=== PATIENT | female | born 1950 | race Asian ===

== ENCOUNTER 2017-10-02 19:15 | Emergency (ER) | payer MEDICARE, OTHER, SELFPAY ==
[2017-10-02 19:26] VITALS: BP 148/89; PULSE 92; RESP 12; TEMP 36.4; O2SAT 99; BMI 24.2
[2017-10-02 20:30] VITALS: BP 125/76; PULSE 86; RESP 14; O2SAT 96
--- NOTE | 2017-10-02 20:55 | ED_ITS ---
HPI - Allergic Reaction <ADELINA Gonzalez - Last Filed: 10/02/17 22:25> General Chief complaint: Allergic Reaction Stated complaint: BEE STING RIGHT HAND AND RIGHT LEG Time Seen by Provider: 10/02/17 20:02 Source: patient Mode of arrival: ambulatory Limitations: no limitations History of Present Illness HPI narrative: 66-year-old female here for complaint of bee stings to her right leg into her right hand. She states that she was stung earlier today in the morning. She reports that after she was done she has some swelling into her face and some feeling of dryness to her throat making it difficult for for swallow. She states that those symptoms have resolved by the time she reported to the emergency room today. She denies any prior history of having anaphylactic type of response to any insect stings. So complaints at this time now are her swelling to her right lower extremity into her right hand. No other concerns or complaints at this time. MD complaint: allergic reaction Related Data Home Medications Medication Instructions Recorded Confirmed amlodipine [Norvasc] 2.5 mg PO QDAY #0 01/20/17 aspirin 81 mg PO QDAY #0 01/20/17 atorvastatin [Lipitor] 20 mg PO QDAY #0 01/20/17 calcium carbonate-vitamin D3 1 tab PO BID #0 01/20/17 [Oyster Shell Calcium-Vit D3] lisinopril [Zestril] 20 mg PO QDAY #0 01/20/17 Previous Rx's Medication Instructions Recorded acetaminophen 650 mg PO Q4HP PRN #30 tab 02/04/17 docusate sodium [Colace] 100 mg PO BID #14 cap 02/04/17 ibuprofen 400 mg PO Q6HP PRN #20 tab 02/04/17 oxycodone 5 mg PO Q4HP PRN #30 tab 02/04/17 sennosides [Senokot] 8.6 mg PO QDAY #10 tab 02/04/17 cetirizine 10 mg PO DAILY PRN #4 tab 10/02/17 epinephrine [EpiPen 2-Damaso] 0.3 mg IM Q30M PRN #2 each 10/02/17 prednisone 20 mg PO DAILY #3 tab 10/02/17 Allergies Allergy/AdvReac Type Severity Reaction Status Date / Time No Known Drug Allergies Allergy Verified 10/02/17 19:30 Review of Systems <ADELINA Gonzalez - Last Filed: 10/02/17 22:25> Constitutional Denies chills, Denies fatigue, Denies fever(s), Denies lethargy and Denies weakness Eyes Denies change in vision, Denies eye discharge, Denies irritation and Denies loss of vision ENT Ears, Nose, Mouth, and Throat: Denies change in voice, Denies neck pain and Denies sore throat Cardiovascular Denies dyspnea and Denies dyspnea on exertion Respiratory Denies cough, Denies dyspnea, Denies dyspnea on exertion and Denies wheezing Gastrointestinal Gastrointestinal: Denies abdominal pain, Denies change in bowel habits, Denies diarrhea, Denies nausea and Denies vomiting Genitourinary Denies hematuria, Denies flank pain, Denies urinary incontinence and Denies urinary urgency Musculoskeletal Denies neck pain Comments: Swelling and erythema to the right hand and also to the right lower extremity at site of insect bite. Integumentary/Breasts Denies pruritus, Denies erythema, Denies rash and Denies wounds Neurologic Denies confusion, Denies loss of vision and Denies weakness Psychiatric Denies anxiety, Denies confusion, Denies depression, Denies homicidal ideation and Denies suicidal ideation Endocrine Denies fatigue and Denies flushing Hematologic/Lymphatic Denies easy bruising Allergic/Immunologic Denies wheezing Exam <ADELINA Gonzalez - Last Filed: 10/02/17 22:25> Initial Vital Signs Initial Vital Signs: Vital Signs Temperature 97.5 F L 10/02/17 19:26 Pulse Rate 92 H 10/02/17 19:26 Respiratory Rate 12 10/02/17 19:26 Blood Pressure 148/89 H 10/02/17 19:26 Pulse Oximetry 99 10/02/17 19:26 Const General: cooperative and well developed Nutritional Appearance: well nourished Orientation: alert, awake, oriented x3 and not confused HENGA Mouth: oral mucosae normal, oropharynx normal and moist mucous membranes Eyes Conjunctivae: conjunctivae normal Sclera: sclerae normal Pupils: PERRL EOM: EOM intact bilaterally Neck Neck: normal visual inspection, trachea midline, No lymphadenopathy, No midline deformity and No JVD Lymphatic: No lymphedema Resp Effort & Inspection: normal respiratory effort, able to speak in complete sentences, no respiratory distress and no use of accessory muscles Auscultation: clear to auscultation bilaterally, no rales, no rhonchi and no wheezes Cardio Rate: regular rate Rhythm: regular rhythm Heart Sounds: no click, no gallops, no murmurs and no rubs Skin General: no rashes or lesions noted, No jaundice and No petechiae Neuro General: alert, oriented x3, gait normal and no focal motor deficits Speech: speech normal Extrem Other: Swelling to the dorsal aspect of the right hand with some erythema. Swelling to the lateral aspect of the lower right extremity. Distal CMS is intact. <Mary Nichole DO - Last Filed: 10/03/17 05:42> Initial Vital Signs Initial Vital Signs: Vital Signs Temperature 97.5 F L 10/02/17 19:26 Pulse Rate 92 H 10/02/17 19:26 Respiratory Rate 12 10/02/17 19:26 Blood Pressure 148/89 H 10/02/17 19:26 Pulse Oximetry 99 10/02/17 19:26 Course <ADELINA Gonzalez - Last Filed: 10/02/17 22:25> Orders Ordered: Discontinued Medications Diphenhydramine HCl (Benadryl) 25 mg PO NOW ONE Stop: 10/02/17 20:53 Last Admin: 10/02/17 21:29 Dose: 25 mg Prednisone (Deltasone) 20 mg PO NOW ONE Stop: 10/02/17 20:53 Last Admin: 10/02/17 21:29 Dose: 20 mg Vital Signs - 8 hr 10/02/17 21:48 Pulse Rate 77 Respiratory Rate 20 Blood Pressure 146/85 H Pulse Oximetry 98 <DO Rebeca Carrillo Last Filed: 10/03/17 05:42> Orders Ordered: Discontinued Medications Diphenhydramine HCl (Benadryl) 25 mg PO NOW ONE Stop: 10/02/17 20:53 Last Admin: 10/02/17 21:29 Dose: 25 mg Prednisone (Deltasone) 20 mg PO NOW ONE Stop: 10/02/17 20:53 Last Admin: 10/02/17 21:29 Dose: 20 mg Vital Signs - 8 hr 10/02/17 21:48 Pulse Rate 77 Respiratory Rate 20 Blood Pressure 146/85 H Pulse Oximetry 98 MDM - Allergic Reaction <ADELINA Gonzalez - Last Filed: 10/02/17 22:25> [facility] Narrative Medical decision making narrative: At time of exam patient only had local reaction to the right hand into lower extremity. No signs and symptoms of distress no signs and symptoms of anaphylaxis. However subjective reports of face swelling and some sensation to her throat are concerning for possible anaphylactoid type response earlier in the day that has resolved. She is prescribed a EpiPen to have on her and have with her in case of similar symptoms. She is given Benadryl in the emergency room tonight and along with prednisone. She is prescribed a short course of prednisone and also Zyrtec to help relieve with her symptoms. Follow up with primary care provider the next few days for re-evaluation. Return emergency room for any worsening symptoms. Discharge Plan Departure Patient Disposition: Home, Self-Care Clinical Impression: Localized swelling on right hand, Accidental bee sting Discharge Date/Time: 10/02/17 21:49 Interventions: ED Discharge Assessment Last Done: 10/02/17 21:48 Instructions: DI for Insect Bites and Stings Activity Restrictions/Additional Instructions: Signs and symptoms at time of exam are of a localized response to the hand and right lower leg due to the bee sting. You are prescribed cetirizine an antihistamine use as directed along with prednisone steroid for anti- inflammatory effects over the next several days use as directed. Due to symptoms he reported is having earlier are concerning for having possible anaphylaxis type of reaction. You are prescribed an EpiPen keep with you to have ready in case she gets down again and have similar or worse symptoms from an insect sting. Follow up with her primary care provider in the next couple days for re-evaluation. For any worsening symptoms return to the emergency room. Prescriptions: New cetirizine 10 mg tablet 10 mg PO DAILY PRN (Reason: allergy symptoms) Qty: 4 RF: 0 prednisone 20 mg tablet 20 mg PO DAILY Qty: 3 RF: 0 epinephrine [EpiPen 2-Damaso] 0.3 mg/0.3 mL auto-injector 0.3 mg IM Q30M PRN (Reason: anaphylaxis) Qty: 2 RF: 0 No Action aspirin 81 MG tablet,delayed release (DR/EC) 81 mg PO QDAY Qty: 0 RF: 0 atorvastatin [Lipitor] 20 MG tablet 20 mg PO QDAY Qty: 0 RF: 0 lisinopril [Zestril] 20 MG tablet 20 mg PO QDAY Qty: 0 RF: 0 amlodipine [Norvasc] 2.5 MG tablet 2.5 mg PO QDAY Qty: 0 RF: 0 calcium carbonate-vitamin D3 [Oyster Shell Calcium-Vit D3] 500 MG/200 IU tablet 1 tab PO BID Qty: 0 RF: 0 acetaminophen 325 MG tablet 650 mg PO Q4HP PRNQty: 30 RF: 1 oxycodone 5 MG tablet 5 mg PO Q4HP PRNQty: 30 RF: 0 sennosides [Senokot] 8.6 MG tablet 8.6 mg PO QDAY Qty: 10 RF: 1 docusate sodium [Colace] 100 MG capsule 100 mg PO BID Qty: 14 RF: 1 ibuprofen 400 MG tablet 400 mg PO Q6HP PRNQty: 20 RF: 0 Referrals: Chevy Kapadia [Primary Care Provider] - <Mary Nichole DO - Last Filed: 10/03/17 05:42> Cosign ED Attending Sunilature Attestation: I was immediately available in the department for consultation. Documentation has been reviewed. I agree with assessment and plan.
[2017-10-02] MEDS: predniSONE 20 MG TABLET PO (21:29)
[2017-10-02] MEDS: diphenhydrAMINE 25 MG TABLET PO (21:29)
[2017-10-02 21:48] VITALS: BP 146/85; PULSE 77; RESP 20; O2SAT 98
== END 2017-10-02 21:49 | disposition home or self-care (01) ==
PROVIDERS: Emergency Provider Nurse Practitioner Family; Family Provider Family Medicine; PCP Family Medicine
DX: M79.89 Other specified soft tissue disorders (principal); T63.441A Toxic effect of venom of bees, accidental (unintentional), initial encounter
CPT/HCPCS: 99282; 99283

== ENCOUNTER → 2018-03-20 11:16 | Outpatient (CLI) | payer MEDICARE, OTHER, SELFPAY ==
--- NOTE | 2018-03-20 11:30 | DI.MG.S_ITS ---
Patient Name: LOBO VIVEROS date: 1950 Sex: F Attending Physician: Belkis Indications: Date: 03/20/2018 12:00 At the request of: FREDI ALVAREZ Procedure: MM screening mammo BI BILATERAL DIGITAL SCREENING MAMMOGRAM 3D/2D WITH CAD: 03/20/2018 CLINICAL: Routine screening. Comparison is made to exams dated: 06/19/2016 mammogram, 01/06/2014 mammogram, and 01/06/2013 mammogram - [facility]. There are scattered fibroglandular elements in both breasts. Current study was also evaluated with a Computer Aided Detection (CAD) system. No significant masses, calcifications, or other findings are seen in either breast. There has been no significant interval change. IMPRESSION: NEGATIVE There is no mammographic evidence of malignancy. A 1 year screening mammogram is recommended. This exam was interpreted at Station ID: [id number]. NOTE: For mammograms, a report in lay terms will be sent to the patient. Approximately 15% of breast malignancies will not be visualized mammographically. In the management of a palpable breast mass, a negative mammogram must not discourage biopsy of a clinically suspicious lesion. Electronically Signed By: Santosh ramirez/robert:03/20/2018 21:36:31 letter sent: Normal Exam ACR BI-RADS Category 1: Negative [id number]
== END ==
PROVIDERS: PCP Family Medicine; Visit Provider Family Medicine
DX: Z12.31 Encounter for screening mammogram for malignant neoplasm of breast (principal)
CPT/HCPCS: 77063; 77067

== ENCOUNTER → 2018-06-23 09:37 | Outpatient (CLI) | payer MEDICARE, OTHER, SELFPAY | PROVIDERS: PCP Family Medicine; Visit Provider Family Medicine | DX: M81.0 Age-related osteoporosis without current pathological fracture (principal); Z78.0 Asymptomatic menopausal state | CPT/HCPCS: 77080 ==

== ENCOUNTER 2018-09-26 14:21 | Emergency (ER) | payer MEDICARE, OTHER, SELFPAY ==
[2018-09-26 14:26] VITALS: BP 173/92; PULSE 95; RESP 16; TEMP 37.2; O2SAT 98
[2018-09-26 14:30] VITALS: PULSE 82; O2SAT 99
--- NOTE | 2018-09-26 14:54 | DI.RAD.S_ITS ---
PROCEDURE: XR CHEST 1V INDICATIONS: chest pain TECHNIQUE: One view of the chest was acquired. COMPARISON: [facility], CT, PE STUDY (CTA CHEST), 01/21/2017, 20:42. [facility], CR, ABDOMEN ACUTE SERIES, 01/30/2017, 15:26. FINDINGS: Surgical changes and devices: Previously seen tubes and lines have been removed. Lungs and pleura: Interval improvement in the aeration of the lungs since the prior study has occurred. No focal consolidation, effusion, or pneumothorax is appreciated. Mediastinum: Mediastinal contours appear normal. Heart size is enlarged. There is aortic atherosclerosis. Prominent tortuosity of the lower thoracic aorta similar to the prior CT from 01/21/17. Bones and chest wall: No suspicious bony lesions. Overlying soft tissues appear unremarkable. IMPRESSION: Cardiomegaly without overt heart failure. No acute cardiopulmonary process is evident. Dictated by: Ky Gilmore M.D. on 09/26/2018 at 14:43 Approved by: Ky Gilmore M.D. on 09/26/2018 at 14:45
[2018-09-26 15:27] LABS: Add Manual Diff / Slide Review NO; Basophils Absolute Auto 0 /uL (0-100); Basophils Percent Auto 0.7 % (0-2); Eosinophils Absolute Auto 100 /uL (0-450); Hematocrit 38.1 % (36-46); Hemoglobin 12.8 g/dL (12.0-16.0); Lymphocytes Absolute Auto 1500 /uL (1100-4500); Lymphocytes Percent Auto 29.3 % (25-40); Mean Corpuscular HGB Conc 33.6 % (30-36); Mean Corpuscular Hemoglobin 30.8 PG (26-34); Mean Corpuscular Volume 91.8 fL (80-100); Monocytes Absolute Auto 400 /uL (0-900); Monocytes Percent Auto 7.6 % (3-14); Neutrophils Absolute Auto 3200 /uL (1500-7000); Neutrophils Percent Auto 61.4 % (50-75); Platelet Count 242 X10^3/uL (150-400); Red Blood Cell Count 4.15 X10^6/uL (4.0-5.2); White Blood Cell Count 5.2 X10^3/uL (4.5-11.0)
[2018-09-26 15:29] LABS: Appearance Urine UA CLEAR; Bilirubin Urine UA NEGATIVE (NEGATIVE); Color Urine UA YELLOW; Glucose Urine UA NEGATIVE (Negative); Ketones Urine UA NEGATIVE (NEGATIVE); Leukocyte Esterase Urine UA 1+ (NEGATIVE); Nitrite Urine UA NEGATIVE (Negative); Occult Blood Urine UA TRACE-INTACT (Negative); Protein Urine UA NEGATIVE (Negative); Urobilinogen Urine UA 0.2 E.U./dL (0.2); pH Urine UA 6.5 (4.5-8.0)
[2018-09-26 15:35] LABS: Prothrombin Time 11.3 SECONDS (10.1-12.7)
[2018-09-26 15:38] LABS: PTT Partial Thromboplastin Tim 35 SECONDS (26.4-36.2)
--- NOTE | 2018-09-26 15:38 | ED.HA ---
HPI - Headache General Chief Complaint: Headache Stated Complaint: Chronic Hypertesion, facial numbness, headache Time Seen by Provider: 09/26/18 15:24 Source: patient and family () Mode of arrival: ambulatory Limitations: no limitations History of Present Illness HPI Narrative: Pleasant 59-year-old female comes to the emergency department with complaint of elevated blood pressure, she states the lower portion of her face bilaterally feels numb. She states she has had headache that alternates from left to right side of her head. And her neck alternating on the left and right side she sometimes feels like her nerves in her neck. Patient states that this started 2 days ago. She states that she noted that her blood pressures been elevated. She has had a little bit of vision change after having laser surgery on her left eye she has had a little bit of floaters. She denies any current chest pain or shortness of breath, occasionally nauseated no vomiting. She states sometimes it feels like lot a gas is going through her abdomen. Denies issues with bowel movements or urination swelling or weakness, numbness or difficulty with use of her extremities. Patient states she sometimes has cramping in her legs. She takes lisinopril, she takes amlodipine which was increased from 2.5-5 mg 2 days ago because her blood pressures been elevated. She also takes atorvastatin aspirin 81 mg. She had her appendix out last and then had a complication with herniation and had to have repeat surgery. No allergies, no tobacco, alcohol or illicit. PCP is Dr. Copeland and she sees Dr. Tamayo also. Patient does have some joint changes with her distal interphalangeal joints in all 10 fingers. There is slightly enlarged and flexed. Patient states they have been like this for most of her life. Related Data Home Medications Medication Instructions Recorded Confirmed aspirin 81 mg PO QDAY #0 01/20/17 09/26/18 calcium carbonate-vitamin D3 1 tab PO BID #0 01/20/17 09/26/18 [Oyster Shell Calcium-Vit D3] lisinopril [Zestril] 30 mg PO DAILY #0 01/20/17 09/26/18 acetaminophen 650 mg PO Q4HP PRN 09/26/18 09/26/18 amlodipine 5 mg PO DAILY 09/26/18 09/26/18 atorvastatin 20 mg PO DAILY 09/26/18 09/26/18 famotidine 20 mg PO BID 09/26/18 09/26/18 fluticasone propionate 1 spray INTRANASAL DAILY PRN 09/26/18 09/26/18 ibuprofen 400 mg PO Q6HP PRN 09/26/18 09/26/18 olopatadine [Patanol] 1 drp OPHTHALMIC (EYE) DIRECTED 09/26/18 09/26/18 Previous Rx's Medication Instructions Recorded cetirizine 10 mg PO DAILY PRN #4 tab 10/02/17 epinephrine [EpiPen 2-Damaso] 0.3 mg IM Q30M PRN #2 each 10/02/17 amlodipine 10 mg PO DAILY #20 tab 09/26/18 Allergies Allergy/AdvReac Type Severity Reaction Status Date / Time No Known Drug Allergies Allergy Verified 10/02/17 19:30 Review of Systems Review of Systems ROS Unobtainable: All systems reviewed & are unremarkable except as noted in HPI and below Constitutional Denies chills, Denies fever(s), Reports headache(s), Denies lethargy and Denies weakness Eyes Reports change in vision (some floaters after laser to left eye) ENT Ears, Nose, Mouth, and Throat: Denies vertigo, Reports dizziness (sometimes), Reports headache(s), Denies neck pain and Denies other (facial droop, no speech issues) Cardiovascular Denies chest pain, Denies diaphoresis, Denies syncope, Denies edema, Denies irregular heart rhythm, Denies lightheadedness, Denies palpitations, Denies dyspnea, Denies dyspnea on exertion and Denies orthopnea Respiratory Denies change in phlegm color, Denies chest congestion, Denies cough, Denies dyspnea, Denies dyspnea on exertion and Denies wheezing Gastrointestinal Gastrointestinal: Denies abdominal pain, Denies melena, Denies hematochezia, Denies change in bowel habits, Denies diarrhea, Denies nausea and Denies vomiting Genitourinary Denies hematuria, Denies urinary frequency, Denies dysuria, Denies flank pain, Denies urinary incontinence and Denies urinary urgency Musculoskeletal Reports as per HPI, Denies abnormal gait, Denies arthralgias, Reports joint swelling, Denies neck pain and Reports numbness (lower face b/l) Neurologic Denies abnormal movements, Denies abnormal speech, Denies abnormal gait, Denies confusion, Denies vertigo, Reports dizziness (sometimes), Denies syncope, Reports headache(s), Denies focal weakness, Reports numbness (lower face b/l) and Denies weakness Psychiatric Denies confusion Endocrine Denies palpitations Allergic/Immunologic Denies wheezing [facility] Medical History (Updated 09/26/18 @ 16:44 by Vaishnavi Amador DO) Dyslipidemia (Chronic) Hypertension (Chronic) Surgical History (Updated 09/26/18 @ 16:07 by Vaishnavi Amador DO) Hx of appendectomy (Chronic) Social History (Updated 09/26/18 @ 16:08 by Vaishnavi Amador DO) marital status: Smoking Status: Never smoker alcohol intake: never substance use type: does not use Social History (Updated 09/26/18 @ 16:08 by Vaishnavi Amador DO) marital status: Smoking Status: Never smoker alcohol intake: never substance use type: does not use Exam Narrative Exam Narrative: GEN: well nourished, well appearing female, alert and oriented x 3, patient appears to be in no acute distress. HEENT: Atraumatic, pupils are equal round reactive to light, extraocular movements are intact, nares are clear, TMs are clear with no fluid, there is no conjunctival pallor. Throat is clear without any exudates, erythema, tonsillar enlargement or uvular deviation, no facial droop, + sensation to light touch HEART: Regular rate and rhythm without murmur, clicks, rubs. Pulses are equal in upper and lower extremities LUNGS:Lungs clear to auscultation, no wheezes, rales, crackles, chest moves symmetrically ABD:bowel sounds normal, soft, non-tender, no guarding, rebound, rigidity, no masses noted, no hepatosplenomegaly :No CVA tenderness MSCL: Non-tender, no muscle atrophy, muscles strength 5/5 upper and lower extremities, full range of motion, normal gait NEURO:CN 2-12 intact, sensation normal, reflexes 2/4 upper and lower extremities. finger nose finger test normal, heel morrow test normal, romberg normal Initial Vital Signs Initial Vital Signs: Vital Signs Temperature 99 F 09/26/18 14:26 Pulse Rate 95 H 09/26/18 14:26 Respiratory Rate 16 09/26/18 14:26 Blood Pressure 173/92 H 09/26/18 14:26 Pulse Oximetry 98 09/26/18 14:26 Scores NIH Stroke Scale Level of Conciousness: Alert, keenly responsive Ask month/age: Answers both questions correctly. Open/close eyes, close hand: Performs both tasks correctly Best gaze horizontal: Normal Visual becker: No visual loss Facial palsy: Normal symetrical movement Left arm drift: No drift for full 10 sec Right arm drift: No drift for full 10 sec Left leg drift: No drift for full 10 sec Right leg drift: No drift for full 10 sec Limb ataxia: Absent Sensory on face/arms/legs: Normal, no sensory loss Best language: No aphasia, normal Dysarthria: Normal Extinction or inattention: No abnormality Total NIH Stroke scale score: 0 Course Orders Ordered: ED Orders 09/26/18 14:54 XR chest 1V Stat EKG-12 Lead Stat 09/26/18 15:00 Urinalysis and Microscopic Stat Urine Culture Stat 09/26/18 15:15 Complete Blood Count AUTO DIFF Stat Comprehensive Metabolic Panel Stat Lipase Stat Partial Thromboplastin Time Stat Prothrombin Time INR Stat Troponin & CK Cardiac Panel Stat 09/26/18 16:02 CT head/brain wo con Stat Discontinued Medications Aspirin (Aspirin Chew) 324 mg PO NOW ONE Stop: 09/26/18 16:46 Last Admin: 09/26/18 16:57 Dose: 324 mg Vital Signs - 8 hr 09/26/18 14:26 09/26/18 14:30 09/26/18 16:30 Temperature 99 F Pulse Rate 95 H 82 72 Respiratory Rate 16 20 Blood Pressure 173/92 H Blood Pressure [Left Arm] 114/83 Pulse Oximetry 98 99 99 09/26/18 17:15 Temperature Pulse Rate 69 Respiratory Rate 14 Blood Pressure Blood Pressure [Left Arm] 124/80 Pulse Oximetry 100 MDM - Headache Lab Data Attestation: I reviewed the patient's lab results. Result diagrams: 09/26/18 15:15 09/26/18 15:15 Lab Results 09/26/18 09/26/18 09/26/18 Range/Units 15:00 15:15 15:15 WBC 5.2 (4.5-11.0) X10^3/uL RBC 4.15 (4.0-5.2) X10^6/uL Hgb 12.8 (12.0-16.0) g/dL Hct 38.1 (36-46) % MCV 91.8 (80-100) fL MCH 30.8 (26-34) PG MCHC 33.6 (30-36) % RDW 13.0 (11.6-14.8) % Plt Count 242 (150-400) X10^3/uL Neut % (Auto) 61.4 (50-75) % Lymph % (Auto) 29.3 (25-40) % Kidder % (Auto) 7.6 (3-14) % Eos % (Auto) 1.0 L (2-4) % Baso % (Auto) 0.7 (0-2) % Neut # (Auto) 3200 (8683-2475) /uL Lymph # (Auto) 1500 (4066-8192) /uL Kidder # (Auto) 400 (0-900) /uL Eos # (Auto) 100 (0-450) /uL Baso # (Auto) 0 (0-100) /uL PT 11.3 (10.1-12.7) SECONDS INR 1.0 (0.9-1.3) APTT 35 (26.4-36.2) SECONDS Sodium (137-145) mmol/L Potassium (3.4-5.1) mmol/L Chloride (98-107) mmol/L Carbon Dioxide (22-32) mmol/L BUN (7-17) mg/dL Creatinine (0.52-1.04) mg/dL Estimated GFR (>60) mL/min BUN/Creatinine Ratio (6-22) Glucose (80-110) mg/dL Calcium (8.4-10.2) mg/dL Total Bilirubin (0.2-1.3) mg/dL AST (14-36) IU/L ALT (9-52) IU/L Alkaline Phosphatase (38-126) U/L Total Creatine Kinase (30-135) U/L CK-MB (CK-2) (<2.37) ng/mL CK-MB (CK-2) Rel Index (1.5-5.0) % Troponin I (0.01-0.034) ng/mL Total Protein (6.3-8.2) g/dL Albumin (3.5-5.0) g/dL Globulin (1.7-4.1) g/dL Albumin/Globulin Ratio (1.0-2.8) Lipase (23-300) U/L Urine Color Yellow Urine Appearance Clear Urine pH 6.5 (4.5-8.0) Ur Specific [place] 1.010 (1.000-1.035) Urine Protein Negative (Negative) Urine Glucose (UA) Negative (Negative) g/dL Urine Ketones Negative (NEGATIVE) Urine Occult Blood Trace-intact (Negative) Urine Nitrate Negative (Negative) Urine Bilirubin Negative (NEGATIVE) Urine Urobilinogen 0.2 (0.2) E.U./dL Ur Leukocyte Esterase 1+ H (NEGATIVE) Urine RBC 1-5/hpf (0-5/HPF) Urine WBC 1-5/hpf (0-5/HPF) Ur Squamous Epith Cells 1-5 /hpf (0-5/HPF) Urine Bacteria Few (2-10) H (None) Ur Culture Indicated? Specimen cultured 09/26/18 Range/Units 15:15 WBC (4.5-11.0) X10^3/uL RBC (4.0-5.2) X10^6/uL Hgb (12.0-16.0) g/dL Hct (36-46) % MCV (80-100) fL MCH (26-34) PG MCHC (30-36) % RDW (11.6-14.8) % Plt Count (150-400) X10^3/uL Neut % (Auto) (50-75) % Lymph % (Auto) (25-40) % Kidder % (Auto) (3-14) % Eos % (Auto) (2-4) % Baso % (Auto) (0-2) % Neut # (Auto) (5068-4540) /uL Lymph # (Auto) (3749-0440) /uL Kidder # (Auto) (0-900) /uL Eos # (Auto) (0-450) /uL Baso # (Auto) (0-100) /uL PT (10.1-12.7) SECONDS INR (0.9-1.3) APTT (26.4-36.2) SECONDS Sodium 135 L (137-145) mmol/L Potassium 4.2 (3.4-5.1) mmol/L Chloride 98 (98-107) mmol/L Carbon Dioxide 26 (22-32) mmol/L BUN 16 (7-17) mg/dL Creatinine 0.80 (0.52-1.04) mg/dL Estimated GFR > 60.0 (>60) mL/min BUN/Creatinine Ratio 20.0 (6-22) Glucose 124 H (80-110) mg/dL Calcium 9.1 (8.4-10.2) mg/dL Total Bilirubin 0.5 (0.2-1.3) mg/dL AST 26 (14-36) IU/L ALT 19 (9-52) IU/L Alkaline Phosphatase 79 (38-126) U/L Total Creatine Kinase 107 (30-135) U/L CK-MB (CK-2) 1.11 (<2.37) ng/mL CK-MB (CK-2) Rel Index 1.0 L (1.5-5.0) % Troponin I < 0.012 (0.01-0.034) ng/mL Total Protein 7.8 (6.3-8.2) g/dL Albumin 4.5 (3.5-5.0) g/dL Globulin 3.3 (1.7-4.1) g/dL Albumin/Globulin Ratio 1.4 (1.0-2.8) Lipase 214 (23-300) U/L Urine Color Urine Appearance Urine pH (4.5-8.0) Ur Specific [place] (1.000-1.035) Urine Protein (Negative) Urine Glucose (UA) (Negative) g/dL Urine Ketones (NEGATIVE) Urine Occult Blood (Negative) Urine Nitrate (Negative) Urine Bilirubin (NEGATIVE) Urine Urobilinogen (0.2) E.U./dL Ur Leukocyte Esterase (NEGATIVE) Urine RBC (0-5/HPF) Urine WBC (0-5/HPF) Ur Squamous Epith Cells (0-5/HPF) Urine Bacteria (None) Ur Culture Indicated? Imaging Data Chest x-ray: Radiologist's impression: [address] [address] XRay Report Signed Patient: Wen Marsh RMR#: [id number] : 1950Acct:[id number] Age/Sex: 67 / FDate of Service: 09/26/18 Loc: ED Accession Number: [id number] Procedure: XR chest 1V Ordering Provider: Vaishnavi Amador D.O. PROCEDURE: XR CHEST 1V INDICATIONS: chest pain TECHNIQUE: One view of the chest was acquired. COMPARISON: [facility], CT, PE STUDY (CTA CHEST), 01/21/2017, 20:42. [facility], CR, ABDOMEN ACUTE SERIES, 01/30/2017, 15:26. FINDINGS: Surgical changes and devices: Previously seen tubes and lines have been removed. Lungs and pleura: Interval improvement in the aeration of the lungs since the prior study has occurred. No focal consolidation, effusion, or pneumothorax is appreciated. Mediastinum: Mediastinal contours appear normal. Heart size is enlarged. There is aortic atherosclerosis. Prominent tortuosity of the lower thoracic aorta similar to the prior CT from 01/21/17. Bones and chest wall: No suspicious bony lesions. Overlying soft tissues appear unremarkable. IMPRESSION: Cardiomegaly without overt heart failure. No acute cardiopulmonary process is evident. Dictated by: Ky Gilmore M.D. on 09/26/2018 at 14:43 Approved by: Ky Gilmore M.D. on 09/26/2018 at 14:45 ECG Data Attestation: I personally reviewed and interpreted this ECG as follows: Prior ECG tracings: available for review Interpretation: Sinus rhythm 1st degree AV block. Supra ventricular premature complexes. He does 75, [place] 241 QRS [address] elevation or depression. [facility] Narrative Medical decision making narrative: Patient comes in with complaint of headaches that alternate sides, numbness although she has sensation to light touch. In sort of a an odd sensation on her bilateral necks. That also comes and goes. She has been a little bit elevated blood pressure. They adjusted her medication 2 days ago and it sounds like they also adjusted her lisinopril prior to that. The patient has not had any changes that are consistent with stroke-like changes. Plan for head CT, chest x-ray lab work and re-evaluation. Patient NIH 0. Discussed with Dr. Mckinney who is covering for patient's primary care Dr. Tamayo, has patient's NIH is 0 likely subacute and patient would like to return home. Blood pressure is more controlled although initially was quite high at 170. He would like to increase her amlodipine to 10 mg daily, increase her aspirin to 324 mg and they have set up for 10:15 a.m. on Saturday for follow-up and for full stroke workup. Discussed with patient and they are comfortable with this plan, we discussed signs and symptoms to watch for and reasons to return. Discharge Plan Departure Patient Disposition: Home Clinical Impression: Hypertension, CVA (cerebral vascular accident) Instructions: DI for Stroke-Ischemic Activity Restrictions/Additional Instructions: Follow up on Saturday with Dr. Tamayo at 10:15am. Your appointment has been scheduled. Increase your amlodipine to 10mg daily. Increase your aspirin to 324mg daily. Return to the emergency department for any new or changing symptoms such as weakness, facial droop, difficulty with movement of your extremities, passing out, new chest pain, shortness of breath, difficulty with speech or other new or concerning symptoms. Prescriptions: New amlodipine 10 mg tablet 10 mg PO DAILY Qty: 20 RF: 0 No Action aspirin 81 MG tablet,delayed release (DR/EC) 81 mg PO QDAY Qty: 0 RF: 0 lisinopril [Zestril] 20 MG tablet 30 mg PO DAILY Qty: 0 RF: 0 calcium carbonate-vitamin D3 [Oyster Shell Calcium-Vit D3] 500 MG/200 IU tablet 1 tab PO BID Qty: 0 RF: 0 cetirizine 10 mg tablet 10 mg PO DAILY PRN (Reason: allergy symptoms) Qty: 4 RF: 0 epinephrine [EpiPen 2-Damaso] 0.3 mg/0.3 mL auto-injector 0.3 mg IM Q30M PRN (Reason: anaphylaxis) Qty: 2 RF: 0 atorvastatin 20 mg tablet 20 mg PO DAILY RF: 0 amlodipine 5 mg tablet 5 mg PO DAILY RF: 0 famotidine 20 mg tablet 20 mg PO BID RF: 0 olopatadine [Patanol] 0.1 % drops 1 drp ophthalmic (eye) DIRECTED RF: 0 acetaminophen 325 MG tablet 650 mg PO Q4HP PRN (Reason: pain) RF: 0 fluticasone propionate 50 mcg/actuation spray,suspension 1 spray intranasal DAILY PRN (Reason: Allergy Symptoms) RF: 0 ibuprofen 400 MG tablet 400 mg PO Q6HP PRN (Reason: pain) RF: 0 Referrals: Chevy Kapadia [Primary Care Provider] - Patricia Tamayo MD [Physician] -
[2018-09-26 15:41] LABS: Alanine Aminotransferase 19 IU/L (9-52); Albumin 4.5 g/dL (3.5-5.0); Albumin Globulin Ratio 1.4 (1.0-2.8); Alkaline Phosphatase 79 U/L (38-126); Aspartate Aminotransferase 26 IU/L (14-36); Bilirubin Total 0.5 mg/dL (0.2-1.3); Blood Urea Nitrogen 16 mg/dL (7-17); Calcium 9.1 mg/dL (8.4-10.2); Carbon Dioxide 26 mmol/L (22-32); Chloride 98 mmol/L (98-107); Creatine Kinase 107 U/L (30-135); Estimated Glomerular Filt Rate > 60.0 mL/min (>60); Globulin 3.3 g/dL (1.7-4.1); Glucose 124 mg/dL (80-110); HEMOLYSIS < 15 (0-50); Lipase 214 U/L (23-300); Potassium 4.2 mmol/L (3.4-5.1); Sodium 135 mmol/L (137-145); Total Protein 7.8 g/dL (6.3-8.2)
[2018-09-26 15:50] LABS: RBC Urine 1-5/HPF (0-5/HPF); Squamous Epithelial Cell Urine 1-5 /HPF (0-5/HPF); WBC Urine 1-5/HPF (0-5/HPF)
[2018-09-26 15:51] LABS: Bacteria Urine Few (2-10); Culture Indicated Urine Specimen Cultured
[2018-09-26 15:53] LABS: Troponin I < 0.012 ng/mL (0.01-0.034)
[2018-09-26 15:57] LABS: Creatine Kinase MB 1.11 ng/mL (<2.37)
--- NOTE | 2018-09-26 16:02 | DI.CT.S_ITS ---
PROCEDURE: CT HEAD/BRAIN WO CON INDICATIONS: headache, hypertension, facial numbness b/l. TECHNIQUE: Noncontrast 4.5 mm thick angled axial sections acquired from the foramen magnum to the vertex, with coronal and sagittal reformats. For radiation dose reduction, the following was used: automated exposure control, adjustment of mA and/or kV according to patient size. COMPARISON: None. FINDINGS: Image quality: Excellent. CSF spaces: Basal cisterns are patent. No extra-axial fluid collections. The ventricles are symmetric in size and shape. Brain: There may be a lacunar infarct in the left caudate. No intracranial bleeds or masses. There is mild cerebral volume loss for age, with resultant ventricular and sulcal prominence. There are mild periventricular and deep white matter chronic small vessel ischemic changes. There is intracranial internal carotid artery atherosclerosis. Skull and face: Calvarium and visualized facial bones appear intact, without suspicious lesions. Sinuses: Visualized sinuses and mastoids are clear. IMPRESSION: 1. Suspect a lacunar infarct of the left caudate, which may be subacute. 2. Cerebral volume loss and chronic microvascular ischemic changes. Dictated by: Tiesha Sharpe M.D. on 09/26/2018 at 16:23 Approved by: Tiesha Sharpe M.D. on 09/26/2018 at 16:29
[2018-09-26 16:30] VITALS: BP 114/83; PULSE 72; RESP 20; O2SAT 99
[2018-09-26] MEDS: ASPIRIN 81 MG TAB 324 MG PO (16:57)
[2018-09-26 17:15] VITALS: BP 124/80; PULSE 69; RESP 14; O2SAT 100
[2018-09-26 17:41] VITALS: BP 126/86; PULSE 73; RESP 20; O2SAT 98
== END 2018-09-26 17:42 | disposition home or self-care (01) ==
PROVIDERS: Emergency Provider Emergency Medicine; PCP Family Medicine
DX: I10 Essential (primary) hypertension (principal); I63.9 Cerebral infarction, unspecified
CPT/HCPCS: 36591; 70450; 71045; 80053; 81001; 82550; 82553; 83690; 84484; 85025; 85610; 85730; 87077; 87086; 87147; 93005; 99283; 99285

== ENCOUNTER → 2018-10-08 08:41 | Outpatient (CLI) | payer MEDICARE, OTHER, SELFPAY ==
--- NOTE | 2018-10-08 | DI.MRI.S_ITS ---
PROCEDURE: MR STROKE Pre- and post-contrast brain MRI, non-contrast brain MR angiogram, pre- and postcontrast neck MR angiogram INDICATIONS: TIA, AAA W/O RUPTURE, L COMON ILIAC ANERYSM TECHNIQUE: Brain: Noncontrast axial T1 spin echo, axial T2 fast spin echo, sagittal and axial FLAIR, coronal T2 fast spin echo, axial gradient echo, axial diffusion and ADC through the brain. After the administration of contrast, axial 3D VIBE of the cranial vasculature and brain. Brain MRA: Non-contrast 3-D time of flight MR angiogram, with multiple wslxhgd-mafwqkqnz-zwlvbtskqs (MIP) reformats performed. Neck MRA: Axial and sagittal TruFISP through the neck. Coronal dynamic MR angiogram during administration of contrast in the arterial and venous phases, with 3-dimenstional paclzxr-emieoxevf-oyfhprgznj (MIP) reformats constructed from subtraction images. COMPARISON: [facility], CT, CT HEAD/BRAIN WO CON, 09/26/2018, 16:03. FINDINGS: Image quality: Degraded by uncontrollable motion artifact. BRAIN: CSF spaces: Ventricles are normal in size and shape. Basal cisterns are patent. No extra-axial fluid collections. Brain: No intracranial bleeds or mass effects. [place]-white matter interface is normal. Diffusion weighted images show no acute ischemic insults. This includes within the area of the left caudate, as described on the prior comparison CT, this suggests chronic age of the CT finding. Scattered small white matter signal changes, probably represent chronic microvascular ischemic disease, versus statistically less likely demyelination or other infectious, inflammatory, neurodegenerative etiology, technically nonspecific. Brainstem appears normal. Normal intravascular flow voids are present. No abnormal intracranial enhancement. Skull and face: Calvarial marrow signal is normal. Orbits appear normal. Sinuses: Sinuses and mastoids are clear. BRAIN MR ANGIOGRAM: Anterior circulation: Intracranial internal carotid arteries are normal in size and enhancement. The flow within the paired anterior cerebral arteries is normal and symmetric. The flow within the middle cerebral arteries is normal and symmetric. The anterior communicating artery is seen. No stenoses, occlusions, or aneurysms. Posterior circulation: The visualized portions of the vertebral arteries demonstrate normal caliber, and join to form a normal appearing basilar artery. The flow within the posterior cerebral arteries is normal and symmetric. No stenoses, occlusions, or aneurysms. NECK MR ANGIOGRAM: Carotids: Great vessels demonstrate a conventional anatomy as they arise from the aortic arch. The origins of the common carotid arteries appear patent. The calibers and courses of both common carotid arteries are normal. The bifurcation regions appear normal bilaterally. The internal carotid arteries demonstrate normal course and caliber. Posterior circulation: The origins of the vertebral arteries appear patent. Mildly dominant appearance of the right vertebral artery. The vertebral arteries join to form a normal appearing basilar artery. Miscellaneous: Subclavian arteries appear patent. Pre-contrast images through the neck show no soft tissue abnormalities. IMPRESSION: BRAIN MRI: No evidence of acute ischemia, including within the left caudate. Diffuse small white matter signal changes, probably represent chronic microvascular ischemic disease, versus statistically less likely demyelination or other infectious, inflammatory, neurodegenerative etiology, technically nonspecific. BRAIN MR ANGIOGRAM: No intracranial focal stenosis or occlusion NECK MR ANGIOGRAM: No ICA stenosis. Dictated by: Liam Milian M.D. on 10/08/2018 at 11:12 Approved by: Liam Milian M.D. on 10/08/2018 at 11:20
--- NOTE | 2018-10-08 | DI.CT.S_ITS ---
PROCEDURE: CT ANGIO CHEST ABDOMEN PELVIS INDICATIONS: TIA, AAA W/O RUPTURE, L COMMON ILIAC ANERYSM TECHNIQUE: Precontrast 5 mm thick sections acquired from the lung apices to the iliac crests. After the administration of intravenous contrast, 2.5 mm thick sections again acquired from the lung apices to the iliac crests. Maximum intensity projection (MIP) oblique sagittal and coronal reformats were then acquired. For radiation dose reduction, the following was used: automated exposure control. COMPARISON: [facility], CT, PE STUDY (CTA CHEST), 01/21/2017, 20:42. [facility], CT, ABDOMEN/PELVIS WITH CONTRAST, 01/23/2017, 16:07. FINDINGS: Image quality: Excellent. AORTA: Intramural hematoma: Absent Maximum hematoma thickness: Not applicable. Focal contrast enhancement: Intramural blood pool (< 2 mm neck or imperceptible communication with aortic lumen): Absent. Ulcer-like projection (broad communication with aortic lumen > 3 mm): Absent. Dissection: Absent Mike classification: Not applicable. Maximum aortic diameter: 4.1 cm cm. [If Mike A dissection, > 5.0 cm has a poorer prognosis. If Mike B dissection, > 4.0 cm has a poorer prognosis.] Periaortic hematoma: Absent. CHEST: Lungs and pleura: No acute airspace opacities. No pleural effusions or pneumothorax. Central and peripheral airways are patent and normal in caliber. Mediastinum: Heart is enlarged. No pericardial effusion. Atherosclerotic calcifications are noted in the aorta, great vessels and the coronary vasculature. Ascending thoracic aorta measures 4.1 x 4.3 cm in maximum diameter. The aortic arch measures 3.5 x 3.1 cm in maximum diameter. The descending thoracic aorta measures 2.9 x 2.9 cm in maximum diameter. No mediastinal or hilar adenopathy by size criteria. Central pulmonary arteries are normal in size. Esophagus is normal in caliber. No hiatal hernias. Bones and chest wall: No axillary adenopathy by size criteria. Thyroid gland contains a 1.6 cm hypoattenuating nodule in the left lobe. No suspicious bony lesions. No vertebral body compression fractures. ABDOMEN: Vasculature: Celiac trunk and mesenteric arteries are patent. Renal arteries are also patent. Solid organs: Liver is normal in size and enhancement. Liver is diffusely hypodense with fatty infiltration. Gallbladder contains multiple small gallstones. Biliary system is non dilated. Pancreas enhances normally. Spleen is normal in size and enhancement. No adrenal nodules. Both kidneys are normal in size and enhancement, without hydronephrosis. Peritoneum and bowel: No free fluid or air. Bowel loops are normal in caliber and wall thickness. Nodes and vessels: No retroperitoneal or mesenteric adenopathy by size criteria. Inferior vena cava is normal in morphology. The suprarenal abdominal aorta measures 2.1 x 2.1 cm in maximum diameter. The infrarenal abdominal aorta measures 2.7 x 3.0 cm in maximum diameter. The right common aortic artery measures 1.3 cm in maximum diameter. There is a 2.6 cm fusiform aneurysmal dilatation of the left common aortic artery which is stable compared to prior exam. Miscellaneous: No ventral hernias. PELVIS: Genitourinary: Bladder wall thickness is normal. Miscellaneous: No inguinal hernias or adenopathy. No ventral hernias. Bones: No suspicious bony lesions. Spine degenerative disc disease and facet arthropathy. No vCyst ertebral body compression fractures. IMPRESSION: 1. No evidence of aneurysmal rupture. 2. 2.6 cm left common iliac artery aneurysm. 3. Ascending thoracic aorta at the upper limits of normal for size measuring 4.1 x 4.3 cm. 4. Infrarenal abdominal aorta is at the limits of normal for size measuring 2.7 x 3.0 cm. 5. Cholelithiasis. 6. Hepatic steatosis. 7. Atherosclerosis including the coronary vasculature. 8. Cardiomegaly. 9. 1.6 cm left thyroid nodule. Recommend thyroid ultrasound for definitive characterization. Dictated by: Valentine Dooley MD, PhD on 10/08/2018 at 15:46 Approved by: Valentine Dooley MD, PhD on 10/08/2018 at 16:02
== END ==
PROVIDERS: PCP Family Medicine; Visit Provider Family Medicine
DX: G45.9 Transient cerebral ischemic attack, unspecified (principal); I71.4 Abdominal aortic aneurysm, without rupture; I72.3 Aneurysm of iliac artery; K80.20 Calculus of gallbladder without cholecystitis without obstruction; K76.0 Fatty (change of) liver, not elsewhere classified; I51.7 Cardiomegaly
CPT/HCPCS: 70548; 70553; 71275; 74174; A9579; Q9967

== ENCOUNTER → 2018-10-16 10:18 | Outpatient (CLI) | payer MEDICARE, OTHER, SELFPAY ==
--- NOTE | 2018-10-16 | DI.US.S_ITS ---
PROCEDURE: US THYROID INDICATIONS: NONTOXIC THYROID GOITER TECHNIQUE: Real-time scanning was performed of the thyroid gland, with image documentation. COMPARISON: [facility], CT, CT ANGIO CHEST ABDOMEN PELVIS, 10/08/2018, 10:04. FINDINGS: Right: Thyroid lobe measures 3.9 x 1.6 x 1.5 cm, and is homogeneous in echotexture. Left: Thyroid lobe measures 4.2 x 1.9 x 1.8 cm, and is homogenous in echotexture. Isthmus: 2.0 mm thick. Nodule number: 1 Location: Right mid Size: 0.3 x 0.2 x 0.3 cm. Composition: Cystic Echogenicity: Anechoic Shape: wider than tall. Margins: Smooth Echogenic foci: Comet tail artifact Total points: 0 ACR TI-RADS category: Benign colloid cyst Nodule number: 2 Location: Left inferior Size: 1.7 x 1.6 x 1.6 cm. Composition: Solid Echogenicity: Hypoechoic Shape: wider than tall. Margins: Smooth Echogenic foci: Internal punctate echogenic foci Total points: 7 ACR TI-RADS category: Highly suspicious Nodule number: 3 Location: Left mid Size: 0.7 x 0.4 x 0.6 cm. Composition: Cystic Echogenicity: Anechoic Shape: wider than tall. Margins: Smooth Echogenic foci: Comet tail artifact. Total points: 0 ACR TI-RADS category: Benign colloid cyst IMPRESSION: Bilateral benign colloid cyst and highly suspicious # 2 left thyroid nodule. Recommend sonographically directed fine needle aspiration for pathologic diagnosis. ACR TI-RADS definitions and recommendations: TI-RADS 1 (benign): 0 points. FNA not needed. TI-RADS 2 (not suspicious): 2 points. FNA not needed. TI-RADS 3 (mildly suspicious): 3 points. * FNA if 2.5 cm or larger, follow up if 1.5 cm or larger (at 1, 3, and 5 years). TI-RADS 4 (moderately suspicious): 4-6 points. * FNA if 1.5 cm or larger, follow up if 1 cm or larger (at 1, 2, 3, and 5 years). TI-RADS 5 (highly suspicious): 7 points or more. * FNA if 1 cm or larger, follow up if 0.5 cm or larger (every year for 5 years). Dictated by: Ifeanyi BROOKS Interpreted: Liam Milian MD on 10/16/2018 at 11:13 Approved by: Liam Milian M.D. on 10/16/2018 at 14:54
== END ==
PROVIDERS: PCP Family Medicine; Visit Provider Family Medicine
DX: E04.1 Nontoxic single thyroid nodule (principal)
CPT/HCPCS: 76536

== ENCOUNTER → 2018-10-31 12:33 | Outpatient (CLI) | payer MEDICARE, OTHER, SELFPAY ==
--- NOTE | 2018-10-31 | PATH_ITS ---
Note [facility] Accession Number: [id number] TESTS RESULT FLAG UNITS REF RANGE LAB Clinician Provided Cytology Information No. of containers..01 ThinPrep Vial No. of containers..18 Previously Prepared Cytology Slide 01 LEFT THYROID NODULE DIAGNOSIS: 02 LEFT THYROID NODULE INADEQUATE, INSUFFICIENT CELLS FOR STUDY. B[place]ESDA CATEGORY I. UNSATISFACTORY. VERY SCANT CELLULAR PRESENT FOR EVALUATION. Pathologist ICD10: 02 E04.1 01 BILATERAL BENIGN COLLOID CYST AND HIGHLY SUSPICIOUS #2 LEFT THYROID NODULE. RECOMMEND SONOGRAPHICALLY DIRECTED FINE NEEDLE ASPIRATION FOR PATHOLOGIC DIAGNOSIS. 02 Brittany Hitchcock MD, Pathologist NPI- [id number] Tai Salvador, Whitewasher ([facility]) 01 30 CC, RED, CLEAR RECEIVED: 9 ALCOHOL FIXED AND 9 QUICK STAINED SLIDES WITH 1 RNA VIAL FOR FURTHER TESTING. /VDU FLAG LEGEND: L-Low Normal,H-High Normal,LL-Alert Low,HH-Alert High <-Panic Low,>-Panic High,A-Abnormal,AA-Critical Abnormal Performed at: 01 =Z [facility] [address], [place] [address] Rashad Odonnell MD, 02 [facility] [place] [address] [place] [id number] Natalie Murphy MD, Performed at: 01 [facility] [address], [place], [place] [id number] MD Rashad Odonnell MD Phone: [phone]
--- NOTE | 2018-10-31 | DI.US.S_ITS ---
PROCEDURE: US FINE NEEDLE ASPIRATION INDICATIONS: NONTOXIC SINGLE GOITER TECHNIQUE: The indications, alternatives, benefits, risks, and complications of the procedure were explained to the patient. Written informed consent was obtained and placed in the chart. The thyroid region was examined sonographically and a site was chosen for ultrasound guided percutaneous sampling. The skin was prepared and draped in the usual fashion, and anesthetized with 1% lidocaine infiltrated from the skin down to the thyroid gland. Multiple passes were then performed, with contents emptied into an appropriate pathology specimen container. A bandage was applied to the area of access at completion of the study. COMPARISON: None. FINDINGS: Location(s) of lesion(s) sampled: Left lobe [place]: 25 gauge hypodermic needles. Number of passes: 9 passes in total Medications: 1% lidocaine for local anaesthesia. Complications: None. IMPRESSION: Successful ultrasound-guided thyroid nodule fine needle aspiration, with cytology results pending. Please see chart below for management recommendations based on cytology results. [place] [facility] ReportingRecommendationsNon-diagnostic* Repeat US-guided FNA, with on-site cytology evaluation if possible. * Repeated non-diagnostic nodules without high suspicion US features: close observation vs surgical consult. * Consider surgery if nodule has high suspicion US features, grows >20% in 2 dimensions on followup, or patient has clinical risk factors for malignancy. Benign* If nodule has high suspicion US features: repeat US and FNA within 12 months. * If nodule has low to intermediate suspicion US features: repeat US at 12-24 months. If nodule grows (20% increase in at least 2 dimensions, with minimal increase of 2 mm or >50% change in volume), or development of new suspicious US features, then repeat FNA or continue followup. * If nodule has very low suspicion US features: followup US at >24 months. Atypia of undetermined significance, follicular lesion of undetermined significanceRepeat FNA, molecular testing, followup US, or surgical consult.Follicular neoplasm, suspicious for follicular neoplasmSurgical consult; also consider molecular testing. Suspicious for malignancySurgical consult.MalignantSurgical consult. Dictated by: Liam Milian M.D. on 10/31/2018 at 17:06 Approved by: Liam Milian M.D. on 10/31/2018 at 17:07
== END ==
PROVIDERS: PCP Family Medicine; Visit Provider Family Medicine
DX: E04.1 Nontoxic single thyroid nodule (principal)
CPT/HCPCS: 10005

== ENCOUNTER → 2019-01-07 09:31 | Outpatient (CLI) | payer MEDICARE, OTHER, SELFPAY ==
--- NOTE | 2019-01-07 | DI.US.S_ITS ---
PROCEDURE: US FINE NEEDLE ASPIRATION INDICATIONS: THYROID NODULE. Repeat thyroid fine needle aspiration of a left thyroid nodule, previously aspirated on 10/31/18, for reportedly inadequate sample/results. TECHNIQUE: The indications, alternatives, benefits, risks, and complications of the procedure were explained to the patient. Written informed consent was obtained and placed in the chart. The thyroid region was examined sonographically and a site was chosen for ultrasound guided percutaneous sampling. The skin was prepared and draped in the usual fashion, and anesthetized with 1% lidocaine infiltrated from the skin down to the thyroid gland. Multiple passes were then performed, with the needle subsequently passed to the on-site plastic technician for slide preparation and review. A bandage was applied to the area of access at completion of the study. COMPARISON: [facility], US, US THYROID, 10/16/2018, 10:45. [facility], US, US FINE NEEDLE ASPIRATION, 10/31/2018, 13:38. FINDINGS: Location(s) of lesion(s) sampled: Repeat fine needle aspiration of the left thyroid nodule identified on comparison thyroid ultrasound of 10/16/18 and previously aspirated on comparison exam of 10/31/18. [place]: 25 gauge hypodermic needles. Number of passes: 7 passes were obtained. These needles were given to the on site plastic technician for slide preparation and review. Confirmation of adequate sample by pathology staff was obtained prior to concluding the procedure. Medications: 1% lidocaine for local anaesthesia. Complications: None. Patient specifically denies any pain, difficulty swallowing, or neck symptoms post procedure. Patient was advised to monitor her neck and contact her referring provider or proceed to an emergency room should new post-procedural symptoms develop. Patient was also advised to followup with her referring provider for results. IMPRESSION: Successful repeat ultrasound-guided fine needle aspiration of the previously identified left thyroid nodule with cytology results pending. Please see chart below for management recommendations based on cytology results. [place] [facility] ReportingRecommendationsNon-diagnostic* Repeat US-guided FNA, with on-site cytology evaluation if possible. * Repeated non-diagnostic nodules without high suspicion US features: close observation vs surgical consult. * Consider surgery if nodule has high suspicion US features, grows >20% in 2 dimensions on followup, or patient has clinical risk factors for malignancy. Benign* If nodule has high suspicion US features: repeat US and FNA within 12 months. * If nodule has low to intermediate suspicion US features: repeat US at 12-24 months. If nodule grows (20% increase in at least 2 dimensions, with minimal increase of 2 mm or >50% change in volume), or development of new suspicious US features, then repeat FNA or continue followup. * If nodule has very low suspicion US features: followup US at >24 months. Atypia of undetermined significance, follicular lesion of undetermined significanceRepeat FNA, molecular testing, followup US, or surgical consult.Follicular neoplasm, suspicious for follicular neoplasmSurgical consult; also consider molecular testing. Suspicious for malignancySurgical consult.MalignantSurgical consult. Dictated by: Adriano Pro M.D. on 01/07/2019 at 13:51 Approved by: Adriano Pro M.D. on 01/07/2019 at 14:29
--- NOTE | 2019-01-07 | PATH_ITS ---
Note [facility] Accession Number: [id number] TESTS RESULT FLAG UNITS REF RANGE LAB Clinician Provided Cytology Information No. of containers..01 ThinPrep Vial No. of containers..12 Previously Prepared Cytology Slide 01 LEFT THYROID NODULE DIAGNOSIS: 02 LEFT THYROID NODULE INCONCLUSIVE. BETHESDA CATEGORY III. ATYPIA OF UNDETERMINED SIGNIFICANCE. FOLLICULAR CELLS WITH CYTOLOGIC ATYPIA; BLOOD IS FOCALLY OBSCURING AND PRECLUDES DEFINITIVE EVALUATION. COMMENT:A repeat aspirate after an appropriate interval of observation might be helpful, if clinically indicated. Pathologist ICD10: 02 R89.6 LEFT THYROID NODULE INADEQUATE, INSUFFICIENT CELLS FOR STUDY. [place] CATEGORY I. UNSATISFACTORY. VERY SCANT CELLULAR PRESENT FOR EVALUATION. 02 Brittany Hitchcock MD, Pathologist NPI- [id number] Olamide Andrews, Nurse Researcher ([facility]) 01 30 CC, PINK, CLEAR RECEIVED: 6 ALCOHOL FIXED AND 6 QUICK STAINED SLIDES WITH 1 RNA VIAL FOR FURTHER TESTING. /VDU 01/08/2019 0517 Local FLAG LEGEND: L-Low Normal,H-High Normal,LL-Alert Low,HH-Alert High <-Panic Low,>-Panic High,A-Abnormal,AA-Critical Abnormal Performed at: 01 =Z [facility] [address] [address], [place] [address] Rashad Odonnell MD, 02 [facility] [place] [address] [place] [phone] Natalie Murphy MD, Performed at: [address] [address], [place], [place] [id number] MD Rashad Odonnell MD Phone: [phone]
== END ==
PROVIDERS: PCP Family Medicine; Visit Provider Family Medicine
DX: E04.1 Nontoxic single thyroid nodule (principal)
CPT/HCPCS: 10005

== ENCOUNTER 2019-01-07 19:55 | Emergency (ER) | payer MEDICARE, OTHER, SELFPAY ==
[2019-01-07 19:59] VITALS: BP 163/85; PULSE 90; RESP 18; TEMP 36.4; O2SAT 100
[2019-01-07 20:53] VITALS: BP 146/90; PULSE 81; RESP 18; O2SAT 98
--- NOTE | 2019-01-07 20:53 | ED_ITS ---
HPI - Headache General Chief Complaint: Headache Stated Complaint: feels shakey after biopsy earlier Time Seen by Provider: 01/07/19 20:11 Mode of arrival: Ambulatory Limitations: no limitations History of Present Illness HPI Narrative: Patient is a 68-year-old female who presents with a variety of complaints. She actually had a thyroid nodule biopsy done today. She says that she has been feeling little dizzy and lightheaded whenever she stands up and walks she also has some chest discomfort which she has been burping a lot. She denies any real chest pain no shortness of breath. She feels a little nauseous she has not vomited. She has been ambulatory in the ED without any difficulty. She denies any blurry vision no numbness tingling or weakness in her extremities. MD Complaint: headache Onset description: gradual Severity: mild Related Data Home Medications Medication Instructions Recorded Confirmed aspirin 81 mg PO QDAY #0 01/20/17 09/26/18 calcium carbonate-vitamin D3 1 tab PO BID #0 01/20/17 09/26/18 [Oyster Shell Calcium-Vit D3] lisinopril [Zestril] 30 mg PO DAILY #0 01/20/17 09/26/18 acetaminophen 650 mg PO Q4HP PRN 09/26/18 09/26/18 amlodipine 5 mg PO DAILY 09/26/18 09/26/18 atorvastatin 20 mg PO DAILY 09/26/18 09/26/18 famotidine 20 mg PO BID 09/26/18 09/26/18 fluticasone propionate 1 spray INTRANASAL DAILY PRN 09/26/18 09/26/18 ibuprofen 400 mg PO Q6HP PRN 09/26/18 09/26/18 olopatadine [Patanol] 1 drp OPHTHALMIC (EYE) DIRECTED 09/26/18 09/26/18 Previous Rx's Medication Instructions Recorded cetirizine 10 mg PO DAILY PRN #4 tab 10/02/17 epinephrine [EpiPen 2-Damaso] 0.3 mg IM Q30M PRN #2 each 10/02/17 amlodipine 10 mg PO DAILY #20 tab 09/26/18 Allergies Allergy/AdvReac Type Severity Reaction Status Date / Time No Known Drug Allergies Allergy Verified 01/07/19 20:01 Review of Systems Review of Systems ROS Unobtainable: All systems reviewed & are unremarkable except as noted in HPI and below Constitutional Constitutional: Denies chills, Denies fever(s), Denies lethargy and Denies weakness ENT Ears, Nose, Mouth, and Throat: Reports dizziness Cardiovascular Cardiovascular: Reports chest pain, Denies dyspnea and Denies dyspnea on exerti on Respiratory Respiratory: Denies cough, Denies dyspnea, Denies dyspnea on exertion and Denies wheezing Gastrointestinal Gastrointestinal: Denies abdominal pain, Denies change in bowel habits, Denies diarrhea, Denies nausea and Denies vomiting Genitourinary Genitourinary: Denies hematuria, Denies flank pain, Denies urinary incontinence and Denies urinary urgency Musculoskeletal Musculoskeletal: Denies back pain, Denies muscle weakness, Denies numbness and Denies tingling Integumentary/Breasts Skin/Breast: Denies pruritus, Denies erythema, Denies rash and Denies wounds Neurologic Neurologic: Reports dizziness, Denies numbness, Denies tingling and Denies weakness Allergic/Immunologic Allergic/Immunologic: Denies wheezing Patient History Medical History Dyslipidemia (Chronic) Hypertension (Chronic) Surgical History Hx of appendectomy (Chronic) Social History marital status: Smoking Status: Never smoker alcohol intake: never substance use type: does not use alcohol intake frequency: 0-2 drinks per day Substance Use Type: does not use Exam Initial Vital Signs Initial Vital Signs: Vital Signs Temperature 97.5 F L 01/07/19 19:59 Pulse Rate 90 01/07/19 19:59 Respiratory Rate 18 01/07/19 19:59 Blood Pressure 163/85 H 01/07/19 19:59 Pulse Oximetry 100 01/07/19 19:59 GENERAL: Well-appearing, well-nourished and in no acute distress. HEENT: Head atraumatic,EOMI, pupils reactive, face symmetric, moist mucous membranes, biopsy site noted on neck no erythema and swelling no drainage CARDIOVASCULAR: Regular rate and rhythm without murmurs, rubs or gallops. RESPIRATORY: Breath sounds equal bilaterally, no wheezes rales or rhonchi. ABDOMEN: Soft, nontender. Normoactive bowel sounds all 4 quadrants. No guarding or rebound. EXTREMITIES: Normal range of motion, no clubbing or edema. Neurovascularly intact NEUROLOGICAL: Alert and oriented x4.Normal gait and speech. Cranial nerves II through XII grossly intact. Good [id number], good [id number], strength equal bilaterally, no dysarthria or aphasia, sensation in tact to soft touch bilaterally, no visual changes, no facial droop SKIN: Warm, dry, no laceration, no petechiae, no rashes or lesions. Scores HEART Score Heart Score history: Slightly Suspicious Heart Score EKG: Normal Heart Score Age: > or = 65 years old Heart Score risk factors: 1-2 risk factors Heart Score troponin: < or = to normal limit Heart Score Total: 3 NIH Stroke Scale Level of Conciousness: Alert, keenly responsive Ask month/age: Answers both questions correctly. Open/close eyes, close hand: Performs both tasks correctly Best gaze horizontal: Normal Visual becker: No visual loss Facial palsy: Normal symetrical movement Left arm drift: No drift for full 10 sec Right arm drift: No drift for full 10 sec Left leg drift: No drift for full 10 sec Right leg drift: No drift for full 10 sec Limb ataxia: Absent Sensory on face/arms/legs: Normal, no sensory loss Best language: No aphasia, normal Dysarthria: Normal Extinction or inattention: No abnormality Total NIH Stroke scale score: 0 Course Orders Ordered: ED Orders 01/07/19 20:37 EKG-12 Lead Stat 01/07/19 21:05 Complete Blood Count AUTO DIFF Stat Comprehensive Metabolic Panel Stat Troponin & CK Cardiac Panel Stat 01/07/19 22:22 EKG-12 Lead Stat 01/07/19 23:05 Troponin I Stat Discontinued Medications Sodium Chloride (Normal Saline 0.9%) 1,000 mls @ 1,000 mls/hr IV BOLUS ONE Stop: 01/07/19 22:00 Last Infusion: 01/07/19 22:22 Dose: 0 mls/hr Documented by: Admin: 01/07/19 21:13 Dose: 1,000 mls/hr Documented by: ROMAN Ondansetron HCl (Zofran) 4 mg IV NOW ONE Stop: 01/07/19 21:02 Last Admin: 01/07/19 21:13 Dose: 4 mg Documented by: ROMAN Pantoprazole Sodium (Protonix) 40 mg IV NOW ONE Stop: 01/07/19 22:23 Last Admin: 01/07/19 22:39 Dose: 40 mg Documented by: ROMAN Vital Signs Vital signs: Vital Signs - 8 hr 01/07/19 19:59 01/07/19 20:53 01/07/19 21:47 Temperature 97.5 F L Pulse Rate 90 81 85 Respiratory Rate 18 18 25 H Blood Pressure 163/85 H Blood Pressure [Right Arm] 146/90 H 147/75 H Pulse Oximetry 100 98 99 01/07/19 23:24 01/07/19 23:54 Temperature Pulse Rate 68 70 Respiratory Rate 18 16 Blood Pressure 115/73 Blood Pressure [Right Arm] 105/72 Pulse Oximetry 100 99 MDM - Headache Lab Data Attestation: I reviewed the patient's lab results. Result diagrams: 01/07/19 21:05 01/07/19 21:05 Labs: Lab Results 01/07/19 01/07/19 01/07/19 Range/Units 21:05 21:05 23:05 WBC 7.7 (4.5-11.0) X10^3/uL RBC 4.12 (4.0-5.2) X10^6/uL Hgb 13.0 (12.0-16.0) g/dL Hct 38.7 (36-46) % MCV 93.8 (80-100) fL MCH 31.5 (26-34) PG MCHC 33.5 (30-36) % RDW 12.4 (11.6-14.8) % Plt Count 219 (150-400) X10^3/uL Neut % (Auto) 65.6 (50-75) % Lymph % (Auto) 24.3 L (25-40) % [place] % (Auto) 7.6 (3-14) % Eos % (Auto) 1.6 L (2-4) % Baso % (Auto) 0.9 (0-2) % Neut # (Auto) 5100 (8614-2083) /uL Lymph # (Auto) 1900 (5046-4621) /uL [place] # (Auto) 600 (0-900) /uL Eos # (Auto) 100 (0-450) /uL Baso # (Auto) 100 (0-100) /uL Sodium 137 (137-145) mmol/L Potassium 4.3 (3.4-5.1) mmol/L Chloride 101 (98-107) mmol/L Carbon Dioxide 27 (22-32) mmol/L BUN 17 (7-17) mg/dL Creatinine 0.80 (0.52-1.04) mg/dL Estimated GFR > 60.0 (>60) mL/min BUN/Creatinine Ratio 21.3 (6-22) Glucose 115 H (80-110) mg/dL Calcium 9.1 (8.4-10.2) mg/dL Total Bilirubin 0.5 (0.2-1.3) mg/dL AST 29 (14-36) IU/L ALT 15 (9-52) IU/L Alkaline Phosphatase 106 (38-126) U/L Total Creatine Kinase 144 H (30-135) U/L CK-MB (CK-2) 1.54 (<2.37) ng/mL CK-MB (CK-2) Rel Index 1.1 L (1.5-5.0) % Troponin I < 0.012 < 0.012 (0.01-0.034) ng/mL Total Protein 7.8 (6.3-8.2) g/dL Albumin 4.5 (3.5-5.0) g/dL Globulin 3.3 (1.7-4.1) g/dL Albumin/Globulin Ratio 1.4 (1.0-2.8) ECG Data Attestation: I personally reviewed and interpreted this ECG as follows: Prior ECG tracings: available for review Interpretation: EKG 1.: Normal sinus rhythm rate 73 p.r. interval [address] elevations depressions or T-wave inversions similar to previous EKG. 1st degree AV block unchanged from previous EKGs EKG 2.: Normal sinus rhythm rate 66 p.r. interval 239 no changes from prior MDM Narrative Medical decision making narrative: Patient was given Protonix and normal saline overall she is feeling much better. She does have some anxiety with this as well. She has been ambulatory in the ED without significant dizziness. She says the dizziness improved with normal saline. She has no significant swelling of her neck of redness or any sign of complication from the biopsy earlier today. Discharge Plan Departure Patient Disposition: Home Clinical Impression: Atypical chest pain Discharge Date/Time: 01/07/19 23:54 Instructions: DI for Atypical Chest Pain Activity Restrictions/Additional Instructions: *You have been diagnosed with atypical chest *What to do: At this time blood work is reassuring. I recommend of going home and getting some sleep increasing fluid intake. You may require further workup of your heart if your continuing to have discomfort please discuss this with her PCP *Continue to take medications as directed *Follow up with your primary care provider in 2-3 days *Return to ER if you should have worsening chest pain, increased dizziness, weakness in extremities facial drooping confusion shortness of breath with activity or any new, worsening or concerning symptoms Prescriptions: No Action aspirin 81 MG tablet,delayed release (DR/EC) 81 mg PO QDAY Qty: 0 RF: 0 lisinopril [Zestril] 20 MG tablet 30 mg PO DAILY Qty: 0 RF: 0 calcium carbonate-vitamin D3 [Oyster Shell Calcium-Vit D3] 500 MG/200 IU tablet 1 tab PO BID Qty: 0 RF: 0 cetirizine 10 mg tablet 10 mg PO DAILY PRN (Reason: allergy symptoms) Qty: 4 RF: 0 epinephrine [EpiPen 2-Damaso] 0.3 mg/0.3 mL auto-injector 0.3 mg IM Q30M PRN (Reason: anaphylaxis) Qty: 2 RF: 0 atorvastatin 20 mg tablet 20 mg PO DAILY RF: 0 amlodipine 5 mg tablet 5 mg PO DAILY RF: 0 famotidine 20 mg tablet 20 mg PO BID RF: 0 olopatadine [Patanol] 0.1 % drops 1 drp ophthalmic (eye) DIRECTED RF: 0 acetaminophen 325 MG tablet 650 mg PO Q4HP PRN (Reason: pain) RF: 0 fluticasone propionate 50 mcg/actuation spray,suspension 1 spray intranasal DAILY PRN (Reason: Allergy Symptoms) RF: 0 ibuprofen 400 MG tablet 400 mg PO Q6HP PRN (Reason: pain) RF: 0 amlodipine 10 mg tablet 10 mg PO DAILY Qty: 20 RF: 0 Referrals: Chevy Kapadia [Primary Care Provider] -
[2019-01-07] MEDS: ONDANSETRON 4 MG/2 ML INJ IV (21:13)
[2019-01-07] MEDS: SODIUM CHLORIDE 0.9% 1,000 ML 1000 ML IV (21:13)
[2019-01-07 21:20] LABS: Add Manual Diff / Slide Review NO; Basophils Absolute Auto 100 /uL (0-100); Basophils Percent Auto 0.9 % (0-2); Eosinophils Absolute Auto 100 /uL (0-450); Eosinophils Percent Auto 1.6 % (2-4); Hematocrit 38.7 % (36-46); Lymphocytes Absolute Auto 1900 /uL (1100-4500); Lymphocytes Percent Auto 24.3 % (25-40); Mean Corpuscular HGB Conc 33.5 % (30-36); Mean Corpuscular Hemoglobin 31.5 PG (26-34); Mean Corpuscular Volume 93.8 fL (80-100); Monocytes Absolute Auto 600 /uL (0-900); Monocytes Percent Auto 7.6 % (3-14); Neutrophils Absolute Auto 5100 /uL (1500-7000); Neutrophils Percent Auto 65.6 % (50-75); Platelet Count 219 X10^3/uL (150-400); Red Blood Cell Count 4.12 X10^6/uL (4.0-5.2); Red Cell Distribution Width 12.4 % (11.6-14.8); White Blood Cell Count 7.7 X10^3/uL (4.5-11.0)
[2019-01-07 21:28] LABS: Alanine Aminotransferase 15 IU/L (9-52); Albumin 4.5 g/dL (3.5-5.0); Albumin Globulin Ratio 1.4 (1.0-2.8); Alkaline Phosphatase 106 U/L (38-126); Aspartate Aminotransferase 29 IU/L (14-36); BUN Creatinine Ratio 21.3 (6-22); Bilirubin Total 0.5 mg/dL (0.2-1.3); Blood Urea Nitrogen 17 mg/dL (7-17); Calcium 9.1 mg/dL (8.4-10.2); Carbon Dioxide 27 mmol/L (22-32); Chloride 101 mmol/L (98-107); Creatine Kinase 144 U/L (30-135); Estimated Glomerular Filt Rate > 60.0 mL/min (>60); Globulin 3.3 g/dL (1.7-4.1); Glucose 115 mg/dL (80-110); HEMOLYSIS 27 (0-50); Potassium 4.3 mmol/L (3.4-5.1); Sodium 137 mmol/L (137-145); Total Protein 7.8 g/dL (6.3-8.2)
[2019-01-07 21:40] LABS: Troponin I < 0.012 ng/mL (0.01-0.034)
[2019-01-07 21:44] LABS: CKMB % Relative Index 1.1 % (1.5-5.0); Creatine Kinase MB 1.54 ng/mL (<2.37)
[2019-01-07 21:47] VITALS: BP 147/75; PULSE 85; RESP 25; O2SAT 99
[2019-01-07] MEDS: PANTOPRAZOLE 40 MG VIAL IV (22:39)
[2019-01-07 23:24] VITALS: BP 105/72; PULSE 68; RESP 18; O2SAT 100
[2019-01-07 23:36] LABS: Troponin I < 0.012 ng/mL (0.01-0.034)
[2019-01-07 23:54] VITALS: BP 115/73; PULSE 70; RESP 16; O2SAT 99
== END 2019-01-07 23:54 | disposition home or self-care (01) ==
PROVIDERS: Emergency Provider Emergency Medicine; PCP Family Medicine
DX: R07.9 Chest pain, unspecified (principal); R42 Dizziness and giddiness; I10 Essential (primary) hypertension; F41.9 Anxiety disorder, unspecified; E04.1 Nontoxic single thyroid nodule
CPT/HCPCS: 10005; 36415; 80053; 82550; 82553; 84484; 85025; 93005; 93010; 96361; 96374; 96375; 99283; 99284; C9113; J2405

== ENCOUNTER → 2019-01-27 11:02 | Outpatient (CLI) | payer MEDICARE, OTHER, SELFPAY ==
--- NOTE | 2019-01-27 | DI.RAD.S_ITS ---
PROCEDURE: XR LUMBAR SPINE 2-3V INDICATIONS: LUMBAR RADICULPOTHY TECHNIQUE: 3 views of the lumbar spine were acquired. COMPARISON: None. FINDINGS: Bones: 5 [id number] vertebrae are present. There is normal bony alignment. No vertebral body compression fractures. No suspicious bony lesions. Soft tissues: Overlying bowel gas pattern is normal. No suspicious soft tissue calcifications. IMPRESSION: Mild degenerative disc disease L5-S1, mild to moderate facet osteoarthritis at L5-S1. No subluxation or evidence of compression fracture. Dictated by: Rajan Tobias M.D. on 01/27/2019 at 12:34 Approved by: Rajan Tobias M.D. on 01/27/2019 at 12:34
== END ==
PROVIDERS: PCP Family Medicine; Visit Provider Family Medicine
DX: M47.27 Other spondylosis with radiculopathy, lumbosacral region (principal); M51.17 Intervertebral disc disorders with radiculopathy, lumbosacral region
CPT/HCPCS: 72100

== ENCOUNTER → 2019-04-11 09:40 | Outpatient (CLI) | payer MEDICARE, OTHER, SELFPAY ==
[2019-04-11 10:44] LABS: Add Manual Diff / Slide Review NO; Basophils Absolute Auto 100 /uL (0-100); Basophils Percent Auto 1.1 % (0-2); Eosinophils Absolute Auto 100 /uL (0-450); Hematocrit 38.6 % (36-46); Hemoglobin 12.9 g/dL (12.0-16.0); Lymphocytes Absolute Auto 1500 /uL (1100-4500); Lymphocytes Percent Auto 29.4 % (25-40); Mean Corpuscular HGB Conc 33.4 % (30-36); Mean Corpuscular Hemoglobin 31.3 PG (26-34); Mean Corpuscular Volume 93.8 fL (80-100); Monocytes Absolute Auto 400 /uL (0-900); Monocytes Percent Auto 7.7 % (3-14); Neutrophils Absolute Auto 2900 /uL (1500-7000); Neutrophils Percent Auto 58.8 % (50-75); Platelet Count 247 X10^3/uL (150-400); Red Blood Cell Count 4.11 X10^6/uL (4.0-5.2); Red Cell Distribution Width 13.1 % (11.6-14.8); White Blood Cell Count 4.9 X10^3/uL (4.5-11.0)
[2019-04-11 11:37] LABS: Thyroid Stimulating Hormone 1.44 uIU/mL (0.47-4.68)
[2019-04-11 11:44] LABS: Alanine Aminotransferase 16 IU/L (<35); Albumin 4.3 g/dL (3.5-5.0); Albumin Globulin Ratio 1.4 (1.0-2.8); Alkaline Phosphatase 76 U/L (38-126); Aspartate Aminotransferase 25 IU/L (14-36); BUN Creatinine Ratio 21.3 (6-22); Bilirubin Total 0.5 mg/dL (0.2-1.3); Blood Urea Nitrogen 17 mg/dL (7-17); Calcium 9.4 mg/dL (8.4-10.2); Carbon Dioxide 26 mmol/L (22-32); Chloride 102 mmol/L (98-107); Cholesterol 163 mg/dL (140-199); Estimated Glomerular Filt Rate > 60.0 mL/min (>60); Globulin 3.1 g/dL (1.7-4.1); Glucose 116 mg/dL (80-110); HDL Cholesterol 58 mg/dL (40-60); HEMOLYSIS < 15 (0-50); LDL Cholesterol Calculated 72 mg/dL (<100); Potassium 4.7 mmol/L (3.4-5.1); Sodium 139 mmol/L (137-145); Total Protein 7.4 g/dL (6.3-8.2); Triglycerides 167 mg/dL (35-150)
== END ==
PROVIDERS: PCP Family Medicine; Referring Provider Family Medicine; Visit Provider Family Medicine
DX: I10 Essential (primary) hypertension (principal); E78.5 Hyperlipidemia, unspecified; E04.1 Nontoxic single thyroid nodule
CPT/HCPCS: 36415; 80053; 80061; 84443; 85025

== ENCOUNTER → 2019-04-14 11:05 | Outpatient (CLI) | payer MEDICARE, OTHER, SELFPAY ==
--- NOTE | 2019-04-14 | DI.US.S_ITS ---
PROCEDURE: US THYROID INDICATIONS: NONTOXIC SINGLE THYROID NODULE TECHNIQUE: Real-time scanning was performed of the thyroid gland, with image documentation. COMPARISON: [facility], US, US FINE NEEDLE ASPIRATION, 01/07/2019, 9:51. [facility], US, US FINE NEEDLE ASPIRATION, 10/31/2018, 13:38. [facility], US, US THYROID, 10/16/2018, 10:45. FINDINGS: Right: 1.2 x 1.1 x 3.4 cm. Left: 1.7 x 1.3 x 3.6 cm. At the lower half of the left thyroid lobe 2 adjacent small nodules can again be seen, with the more superior representing a cystic structure measuring 6 x 5 x 5 mm, unchanged from the prior thyroid ultrasound 10/16/18. The larger nodule immediately below also has not significantly changed, measuring 1.8 x 1.4 x 1.1 cm. This is hypoechoic, smoothly marginated, predominantly solid, with several echogenic punctate foci as was previously the case.. Isthmus: 2 mm. IMPRESSION: Stable appearance, size, and morphology of the 2 left lower thyroid nodules one of which is very small and predominately cystic and the second of which has been previously biopsied under ultrasound guidance 10/31/18 and 01/07/19. Dictated by: Rajan Tobias M.D. on 04/14/2019 at 15:38 Approved by: Rajan Tobias M.D. on 04/14/2019 at 15:44
== END ==
PROVIDERS: PCP Family Medicine; Referring Provider Family Medicine; Visit Provider Family Medicine
DX: E04.2 Nontoxic multinodular goiter (principal)
CPT/HCPCS: 76536

== ENCOUNTER 2019-04-14 11:54 | Emergency (ER) | payer MEDICARE, OTHER, SELFPAY ==
[2019-04-14 13:08] VITALS: BP 134/93; PULSE 88; RESP 16; TEMP 37; O2SAT 98; BMI 20.9
[2019-04-14 15:07] VITALS: BP 166/99; PULSE 95; RESP 22; O2SAT 98
--- NOTE | 2019-04-14 15:09 | ED_ITS ---
HPI - General Adult General Chief complaint: Dizziness Stated complaint: pain in sides, dizziness, burping Time Seen by Provider: 04/14/19 13:42 Source: patient Mode of arrival: Ambulatory Limitations: no limitations History of Present Illness HPI narrative: 68-year-old female with a history of vertigo here for evaluation of bilateral upper chest pain and also left-sided chest pain. She also states she is getting ?dizzy ?when she stands up. She states that the dizziness is somewhat like her prior history of vertigo. The chest pain has been going on this morning since she woke up at 0600 hours. She states she has had periods of time where her chest pain is worse than others but she has had constant chest pain since 0600 hours this morning. Not worse with palpation or movement or breathing. Has not tried anything for the symptoms. Related Data Home Medications Medication Instructions Recorded Confirmed aspirin 81 mg PO QDAY #0 01/20/17 09/26/18 calcium carbonate-vitamin D3 1 tab PO BID #0 01/20/17 09/26/18 [Oyster Shell Calcium-Vit D3] acetaminophen 650 mg PO Q4HP PRN 09/26/18 09/26/18 amlodipine 5 mg PO DAILY 09/26/18 04/14/19 atorvastatin 20 mg PO DAILY 09/26/18 04/14/19 famotidine 20 mg PO BID 09/26/18 09/26/18 fluticasone propionate 1 spray INTRANASAL DAILY PRN 09/26/18 09/26/18 ibuprofen 400 mg PO Q6HP PRN 09/26/18 09/26/18 olopatadine [Patanol] 1 drp OPHTHALMIC (EYE) DIRECTED 09/26/18 04/14/19 lisinopril 40 mg PO DAILY 04/14/19 04/14/19 Previous Rx's Medication Instructions Recorded cetirizine 10 mg PO DAILY PRN #4 tab 10/02/17 epinephrine [EpiPen 2-Damaso] 0.3 mg IM Q30M PRN #2 each 10/02/17 amlodipine 10 mg PO DAILY #20 tab 09/26/18 Allergies Allergy/AdvReac Type Severity Reaction Status Date / Time No Known Drug Allergies Allergy Verified 04/14/19 13:12 Review of Systems Constitutional Constitutional: Denies fever(s) and Denies headache(s) ENT Ears, Nose, Mouth, and Throat: Denies headache(s) Cardiovascular Cardiovascular: Reports chest pain, Denies syncope, Denies rapid heart rate, Denies edema, Denies palpitations and Denies dyspnea Respiratory Respiratory: Denies cough and Denies dyspnea Gastrointestinal Gastrointestinal: Denies abdominal pain, Denies nausea and Denies vomiting Genitourinary Genitourinary: Denies dysuria Musculoskeletal Musculoskeletal: Denies myalgias and Denies arthralgias Integumentary/Breasts Skin/Breast: Denies lesions and Denies rash Neurologic Neurologic: Denies behavioral changes, Denies syncope and Denies headache(s) Psychiatric Psychiatric: Denies behavioral changes Endocrine Endocrine: Denies palpitations Hematologic/Lymphatic Hematologic/Lymphatic: Denies easy bleeding and Denies easy bruising Patient History Medical History Dyslipidemia (Chronic) Hypertension (Chronic) Social History marital status: Smoking Status: Never smoker alcohol intake: never substance use type: does not use Smoking Status: Never smoker alcohol intake frequency: 0-2 drinks per day Substance Use Type: does not use Exam Initial Vital Signs Initial Vital Signs: Vital Signs Temperature 98.6 F 04/14/19 13:08 Pulse Rate 88 04/14/19 13:08 Respiratory Rate 16 04/14/19 13:08 Blood Pressure 134/93 H 04/14/19 13:08 Pulse Oximetry 98 04/14/19 13:08 Const General: cooperative, comfortable, well developed and well groomed Limitations: mental status not altered HENIA Head: normal to inspection and normocephalic Resp Effort & Inspection: normal respiratory effort Auscultation: clear to auscultation bilaterally Cardio Rate: regular rate Rhythm: regular rhythm GI Inspection: non-distended Palpation: soft, No firm and No tender Skin Lesions: no lesions Rashes: no rashes Neuro General: alert, awake and oriented x3 Cognition: normal cognition Speech: speech normal Extrem General: normal to inspection and capillary refill normal Psych Appearance: grossly normal and well kempt Scores GCS Monique coma scale eye opening: Spontaneous [place] coma scale verbal response: Orientated [place] coma scale motor response: Obey commands [place] coma scale total score: 15 HEART Score Heart Score history: Slightly Suspicious Heart Score EKG: Normal Heart Score Age: > or = 65 years old Heart Score risk factors: 1-2 risk factors Heart Score troponin: < or = to normal limit Heart Score Total: 3 Course Orders Ordered: ED Orders 04/14/19 13:43 EKG-12 Lead Stat 04/14/19 15:10 XR chest 1V Stat 04/14/19 16:02 Basic Metabolic Panel Stat Complete Blood Count AUTO DIFF Stat Troponin I Stat Vital Signs Vital signs: Vital Signs - 8 hr 04/14/19 13:08 04/14/19 15:07 04/14/19 15:39 Temperature 98.6 F Pulse Rate 88 95 H 87 Respiratory Rate 16 22 16 Blood Pressure 134/93 H Blood Pressure [Left Arm] 166/99 H 123/85 Pulse Oximetry 98 98 97 04/14/19 16:26 Temperature Pulse Rate 91 H Respiratory Rate 18 Blood Pressure Blood Pressure [Left Arm] 127/81 Pulse Oximetry 100 Medical Decision Making Lab Data Lab results reviewed: Yes I reviewed the patient's lab results. Result diagrams: 04/14/19 16:02 04/14/19 16:02 Labs: Lab Results 04/14/19 04/14/19 Range/Units 16:02 16:02 WBC 6.4 (4.5-11.0) X10^3/uL RBC 4.17 (4.0-5.2) X10^6/uL Hgb 13.0 (12.0-16.0) g/dL Hct 38.3 (36-46) % MCV 92.0 (80-100) fL MCH 31.3 (26-34) PG MCHC 34.0 (30-36) % RDW 12.8 (11.6-14.8) % Plt Count 249 (150-400) X10^3/uL Neut % (Auto) 68.9 (50-75) % Lymph % (Auto) 23.5 L (25-40) % [place] % (Auto) 6.0 (3-14) % Eos % (Auto) 0.9 L (2-4) % Baso % (Auto) 0.7 (0-2) % Neut # (Auto) 4400 (3479-2654) /uL Lymph # (Auto) 1500 (2546-3219) /uL [place] # (Auto) 400 (0-900) /uL Eos # (Auto) 100 (0-450) /uL Baso # (Auto) 0 (0-100) /uL Sodium 139 (137-145) mmol/L Potassium 4.5 (3.4-5.1) mmol/L Chloride 104 (98-107) mmol/L Carbon Dioxide 25 (22-32) mmol/L BUN 21 H (7-17) mg/dL Creatinine 0.70 (0.52-1.04) mg/dL Estimated GFR > 60.0 (>60) mL/min BUN/Creatinine Ratio 30.0 H (6-22) Glucose 106 (80-110) mg/dL Calcium 9.5 (8.4-10.2) mg/dL Troponin I < 0.012 (0.01-0.034) ng/mL Imaging Data Chest x-ray: Radiologist's Impression: [address] [address] XRay Report Signed Patient: Wen Marsh RMR#: [id number] : 1950Acct:[id number] Age/Sex: 68 / FDate of Service: 04/14/19 Loc: ED Accession Number: [id number] Procedure: XR chest 1V Ordering Provider: Babak Gray D.O. PROCEDURE: XR CHEST 1V INDICATIONS: Chest pain TECHNIQUE: One view of the chest was acquired. COMPARISON: [facility], CT, CT ANGIO CHEST ABDOMEN PELVIS, 10/08/2018, 10:04. [facility], CR, XR CHEST 1V, 09/26/2018, 15:28. FINDINGS: Surgical changes and devices: None. Lungs and pleura: Lungs are clear. No pleural effusions or pneumothorax. Mediastinum: The cardiac contours are within normal limits. The aorta dem onstrates calcification and prominent tortuosity. Bones and chest wall: Age-appropriate bony degenerative changes are seen. No suspicious bony lesions. Overlying soft tissues appear unremarkable. IMPRESSION: Unremarkable portable chest, without an acute abnormality seen. Prominent tortuosity of the aorta can again be seen. Dictated by: Canelo Antonio M.D. on 04/14/2019 at 15:32 Approved by: Canelo Antonio M.D. on 04/14/2019 at 15:33 ECG Data Attestation: I personally reviewed and interpreted this ECG as follows: Prior ECG tracings: not available for review Interpretation: Sinus rhythm Ventricular rate 93 First degree AV block as needed oval [address] T wave changes MDM Narrative Medical decision making narrative: Low risk heart score. Negative troponin greater than 6 hours after constant symptoms. Her vertigo according to her report is like her prior history of this. She does not take her meclizine. Hold on further workup for now. Have her follow up with her primary doctor to discuss further workup. She expressed understanding agreement plan. Discharge Plan Departure Patient Disposition: Home Clinical Impression: Atypical chest pain, Vertigo Discharge Date/Time: 04/14/19 17:18 Instructions: DI for Vertigo, DI for Atypical Chest Pain Activity Restrictions/Additional Instructions: Recommend that tomorrow you contact your primary provider to discuss the indications for a stress test and also for further workup of your vertigo. Ret urn to the emergency department for any new or worsening symptoms Prescriptions: No Action aspirin 81 MG tablet,delayed release (DR/EC) 81 mg PO QDAY Qty: 0 RF: 0 calcium carbonate-vitamin D3 [Oyster Shell Calcium-Vit D3] 500 MG/200 IU tablet 1 tab PO BID Qty: 0 RF: 0 cetirizine 10 mg tablet 10 mg PO DAILY PRN (Reason: allergy symptoms) Qty: 4 RF: 0 epinephrine [EpiPen 2-Damaso] 0.3 mg/0.3 mL auto-injector 0.3 mg IM Q30M PRN (Reason: anaphylaxis) Qty: 2 RF: 0 lisinopril 40 mg tablet 40 mg PO DAILY RF: 0 atorvastatin 20 mg tablet 20 mg PO DAILY RF: 0 amlodipine 5 mg tablet 5 mg PO DAILY RF: 0 famotidine 20 mg tablet 20 mg PO BID RF: 0 olopatadine [Patanol] 0.1 % drops 1 drp ophthalmic (eye) DIRECTED RF: 0 acetaminophen 325 MG tablet 650 mg PO Q4HP PRN (Reason: pain) RF: 0 fluticasone propionate 50 mcg/actuation spray,suspension 1 spray intranasal DAILY PRN (Reason: Allergy Symptoms) RF: 0 ibuprofen 400 MG tablet 400 mg PO Q6HP PRN (Reason: pain) RF: 0 amlodipine 10 mg tablet 10 mg PO DAILY Qty: 20 RF: 0 Referrals: Chevy Kapadia [Primary Care Provider] -
[2019-04-14 15:39] VITALS: BP 123/85; PULSE 87; RESP 16; O2SAT 97
[2019-04-14 16:10] LABS: Add Manual Diff / Slide Review NO; Basophils Absolute Auto 0 /uL (0-100); Basophils Percent Auto 0.7 % (0-2); Eosinophils Absolute Auto 100 /uL (0-450); Eosinophils Percent Auto 0.9 % (2-4); Hematocrit 38.3 % (36-46); Lymphocytes Absolute Auto 1500 /uL (1100-4500); Lymphocytes Percent Auto 23.5 % (25-40); Mean Corpuscular Hemoglobin 31.3 PG (26-34); Monocytes Absolute Auto 400 /uL (0-900); Neutrophils Absolute Auto 4400 /uL (1500-7000); Neutrophils Percent Auto 68.9 % (50-75); Platelet Count 249 X10^3/uL (150-400); Red Blood Cell Count 4.17 X10^6/uL (4.0-5.2); Red Cell Distribution Width 12.8 % (11.6-14.8); White Blood Cell Count 6.4 X10^3/uL (4.5-11.0)
[2019-04-14 16:25] LABS: Blood Urea Nitrogen 21 mg/dL (7-17); Calcium 9.5 mg/dL (8.4-10.2); Carbon Dioxide 25 mmol/L (22-32); Chloride 104 mmol/L (98-107); Estimated Glomerular Filt Rate > 60.0 mL/min (>60); Glucose 106 mg/dL (80-110); HEMOLYSIS 33 (0-50); Potassium 4.5 mmol/L (3.4-5.1); Sodium 139 mmol/L (137-145)
[2019-04-14 16:26] VITALS: BP 127/81; PULSE 91; RESP 18; O2SAT 100
[2019-04-14 16:36] LABS: Troponin I < 0.012 ng/mL (0.01-0.034)
== END 2019-04-14 17:18 | disposition home or self-care (01) ==
PROVIDERS: Emergency Provider Emergency Medicine; PCP Family Medicine
DX: R07.89 Other chest pain (principal); R42 Dizziness and giddiness; I44.0 Atrioventricular block, first degree; E04.2 Nontoxic multinodular goiter
CPT/HCPCS: 36415; 71045; 76536; 80048; 84484; 85025; 93005; 99284; 99285

== ENCOUNTER 2019-07-25 11:36 | Emergency (ER) | payer MEDICARE, OTHER, SELFPAY ==
[2019-07-25 11:48] VITALS: BP 147/68; PULSE 80; RESP 12; TEMP 35.9; O2SAT 100
--- NOTE | 2019-07-25 12:00 | DI.RAD.S_ITS ---
PROCEDURE: XR CHEST 1V INDICATIONS: chest pain TECHNIQUE: One view of the chest was acquired. COMPARISON: [facility], CR, XR CHEST 1V, 04/14/2019, 15:12. FINDINGS: Surgical changes and devices: None. Lungs and pleura: Minimal linear atelectasis versus scarring at the right lung base is identified. No focal pulmonary consolidation, effusion, or pneumothorax is evident. Mediastinum: Mediastinal contours appear normal. Heart size is mildly enlarged. There is aortic atherosclerosis. Bones and chest wall: No suspicious bony lesions. Overlying soft tissues appear unremarkable. IMPRESSION: 1. Cardiomegaly without overt heart failure. 2. No definite pneumonia. Dictated by: Ky Gilmore M.D. on 07/25/2019 at 12:10 Approved by: Ky Gilmore M.D. on 07/25/2019 at 12:10
[2019-07-25 12:10] LABS: Add Manual Diff / Slide Review NO; Basophils Absolute Auto 100 /uL (0-100); Eosinophils Absolute Auto 0 /uL (0-450); Eosinophils Percent Auto 0.3 % (2-4); Hematocrit 36.3 % (36-46); Hemoglobin 12.5 g/dL (12.0-16.0); Lymphocytes Absolute Auto 1600 /uL (1100-4500); Lymphocytes Percent Auto 20.6 % (25-40); Mean Corpuscular HGB Conc 34.4 % (30-36); Mean Corpuscular Hemoglobin 31.3 PG (26-34); Mean Corpuscular Volume 90.9 fL (80-100); Monocytes Absolute Auto 500 /uL (0-900); Monocytes Percent Auto 6.6 % (3-14); Neutrophils Absolute Auto 5700 /uL (1500-7000); Neutrophils Percent Auto 71.5 % (50-75); Platelet Count 269 X10^3/uL (150-400); Red Cell Distribution Width 12.7 % (11.6-14.8)
--- NOTE | 2019-07-25 12:10 | ED.CHESTPAIN ---
HPI - Chest Pain <ADELINA Harvey - Last Filed: 07/25/19 23:47> General Chief Complaint: Chest Pain Stated Complaint: chest pains and shortness of breath Time Seen by Provider: 07/25/19 12:06 Source: patient and family Mode of arrival: Wheelchair Limitations: no limitations History of Present Illness HPI narrative: This is a 68-year-old female, nonsmoker, with medical history of hypertension, hyperlipidemia, history of appendectomy and bowel obstruction presents to ED with her spouse with chief complain of excessive belching, intermittent mid chest discomfort with nausea. Patient denies short of breath, dizziness, feeling sweaty, fever. Reports had toast this morning as her last meal. Last bowel movement was this a.m. which was normal without blood or diarrhea. She reports normal appetite and mild occasional chills. Patient also reports urinary frequency but denies dysuria, hematuria, urgency. Patient did not mention that she was evaluated in [facility] this morning at 0430 with same symptoms but triage nurse received NOA (ED information exchange) report of the patient's visit and the medical record was requested and patient has previous visits to [facility] ED with similar chief complaint. According to [facility] record, patient had similar episodes over past 1-2 months with 6 year visits with normal EKG, chest x-ray, left, troponin on all the occasions including 2 days ago. During today's visit to [facility], EKG was obtained without ST elevation, no labs were done, was treated with GI cocktail and discharged to home with anti acid medication after her symptoms improved. Related Data Home Medications Medication Instructions Recorded Confirmed aspirin 162 mg PO QDAY #0 01/20/17 07/28/19 calcium carbonate-vitamin D3 1 tab PO BID #0 01/20/17 07/28/19 [Oyster Shell Calcium-Vit D3] acetaminophen 650 mg PO Q4HP PRN 09/26/18 07/28/19 amlodipine 5 mg PO DAILY 09/26/18 07/28/19 atorvastatin 20 mg PO DAILY 09/26/18 07/28/19 famotidine 20 mg PO BID 09/26/18 07/28/19 fluticasone propionate 1 spray INTRANASAL DAILY PRN 09/26/18 07/28/19 ibuprofen 400 mg PO Q6HP PRN 09/26/18 07/28/19 olopatadine [Patanol] 1 drp OPHTHALMIC (EYE) DIRECTED 09/26/18 07/28/19 lisinopril 40 mg PO DAILY 04/14/19 07/28/19 calcium carbonate [Tums] 200 mg PO QID 07/28/19 07/28/19 Previous Rx's Medication Instructions Recorded epinephrine [EpiPen 2-Damaso] 0.3 mg IM Q30M PRN #2 each 10/02/17 nitrofurantoin macrocrystal 100 mg PO BID 5 Days #10 cap 07/27/19 Allergies Allergy/AdvReac Type Severity Reaction Status Date / Time No Known Drug Allergies Allergy Verified 04/14/19 13:12 Review of Systems <ADELINA Harvey - Last Filed: 07/25/19 23:47> Review of Systems Narrative: General: Denies fever, chills, fatigue, malaise, sweats. HEENT: Denies sinus pain, ear pain, sore throat, difficulty swallowing, dizziness. Respiratory: Denies dyspnea, cough, wheezing, hemoptysis, sputum. Cardiovascular: See HPI Gastrointestinal: See HPI : Denies dysuria, (+) frequency, incontinence, hematuria, urinary retention. Musculoskeletal: Denies weakness, joint pain or bony pain. Skin: Denies rash, skin lesions, or other. Neurologic: Denies weakness, headache, numbness, change in speech, confusion, seizures, incoordination. Psychiatric: No concerning psychosocial issues. 12-point review of systems is negative except for those stated above. Patient History <ADELINA Harvey - Last Filed: 07/25/19 23:47> Medical History Dyslipidemia (Chronic) Hypertension (Chronic) Surgical History History of cataract surgery (Acute) Hx of appendectomy (Chronic) Social History marital status: household members: spouse Smoking Status: Never smoker alcohol intake: never substance use type: does not use Smoking Status: Never smoker alcohol intake frequency: 0-2 drinks per day Substance Use Type: does not use Exam <Bello ADELINA Dotson - Last Filed: 07/25/19 23:47> Narrative Exam Narrative: GEN: Alert, oriented x 3, thin appearing and in no acute distress. Frequent burping without vomiting Head: Normal cephalic, atraumatic. No scalp or temporal tenderness, palpable mass or rash. EYES: Pupils are equal, round, and reactive to light and accommodation. Extraocular muscles are intact bilaterally. There is no subconjunctival hemorrhage, exudate and sclera non-icteric. ENT: Hearing grossly intact. Nose without bleeding, purulent discharge or deviation. Facial sinuses nontender to palpate. Mucous membrane moist, no mucosal lesion. Throat without erythema, tonsillar hypertrophy or exudate. Uvula in midline, airway patent. Neck: Trachea in midline. No JVD, non-tender without lymphadenopathy. No masses or thyroid megaly. Supple, non-tender and no meningeal signs. CARDIAC: Normal regular rate and rhythm without murmurs, gallops, or rubs. No chest wall tenderness. No peripheral edema, cyanosis or pallor. Capillary refill is less than 2 seconds. RESPIRATORY: Lungs are clear to auscultate bilaterally. No cough, wheezes, rales, or rhonchi. No stridor, respiratory distress, increase work of breathing, or accessary muscle used. ABD: Abdomen soft, nontender and non-distended. No guarding or rebound tenderness to palpate. Bowel sounds are normal in all 4 quadrants. There is no palpable masses or organomegaly. EXT: Full painless ROM of all extremities with no loss of sensation, strength, effusion or edema. SKIN: Warm, dry, normal color for patient. No erythema, lesions or rash over visible areas. BACK: Nontender without deformity or crepitance. No flank tenderness. NEUROLOGICAL: Alert and oriented to place, time and person. Sensation and motor function intact bilaterally. No facial droops, dysphasia. PSYCHIATRIC: Good judgement and reason, without hallucinations, abnormal affect or abnormal behaviors during the examination. Initial Vital Signs Initial Vital Signs: Vital Signs Temperature 96.6 F L 07/25/19 11:48 Pulse Rate 80 07/25/19 11:48 Respiratory Rate 12 07/25/19 11:48 Blood Pressure 147/68 H 07/25/19 11:48 Pulse Oximetry 100 07/25/19 11:48 <Vaishnavikyrie Amador DO - Last Filed: 07/28/19 11:38> Initial Vital Signs Initial Vital Signs: Vital Signs Temperature 96.6 F L 07/25/19 11:48 Pulse Rate 80 07/25/19 11:48 Respiratory Rate 12 07/25/19 11:48 Blood Pressure 147/68 H 07/25/19 11:48 Pulse Oximetry 100 07/25/19 11:48 Scores <[facility] - Last Filed: 07/25/19 23:47> GCS [place] coma scale eye opening: Spontaneous [place] coma scale verbal response: Orientated Monique coma scale motor response: Obey commands Monique coma scale total score: 15 HEART Score Heart Score history: Slightly Suspicious Heart Score EKG: Normal Heart Score Age: > or = 65 years old Heart Score risk factors: 1-2 risk factors Heart Score troponin: < or = to normal limit Heart Score Total: 3 Course <[facility] - Last Filed: 07/25/19 23:47> Orders Ordered: Discontinued Medications Al Hydrox/Mg Hydrox/Simethicone 20 ml/ Lidocaine HCl 15 ml 0 ml PO NOW ONE Stop: 07/25/19 13:16 Last Admin: 07/25/19 13:30 Dose: 30 ml Documented by: ALEJANDRA Diphenhydramine HCl (Benadryl) 12.5 mg IV NOW ONE Stop: 07/25/19 12:24 Last Admin: 07/25/19 12:43 Dose: 12.5 mg Documented by: ALEJANDRA Sodium Chloride (Normal Saline 0.9%) 500 mls @ 1,000 mls/hr IV BOLUS ONE Stop: 07/25/19 12:52 Last Infusion: 07/25/19 13:36 Dose: 0 mls/hr Documented by: Admin: 07/25/19 12:43 Dose: 1,000 mls/hr Documented by: ALEJANDRA Metoclopramide HCl (Reglan) 5 mg IV NOW ONE Stop: 07/25/19 12:24 Last Admin: 07/25/19 12:43 Dose: 5 mg Documented by: ALEJANDRA Pantoprazole Sodium (Protonix) 40 mg IV NOW ONE Stop: 07/25/19 14:05 Last Admin: 07/25/19 14:17 Dose: 40 mg Documented by: ALEJANDRA Vital Signs Vital signs: Vital Signs - 8 hr 07/25/19 14:15 07/25/19 15:47 Pulse Rate 85 83 Respiratory Rate 24 25 H Blood Pressure [Right Arm] 127/76 114/71 Pulse Oximetry 99 99 <Vaishnavi Amador DO - Last Filed: 07/28/19 11:38> Orders Ordered: Discontinued Medications Al Hydrox/Mg Hydrox/Simethicone 20 ml/ Lidocaine HCl 15 ml 0 ml PO NOW ONE Stop: 07/25/19 13:16 Last Admin: 07/25/19 13:30 Dose: 30 ml Documented by: ALEJANDRA Diphenhydramine HCl (Benadryl) 12.5 mg IV NOW ONE Stop: 07/25/19 12:24 Last Admin: 07/25/19 12:43 Dose: 12.5 mg Documented by: ALEJANDRA Sodium Chloride (Normal Saline 0.9%) 500 mls @ 1,000 mls/hr IV BOLUS ONE Stop: 07/25/19 12:52 Last Infusion: 07/25/19 13:36 Dose: 0 mls/hr Documented by: Admin: 07/25/19 12:43 Dose: 1,000 mls/hr Documented by: ALEJANDRA Metoclopramide HCl (Reglan) 5 mg IV NOW ONE Stop: 07/25/19 12:24 Last Admin: 07/25/19 12:43 Dose: 5 mg Documented by: ALEJANDRA Pantoprazole Sodium (Protonix) 40 mg IV NOW ONE Stop: 07/25/19 14:05 Last Admin: 07/25/19 14:17 Dose: 40 mg Documented by: ALEJANDRA Vital Signs Vital signs: Vital Signs - 8 hr 07/25/19 14:15 07/25/19 15:47 Pulse Rate 85 83 Respiratory Rate 24 25 H Blood Pressure [Right Arm] 127/76 114/71 Pulse Oximetry 99 99 MDM - Chest Pain <ADELINA Harvey - Last Filed: 07/25/19 23:47> Differential Diagnosis Differential diagnosis: Likely atypical chest pain and other (GERD, indigestion, urinary tract infection,) Medical Records Data Attestation: I reviewed the patient's medical records. Lab Data Attestation: I reviewed the patient's lab results. Result diagrams: 07/25/19 11:55 07/25/19 11:55 Labs: Lab Results 07/25/19 07/25/19 07/25/19 Range/Units 11:55 11:55 11:55 WBC 8.0 (4.5-11.0) X10^3/uL RBC 4.00 (4.0-5.2) X10^6/uL Hgb 12.5 (12.0-16.0) g/dL Hct 36.3 (36-46) % MCV 90.9 (80-100) fL MCH 31.3 (26-34) PG MCHC 34.4 (30-36) % RDW 12.7 (11.6-14.8) % Plt Count 269 (150-400) X10^3/uL Neut % (Auto) 71.5 (50-75) % Lymph % (Auto) 20.6 L (25-40) % [place] % (Auto) 6.6 (3-14) % Eos % (Auto) 0.3 L (2-4) % Baso % (Auto) 1.0 (0-2) % Neut # (Auto) 5700 (5658-5180) /uL Lymph # (Auto) 1600 (9778-0887) /uL [place] # (Auto) 500 (0-900) /uL Eos # (Auto) 0 (0-450) /uL Baso # (Auto) 100 (0-100) /uL PT 10.9 (10.1-12.7) SECONDS INR 1.0 (0.9-1.3) APTT 33 D (26.4-36.2) SECONDS D-Dimer (<230) ng/mL Sodium 124 L (137-145) mmol/L Potassium 4.4 (3.4-5.1) mmol/L Chloride 89 L (98-107) mmol/L Carbon Dioxide 22 (22-32) mmol/L BUN 13 (7-17) mg/dL Creatinine 0.64 (0.52-1.04) mg/dL Estimated GFR > 60.0 (>60) mL/min BUN/Creatinine Ratio 20.3 (6-22) Glucose 130 H (80-110) mg/dL Calcium 9.3 (8.4-10.2) mg/dL Total Bilirubin 0.6 (0.2-1.3) mg/dL AST 43 H (14-36) IU/L ALT 26 (<35) IU/L Alkaline Phosphatase 89 (38-126) U/L Total Creatine Kinase 302 H (30-135) U/L CK-MB (CK-2) 4.53 H (<2.37) ng/mL CK-MB (CK-2) Rel Index 1.5 (1.5-5.0) % Troponin I < 0.012 (0.01-0.034) ng/mL Total Protein 8.1 (6.3-8.2) g/dL Albumin 4.8 (3.5-5.0) g/dL Globulin 3.3 (1.7-4.1) g/dL Albumin/Globulin Ratio 1.5 (1.0-2.8) Lipase 269 (23-300) U/L Urine RBC (0-5/HPF) Urine WBC (0-5/HPF) Ur Squamous Epith Cells (0-5/HPF) Urine Bacteria (None) Ur Culture Indicated? 07/25/19 07/25/19 Range/Units 11:55 13:45 WBC (4.5-11.0) X10^3/uL RBC (4.0-5.2) X10^6/uL Hgb (12.0-16.0) g/dL Hct (36-46) % MCV (80-100) fL MCH (26-34) PG MCHC (30-36) % RDW (11.6-14.8) % Plt Count (150-400) X10^3/uL Neut % (Auto) (50-75) % Lymph % (Auto) (25-40) % [place] % (Auto) (3-14) % Eos % (Auto) (2-4) % Baso % (Auto) (0-2) % Neut # (Auto) (3056-6813) /uL Lymph # (Auto) (1865-7748) /uL [place] # (Auto) (0-900) /uL Eos # (Auto) (0-450) /uL Baso # (Auto) (0-100) /uL PT (10.1-12.7) SECONDS INR (0.9-1.3) APTT (26.4-36.2) SECONDS D-Dimer < 200 (<230) ng/mL Sodium (137-145) mmol/L Potassium (3.4-5.1) mmol/L Chloride (98-107) mmol/L Carbon Dioxide (22-32) mmol/L BUN (7-17) mg/dL Creatinine (0.52-1.04) mg/dL Estimated GFR (>60) mL/min BUN/Creatinine Ratio (6-22) Glucose (80-110) mg/dL Calcium (8.4-10.2) mg/dL Total Bilirubin (0.2-1.3) mg/dL AST (14-36) IU/L ALT (<35) IU/L Alkaline Phosphatase (38-126) U/L Total Creatine Kinase (30-135) U/L CK-MB (CK-2) (<2.37) ng/mL CK-MB (CK-2) Rel Index (1.5-5.0) % Troponin I (0.01-0.034) ng/mL Total Protein (6.3-8.2) g/dL Albumin (3.5-5.0) g/dL Globulin (1.7-4.1) g/dL Albumin/Globulin Ratio (1.0-2.8) Lipase (23-300) U/L Urine RBC 1-5/hpf (0-5/HPF) Urine WBC 5-10/hpf H (0-5/HPF) Ur Squamous Epith Cells 1-5 /hpf (0-5/HPF) Urine Bacteria Moderate (10-30) H (None) Ur Culture Indicated? Specimen cultured Urine Dip Bedside Urine Glucose Negative Bedside Urine Bilirubin - Negative Bedside Urine Ketone +/- 5 Urine Specific [place] 1.010 Bedside Urine Occult Blood + Bedside Urine pH 6.5 Bedside Urine Protein - Negative Bedside Urine Urobilinogen - Negative Bedside Urine Nitrite - Negative Bedside Urine Leukocytes + 70 Esterase Imaging Data Chest x-ray: Radiologist's Impression: [address] [address] XRay Report Signed Patient: Wen Marsh RMR#: [id number] : 1950Acct:[id number] Age/Sex: 68 / FDate of Service: 07/25/19 Loc: ED Accession Number: [id number] Procedure: XR chest 1V Ordering Provider: Vaishnavi Amador D.O. PROCEDURE: XR CHEST 1V INDICATIONS: chest pain TECHNIQUE: One view of the chest was acquired. COMPARISON: [facility], , XR CHEST 1V, 04/14/2019, 15:12. FINDINGS: Surgical changes and devices: None. Lungs and pleura: Minimal linear atelectasis versus scarring at the right lung base is identified. No focal pulmonary consolidation, effusion, or pneumothorax is evident. Mediastinum: Mediastinal contours appear normal. Heart size is mildly enlarged. There is aortic atherosclerosis. Bones and chest wall: No suspicious bony lesions. Overlying soft tissues appear unremarkable. IMPRESSION: 1. Cardiomegaly without overt heart failure. 2. No definite pneumonia. Dictated by: Ky Gilmore M.D. on 07/25/2019 at 12:10 Approved by: Ky Gilmore M.D. on 07/25/2019 at 12:10 Abdominal x-ray: Radiologist's Impression: [place] [address] XRay Report Signed Patient: Wen Marsh RMR#: [id number] : 1950Acct:[id number] Age/Sex: 68 / FDate of Service: 07/25/19 Loc: ED Accession Number: [id number] Procedure: XR abdomen min 2V Ordering Provider: Bello Dotson PROCEDURE: XR ABDOMEN MIN 2V INDICATIONS: belching, hx bowel obstruction TECHNIQUE: 2 views of the abdomen were acquired. COMPARISON: None. FINDINGS: Surgical changes and devices: None. Bowel: No air-filled distended small bowel loops are identified. There appear to be areas of small bowel thickening within the left hemiabdomen. No air-fluid levels are appreciated. Soft tissues: No masses; visualized solid organ contours appear normal in size. No suspicious abdominal calcifications. Bones: No suspicious bony abnormalities. IMPRESSION: 1. No evidence of a bowel obstruction. 2. Possible small bowel wall thickening is suggestive of enteritis. Dictated by: Ky Gilmore M.D. on 07/25/2019 at 14:24 Approved by: Ky Gilmore M.D. on 07/25/2019 at 14:25 ECG Data Attestation: I personally reviewed and interpreted this ECG as follows: Prior ECG tracings: available for review Interpretation: #1 EKG Sinus rhythm with first-degree AV block with occasional ectopic premature complexes. Left dominant axis NC interval 236, QRS duration 84, QT/QTC 343/[address] elevation or depression. No significant changes from previous EKGs. #2nd EKG Sinus rhythm with first-degree AV block with premature atrial complexes. Left dominant [place]. No ST elevation or depression. NC interval 230, QRS duration 76, QT/QTC 382/462. Artifacts. No hand changes from previous EKGs. MDM Narrative Medical decision making narrative: This is a 68 year female who has visited ER frequently with similar symptoms with excessive mid chest discomfort, nausea. EKG was on change from previous EKGs showing first-degree AV block without ST elevation or depression or T inversions. Patient was medicated with Benadryl and Reglan for excessive belching and nausea. Low risk heart score. CMP shows low sodium level of 124 and chloride of 89 which a new findings for the patient. Patient does not appears to be confused. Her spouse states patient is in her usual state and mentation. According to her spouse, patient does not use salt and very strictly monitoring salt content in her diet. Otherwise, clear etiology for hyponatremia and hypochloremia. Patient is not currently taking anti diuretics. No recent trauma or head injuries. Kidney function test is not within normal limits. Liver function test with mild elevation in AST with normal ALT and alk phosphatase. Patient was nauseated but no vomiting or recent diarrheas. The patient's nausea may related to hyponatremia. Troponin was negative and moderately eleavated total CK and MB. No further cardiac enzymes were obtained since her symptoms started greater than 6 hours ago. Urine specific gravity was slightly low as 1.010 with small amount of ketones and occult blood and urine leukocyte esterase without urine nitrites. There is small amount of urine WBC but also showed squamous epithelial cells. Urine sample maybe the contaminated and Urine culture is pending. Patient was medicated with 500 mL of normal saline bolus. Patient had 1 episode of increasing chest discomfort and repeat EKG was obtained and noted no changes. Patient provided with IV pantoprazole which helped with her symptoms. Since patient had an appendectomy and bowel obstruction as history, abdominal x-ray was added. He was noted no evidence of of bowel obstruction and possible small-bowel were thickening suggestive of enteritis which is not too consistent. No leukocytosis. Patient is afebrile. There is no vomiting. No abdominal pain per palpation and abdomen was soft without distension. Patient's blood pressure and heart rate were within normal limits. Patient advised not to limit salt intake and to take liberally take food with high salt today next few days. Patient advised to use sports drink and sugar free sports drink instead of free water to hydrate. Patient advised to follow-up with her primary care physician next 2 days for recheck electrolytes. Strict return precautions were discussed with patient and spouse. Patient advised to use [id number] omeprazole, Mylanta, Tums, anti acid for next 2 weeks for her symptoms. If patient's symptoms recurring and persistent, patient to follow-up EGD/GI specialist. The patient and spouse verbalized understanding and agreement with the treatment plan. <Vaishnavi Amador, DO - Last Filed: 07/28/19 11:38> Lab Data Attestation: I reviewed the patient's lab results. Labs: Lab Results 07/25/19 07/25/19 07/25/19 Range/Units 11:55 11:55 11:55 WBC 8.0 (4.5-11.0) X10^3/uL RBC 4.00 (4.0-5.2) X10^6/uL Hgb 12.5 (12.0-16.0) g/dL Hct 36.3 (36-46) % MCV 90.9 (80-100) fL MCH 31.3 (26-34) PG MCHC 34.4 (30-36) % RDW 12.7 (11.6-14.8) % Plt Count 269 (150-400) X10^3/uL Neut % (Auto) 71.5 (50-75) % Lymph % (Auto) 20.6 L (25-40) % [place] % (Auto) 6.6 (3-14) % Eos % (Auto) 0.3 L (2-4) % Baso % (Auto) 1.0 (0-2) % Neut # (Auto) 5700 (1408-4152) /uL Lymph # (Auto) 1600 (8875-8880) /uL [place] # (Auto) 500 (0-900) /uL Eos # (Auto) 0 (0-450) /uL Baso # (Auto) 100 (0-100) /uL PT 10.9 (10.1-12.7) SECONDS INR 1.0 (0.9-1.3) APTT 33 D (26.4-36.2) SECONDS D-Dimer (<230) ng/mL Sodium 124 L (137-145) mmol/L Potassium 4.4 (3.4-5.1) mmol/L Chloride 89 L (98-107) mmol/L Carbon Dioxide 22 (22-32) mmol/L BUN 13 (7-17) mg/dL Creatinine 0.64 (0.52-1.04) mg/dL Estimated GFR > 60.0 (>60) mL/min BUN/Creatinine Ratio 20.3 (6-22) Glucose 130 H (80-110) mg/dL Calcium 9.3 (8.4-10.2) mg/dL Total Bilirubin 0.6 (0.2-1.3) mg/dL AST 43 H (14-36) IU/L ALT 26 (<35) IU/L Alkaline Phosphatase 89 (38-126) U/L Total Creatine Kinase 302 H (30-135) U/L CK-MB (CK-2) 4.53 H (<2.37) ng/mL CK-MB (CK-2) Rel Index 1.5 (1.5-5.0) % Troponin I < 0.012 (0.01-0.034) ng/mL Total Protein 8.1 (6.3-8.2) g/dL Albumin 4.8 (3.5-5.0) g/dL Globulin 3.3 (1.7-4.1) g/dL Albumin/Globulin Ratio 1.5 (1.0-2.8) Lipase 269 (23-300) U/L Urine RBC (0-5/HPF) Urine WBC (0-5/HPF) Ur Squamous Epith Cells (0-5/HPF) Urine Bacteria (None) Ur Culture Indicated? 07/25/19 07/25/19 Range/Units 11:55 13:45 WBC (4.5-11.0) X10^3/uL RBC (4.0-5.2) X10^6/uL Hgb (12.0-16.0) g/dL Hct (36-46) % MCV (80-100) fL MCH (26-34) PG MCHC (30-36) % RDW (11.6-14.8) % Plt Count (150-400) X10^3/uL Neut % (Auto) (50-75) % Lymph % (Auto) (25-40) % [place] % (Auto) (3-14) % Eos % (Auto) (2-4) % Baso % (Auto) (0-2) % Neut # (Auto) (0698-9091) /uL Lymph # (Auto) (3002-1762) /uL [place] # (Auto) (0-900) /uL Eos # (Auto) (0-450) /uL Baso # (Auto) (0-100) /uL PT (10.1-12.7) SECONDS INR (0.9-1.3) APTT (26.4-36.2) SECONDS D-Dimer < 200 (<230) ng/mL Sodium (137-145) mmol/L Potassium (3.4-5.1) mmol/L Chloride (98-107) mmol/L Carbon Dioxide (22-32) mmol/L BUN (7-17) mg/dL Creatinine (0.52-1.04) mg/dL Estimated GFR (>60) mL/min BUN/Creatinine Ratio (6-22) Glucose (80-110) mg/dL Calcium (8.4-10.2) mg/dL Total Bilirubin (0.2-1.3) mg/dL AST (14-36) IU/L ALT (<35) IU/L Alkaline Phosphatase (38-126) U/L Total Creatine Kinase (30-135) U/L CK-MB (CK-2) (<2.37) ng/mL CK-MB (CK-2) Rel Index (1.5-5.0) % Troponin I (0.01-0.034) ng/mL Total Protein (6.3-8.2) g/dL Albumin (3.5-5.0) g/dL Globulin (1.7-4.1) g/dL Albumin/Globulin Ratio (1.0-2.8) Lipase (23-300) U/L Urine RBC 1-5/hpf (0-5/HPF) Urine WBC 5-10/hpf H (0-5/HPF) Ur Squamous Epith Cells 1-5 /hpf (0-5/HPF) Urine Bacteria Moderate (10-30) H (None) Ur Culture Indicated? Specimen cultured Urine Dip Bedside Urine Glucose Negative Bedside Urine Bilirubin - Negative Bedside Urine Ketone +/- 5 Urine Specific [place] 1.010 Bedside Urine Occult Blood + Bedside Urine pH 6.5 Bedside Urine Protein - Negative Bedside Urine Urobilinogen - Negative Bedside Urine Nitrite - Negative Bedside Urine Leukocytes + 70 Esterase MDM Narrative Medical decision making narrative: Patient case was discussed with myself. We did discuss patients HPI, exam and lab abnormalities and patient has not had any clear symptoms of hyponatremia requiring hospitalization at this time. It was discussed that she needs close follow up and return precautions were discussed as well as potential causes of low sodium. Cardiac labs/EKG were not repeated as she had normal trop with no new EKG changes and not highly suspicious chest pain at this time although does have risk factors. Discharge Plan Departure Patient Disposition: Home Clinical Impression: Epigastric pain, Atypical chest pain Discharge Date/Time: 07/25/19 16:12 Instructions: DI for Dyspepsia, DI for Epigastric Pain Activity Restrictions/Additional Instructions: You have been diagnosed with [atypical chest pain and pain in epigastric region, dyspepsia/indigestion. Your EKG, chest and abdominal x-ray, blood tests are all assuring except hypo natremia of 124 and hypochloremia of 86. It is likely due to your limiting salt intake significantly. Please hydrate adequately with sports drink with and without glucose which has electrolytes. Since you are not confused and has altered mental status, you will be able to go home today. Please recheck sodium and chloride level in 2 days with your primary care physician]. What to do: *Take your medications as directed. You can take [id number] home Tagamet or Mylanta or omeprazole for your symptoms with belching, indigestion, epigastric pain. *Follow up with your primary care provider in 2-3 days, call for an appointment. Let them know you were seen in the ED and that we asked you to be seen in follow up. *Return to ED if you have any new, worsening, or concerning symptoms, such as [chest pain, breathing difficulty, unable to tolerate fluids, fever, worsening pain, altered mental status, seizure, confusion or any acute concerns]. Prescriptions: New nitrofurantoin macrocrystal 100 mg capsule 100 mg PO BID 5 Days Qty: 10 RF: 0 No Action aspirin 81 MG tablet,delayed release (DR/EC) 162 mg PO QDAY Qty: 0 RF: 0 calcium carbonate-vitamin D3 [Oyster Shell Calcium-Vit D3] 500 MG/200 IU tablet 1 tab PO BID Qty: 0 RF: 0 epinephrine [EpiPen 2-Damaso] 0.3 mg/0.3 mL auto-injector 0.3 mg IM Q30M PRN (Reason: anaphylaxis) Qty: 2 RF: 0 lisinopril 40 mg tablet 40 mg PO DAILY RF: 0 atorvastatin 20 mg tablet 20 mg PO DAILY RF: 0 amlodipine 5 mg tablet 5 mg PO DAILY RF: 0 famotidine 20 mg tablet 20 mg PO BID RF: 0 olopatadine [Patanol] 0.1 % drops 1 drp ophthalmic (eye) DIRECTED RF: 0 acetaminophen 325 MG tablet 650 mg PO Q4HP PRN (Reason: pain) RF: 0 fluticasone propionate 50 mcg/actuation spray,suspension 1 spray intranasal DAILY PRN (Reason: Allergy Symptoms) RF: 0 ibuprofen 400 MG tablet 400 mg PO Q6HP PRN (Reason: pain) RF: 0 calcium carbonate [Tums] 200 mg calcium (500 mg) Tablet,Chewable 200 mg PO QID RF: 0 Referrals: Chevy Kapadia [Primary Care Provider] -
[2019-07-25 12:12] LABS: Prothrombin Time 10.9 SECONDS (10.1-12.7)
[2019-07-25 12:15] LABS: PTT Partial Thromboplastin Tim 33 SECONDS (26.4-36.2)
[2019-07-25 12:16] LABS: Alanine Aminotransferase 26 IU/L (<35); Albumin 4.8 g/dL (3.5-5.0); Albumin Globulin Ratio 1.5 (1.0-2.8); Alkaline Phosphatase 89 U/L (38-126); Aspartate Aminotransferase 43 IU/L (14-36); BUN Creatinine Ratio 20.3 (6-22); Bilirubin Total 0.6 mg/dL (0.2-1.3); Blood Urea Nitrogen 13 mg/dL (7-17); Calcium 9.3 mg/dL (8.4-10.2); Carbon Dioxide 22 mmol/L (22-32); Chloride 89 mmol/L (98-107); Creatine Kinase 302 U/L (30-135); Estimated Glomerular Filt Rate > 60.0 mL/min (>60); Globulin 3.3 g/dL (1.7-4.1); Glucose 130 mg/dL (80-110); HEMOLYSIS < 15 (0-50); Lipase 269 U/L (23-300); Potassium 4.4 mmol/L (3.4-5.1); Sodium 124 mmol/L (137-145); Total Protein 8.1 g/dL (6.3-8.2)
[2019-07-25 12:28] LABS: Troponin I < 0.012 ng/mL (0.01-0.034)
[2019-07-25 12:31] LABS: CKMB % Relative Index 1.5 % (1.5-5.0); Creatine Kinase MB 4.53 ng/mL (<2.37)
[2019-07-25] MEDS: SODIUM CHLORIDE 0.9% 500 ML 1000 ML IV (12:43)
[2019-07-25] MEDS: METOCLOPRAMIDE 10 MG/2 ML INJ 5 MG IV (12:43)
[2019-07-25] MEDS: diphenhydrAMINE 50 MG/ML VIAL 12.5 MG IV (12:43)
[2019-07-25 13:09] LABS: D Dimer < 200 ng/mL (<230)
[2019-07-25] MEDS: MAG HYDROX/ALUMINUM/SIMETH SUS 20 ML, LIDOCAINE VISCOUS 2% 15 ML PO (13:30)
[2019-07-25 14:15] VITALS: BP 127/76; PULSE 85; RESP 24; O2SAT 99
[2019-07-25] MEDS: PANTOPRAZOLE 40 MG VIAL IV (14:17)
--- NOTE | 2019-07-25 14:18 | PC.NURSE ---
Pt c/o lower face feeling numb and return of chest pain,[place] aware,ordered repeat EKG
[2019-07-25 14:20] LABS: Bacteria Urine Moderate (10-30); Culture Indicated Urine Specimen Cultured; RBC Urine 1-5/HPF (0-5/HPF); Squamous Epithelial Cell Urine 1-5 /HPF (0-5/HPF); WBC Urine 5-10/HPF (0-5/HPF)
--- NOTE | 2019-07-25 14:55 | DI.RAD.S_ITS ---
PROCEDURE: XR ABDOMEN MIN 2V INDICATIONS: belching, hx bowel obstruction TECHNIQUE: 2 views of the abdomen were acquired. COMPARISON: None. FINDINGS: Surgical changes and devices: None. Bowel: No air-filled distended small bowel loops are identified. There appear to be areas of small bowel thickening within the left hemiabdomen. No air-fluid levels are appreciated. Soft tissues: No masses; visualized solid organ contours appear normal in size. No suspicious abdominal calcifications. Bones: No suspicious bony abnormalities. IMPRESSION: 1. No evidence of a bowel obstruction. 2. Possible small bowel wall thickening is suggestive of enteritis. Dictated by: Ky Gilmore M.D. on 07/25/2019 at 14:24 Approved by: Ky Gilmore M.D. on 07/25/2019 at 14:25
[2019-07-25 15:47] VITALS: BP 114/71; PULSE 83; RESP 25; O2SAT 99
== END 2019-07-25 16:12 | disposition home or self-care (01) ==
PROVIDERS: Emergency Medicine; Emergency Provider Nurse Practitioner Family; PCP Family Medicine
DX: R10.13 Epigastric pain (principal); R07.89 Other chest pain; I10 Essential (primary) hypertension; E78.5 Hyperlipidemia, unspecified
CPT/HCPCS: 36415; 71045; 74019; 80053; 81003; 81015; 82550; 82553; 83690; 84484; 85025; 85379; 85610; 85730; 87077; 87086; 87186; 93005; 96361; 96374; 96375; 99284; 99285; C9113; J1200; J2765

== ENCOUNTER 2019-07-27 22:51 | Observation (INO) | payer MEDICARE, OTHER, SELFPAY ==
--- NOTE | 2019-07-27 22:59 | ED.CHESTPAIN ---
HPI - Chest Pain General Chief Complaint: Chest Pain Stated Complaint: Chest Pain and SOB Time Seen by Provider: 07/27/19 22:54 Source: patient and family Mode of arrival: Ambulatory Limitations: no limitations History of Present Illness HPI narrative: 68F non smoker with history of HTN, hyperlipidemia presents with ongoing chest, abdominal and shoulder pain since Saturday. She does not have a specific or for memory of how her symptoms began but describes it as a pressure and aching sensation goes from lower abdomen into chest and also right shoulder. She denies much in the way of provocation or palliation. She has had nausea but denies any vomiting. She has been short of breath as well. She denies any history of the same and was seen and evaluated here a few days ago under similar circumstances with what was at that time a relatively unremarkable workup. She denies any syncope, recent travel or exposure to persons known to have COVID-19. PCP Belk[facility]. Has stress test scheduled for 08/06 Related Data Home Medications Medication Instructions Recorded Confirmed aspirin 81 mg PO QDAY #0 01/20/17 09/26/18 calcium carbonate-vitamin D3 1 tab PO BID #0 01/20/17 09/26/18 [Oyster Shell Calcium-Vit D3] acetaminophen 650 mg PO Q4HP PRN 09/26/18 09/26/18 amlodipine 5 mg PO DAILY 09/26/18 04/14/19 atorvastatin 20 mg PO DAILY 09/26/18 04/14/19 famotidine 20 mg PO BID 09/26/18 09/26/18 fluticasone propionate 1 spray INTRANASAL DAILY PRN 09/26/18 09/26/18 ibuprofen 400 mg PO Q6HP PRN 09/26/18 09/26/18 olopatadine [Patanol] 1 drp OPHTHALMIC (EYE) DIRECTED 09/26/18 04/14/19 lisinopril 40 mg PO DAILY 04/14/19 04/14/19 Previous Rx's Medication Instructions Recorded cetirizine 10 mg PO DAILY PRN #4 tab 10/02/17 epinephrine [EpiPen 2-Damaso] 0.3 mg IM Q30M PRN #2 each 10/02/17 amlodipine 10 mg PO DAILY #20 tab 09/26/18 nitrofurantoin macrocrystal 100 mg PO BID 5 Days #10 cap 07/27/19 Allergies Allergy/AdvReac Type Severity Reaction Status Date / Time No Known Drug Allergies Allergy Verified 04/14/19 13:12 Review of Systems Constitutional Constitutional: Denies chills, Denies fatigue, Denies fever(s), Denies frequent falls, Denies lethargy and Denies weakness Eyes Eyes: Denies change in vision, Denies eye discharge, Denies irritation and Denies loss of vision ENT Ears, Nose, Mouth, and Throat: Denies change in voice, Denies dizziness, Denies neck pain, Denies sore throat and Denies throat swelling Cardiovascular Cardiovascular: Reports chest pain, Denies irregular heart rhythm, Denies lightheadedness, Denies palpitations, Reports dyspnea, Reports dyspnea on exertion and Denies orthopnea Respiratory Respiratory: Denies cough, Reports dyspnea, Reports dyspnea on exertion and Denies wheezing Gastrointestinal Gastrointestinal: Reports abdominal pain, Denies change in bowel habits, Denies diarrhea, Reports nausea and Denies vomiting Genitourinary Genitourinary: Denies hematuria, Denies flank pain, Denies urinary incontinence and Denies urinary urgency Musculoskeletal Musculoskeletal: Denies back pain, Denies muscle weakness, Denies neck pain, Denies numbness and Denies tingling Integumentary/Breasts Skin/Breast: Denies pruritus, Denies erythema, Denies rash and Denies wounds Neurologic Neurologic: Denies behavioral changes, Denies confusion, Denies dizziness, Denies frequent falls, Denies loss of vision, Denies numbness, Denies tingling and Denies weakness Psychiatric Psychiatric: Denies anxiety, Denies behavioral changes, Denies confusion, Denies depression, Denies homicidal ideation and Denies suicidal ideation Endocrine Endocrine: Denies fatigue, Denies flushing and Denies palpitations Hematologic/Lymphatic Hematologic/Lymphatic: Denies easy bruising Allergic/Immunologic Allergic/Immunologic: Denies urticaria, Denies throat swelling and Denies wheezing Patient History Medical History Dyslipidemia (Chronic) Hypertension (Chronic) Surgical History History of cataract surgery (Acute) Hx of appendectomy (Chronic) Social History marital status: Smoking Status: Never smoker alcohol intake: never substance use type: does not use Smoking Status: Never smoker alcohol intake frequency: 0-2 drinks per day Substance Use Type: does not use Exam Narrative Exam Narrative: GENERAL: [68] year old patient appears stated age. Well-nourished, well-developed patient, in mild distress. Rubbing her abdomen HEAD: Atraumatic. Normocephalic. EYES: Pupils equal round and reactive. Extraocular motions intact. No scleral icterus. No injection or drainage. ENT: Nose without bleeding, purulent drainage. Throat without erythema, tonsillar hypertrophy or exudate. Airway patent. NECK: Trachea midline. Non tender CARDIOVASCULAR: Regular rate and rhythm without murmurs, gallops, or rubs. RESPIRATORY: Clear to auscultation. Breath sounds equal bilaterally. No wheezes, rales, or rhonchi. GASTROINTESTINAL: Abdomen soft, non-tender, nondistended. No palpable pulsatile mass EXTREMITIES: No edema or joint tenderness. BACK: Nontender without deformity or crepitance. No flank tenderness. NEURO: AOx3. SKIN: No rash or erythema of visible areas Initial Vital Signs Initial Vital Signs: Vital Signs Temperature 99.3 F 07/27/19 23:01 Pulse Rate 79 07/27/19 23:01 Respiratory Rate 19 07/27/19 23:01 Blood Pressure 163/89 H 07/27/19 23:01 Pulse Oximetry 99 07/27/19 23:01 Course Orders Ordered: ED Orders 07/27/19 22:58 EKG-12 Lead Stat 07/27/19 23:00 XR chest 1V Stat Complete Blood Count AUTO DIFF Stat Comprehensive Metabolic Panel Stat D Dimer Stat Lipase Stat NT-proBNP (BNP-Adult 18+) Stat Partial Thromboplastin Time Stat Prothrombin Time INR Stat Troponin & CK Cardiac Panel Stat 07/28/19 00:18 CT angio chest abdomen pelvis Stat Sodium Chloride (Normal Saline 0.9%) 1,000 mls @ 150 mls/hr IV CONT VARSHA Last Admin: 07/27/19 23:25 Dose: 150 mls/hr Documented by: KENDELL Discontinued Medications Aspirin (Aspirin Chew) 324 mg PO NOW ONE Stop: 07/27/19 23:00 Last Admin: 07/27/19 23:24 Dose: 324 mg Documented by: KENDELL Nitroglycerin (Nitro-Bid) 0.5 inch TOP NOW ONE Stop: 07/27/19 23:00 Last Admin: 07/27/19 23:25 Dose: 0.5 inch Documented by: KENDELL Buckley Consultation #1: call to Vascular at [facility] ([place]), does not believe CT findings explain her symptoms and has no specific recommendations regarding aneurysm, suggesting not surgical in nature. Suggests call to CT call to CT at [facility] ([place]) Vital Signs Vital signs: Vital Signs - 8 hr 07/27/19 23:01 07/27/19 23:46 07/28/19 02:17 Temperature 99.3 F Pulse Rate 79 74 71 Respiratory Rate 19 98 H 14 Blood Pressure 163/89 H Blood Pressure [Right Arm] 116/76 106/66 Pulse Oximetry 99 98 97 MDM - Chest Pain Lab Data Result diagrams: 07/27/19 23:00 07/27/19 23:00 Labs: Lab Results 07/27/19 07/27/19 07/27/19 Range/Units 23:00 23:00 23:00 WBC 6.5 (4.5-11.0) X10^3/uL RBC 3.86 L (4.0-5.2) X10^6/uL Hgb 12.2 (12.0-16.0) g/dL Hct 35.2 L (36-46) % MCV 91.1 (80-100) fL MCH 31.6 (26-34) PG MCHC 34.7 (30-36) % RDW 12.5 (11.6-14.8) % Plt Count 263 (150-400) X10^3/uL Neut % (Auto) 61.2 (50-75) % Lymph % (Auto) 25.4 (25-40) % [place] % (Auto) 10.5 (3-14) % Eos % (Auto) 1.5 L (2-4) % Baso % (Auto) 1.4 (0-2) % Neut # (Auto) 4000 (8579-4424) /uL Lymph # (Auto) 1700 (7607-5996) /uL [place] # (Auto) 700 (0-900) /uL Eos # (Auto) 100 (0-450) /uL Baso # (Auto) 100 (0-100) /uL PT 10.8 (10.1-12.7) SECONDS INR 0.9 (0.9-1.3) APTT 31 D (26.4-36.2) SECONDS D-Dimer < 200 (<230) ng/mL Sodium (137-145) mmol/L Potassium (3.4-5.1) mmol/L Chloride (98-107) mmol/L Carbon Dioxide (22-32) mmol/L BUN (7-17) mg/dL Creatinine (0.52-1.04) mg/dL Estimated GFR (>60) mL/min BUN/Creatinine Ratio (6-22) Glucose (80-110) mg/dL Calcium (8.4-10.2) mg/dL Total Bilirubin (0.2-1.3) mg/dL AST (14-36) IU/L ALT (<35) IU/L Alkaline Phosphatase (38-126) U/L Total Creatine Kinase (30-135) U/L CK-MB (CK-2) (<2.37) ng/mL CK-MB (CK-2) Rel Index (1.5-5.0) % Troponin I (0.01-0.034) ng/mL NT-Pro-B Natriuret Pep 160 H (<125) pg/mL Total Protein (6.3-8.2) g/dL Albumin (3.5-5.0) g/dL Globulin (1.7-4.1) g/dL Albumin/Globulin Ratio (1.0-2.8) Lipase (23-300) U/L 05/18/20 Range/Units 23:00 WBC (4.5-11.0) X10^3/uL RBC (4.0-5.2) X10^6/uL Hgb (12.0-16.0) g/dL Hct (36-46) % MCV (80-100) fL MCH (26-34) PG MCHC (30-36) % RDW (11.6-14.8) % Plt Count (150-400) X10^3/uL Neut % (Auto) (50-75) % Lymph % (Auto) (25-40) % [place] % (Auto) (3-14) % Eos % (Auto) (2-4) % Baso % (Auto) (0-2) % Neut # (Auto) (8351-7713) /uL Lymph # (Auto) (0742-4460) /uL [place] # (Auto) (0-900) /uL Eos # (Auto) (0-450) /uL Baso # (Auto) (0-100) /uL PT (10.1-12.7) SECONDS INR (0.9-1.3) APTT (26.4-36.2) SECONDS D-Dimer (<230) ng/mL Sodium 123 L (137-145) mmol/L Potassium 3.7 (3.4-5.1) mmol/L Chloride 90 L (98-107) mmol/L Carbon Dioxide 21 L (22-32) mmol/L BUN 16 (7-17) mg/dL Creatinine 0.81 (0.52-1.04) mg/dL Estimated GFR > 60.0 (>60) mL/min BUN/Creatinine Ratio 19.8 (6-22) Glucose 120 H (80-110) mg/dL Calcium 8.5 (8.4-10.2) mg/dL Total Bilirubin 0.3 (0.2-1.3) mg/dL AST 32 (14-36) IU/L ALT 23 (<35) IU/L Alkaline Phosphatase 84 (38-126) U/L Total Creatine Kinase 161 H (30-135) U/L CK-MB (CK-2) 1.95 (<2.37) ng/mL CK-MB (CK-2) Rel Index 1.2 L (1.5-5.0) % Troponin I < 0.012 (0.01-0.034) ng/mL NT-Pro-B Natriuret Pep (<125) pg/mL Total Protein 7.5 (6.3-8.2) g/dL Albumin 4.4 (3.5-5.0) g/dL Globulin 3.1 (1.7-4.1) g/dL Albumin/Globulin Ratio 1.4 (1.0-2.8) Lipase 446 H D (23-300) U/L Imaging Data CT scan - chest: Radiologist's Impression: Aneurysms of the ascending aorta, abdominal aorta, and left common iliac artery. No dissections Nonspecific bowel gas pattern with a few air-fluid levels. No discrete transition points, likely ileus MDM Narrative Medical decision making narrative: Patient with 2nd visit in as many days for chest pain, abdominal pain, radiation to back and shoulder as well as lightheadedness, nausea and shortness of breath. The differential is broad but includes cardiac ischemia, thought less likely given nonischemic EKG and normal troponin, however given association with multiple cardiac equivalents and an upcoming stress test this remains on the differential. Pulmonary embolism considered however patient has normal D-dimer and no findings CT angiogram. Vascular diagnoses such as aneurysm and dissection considered, dissection not found on imaging and after discussion with Cardiothoracic and vascular surgery the aneurysmal dilatations thought to be very unlikely to be causing pain and essentially incidental findings. Abdominal pain is likely from an ileus, patient is high risk for adhesions but does not appear to be obstructed. Patient requires hospitalization for trending of cardiac enzymes, likely will receive her stress test and possible echo during this admission as well as fluid hydration and ongoing evaluation of her ileus Critical Care Time Critical Care Time Critical Care Time: Yes Total Critical Care Time: 35 Attestation: The high probability of a clinically significant, sudden or life threatening deterioration of the [CV] system(s) required my full and direct attention, intervention and personal management. The aggregate critical care time was [35] minutes. This time is in addition to time spent performing reported procedures but includes the following: [x] Data Review and interpretation [x] Patient assessment and monitoring of vital signs [x] Documentation [x] Medication orders and management Discharge Plan Departure Patient Disposition: Admitted as Observation Clinical Impression: Ileus Chest pain Qualifiers: Ischemic chest pain type: stable angina pectoris
--- NOTE | 2019-07-27 23:00 | DI.RAD.S_ITS ---
7PROCEDURE: XR CHEST 1V INDICATIONS: chest pain TECHNIQUE: One view of the chest was acquired. COMPARISON: Located Within [facility], CR, XR CHEST 1V, 04/14/2019, 15:12. Located Within [facility], CT, CT ANGIO CHEST ABDOMEN PELVIS, 07/28/2019, 0:24. Located Within [facility], CR, XR CHEST 1V, 07/25/2019, 12:58. FINDINGS: Surgical changes and devices: None. Lungs and pleura: Lungs are clear. No pleural effusions or pneumothorax. Mediastinum: Mediastinal contours appear normal. Tortuous, descending aorta. Heart is mildly enlarged. Bones and chest wall: No suspicious bony lesions. Overlying soft tissues appear unremarkable. IMPRESSION: No acute cardiopulmonary disease process. Dictated by: Valentine Dooley MD, PhD on 07/28/2019 at 7:51 Approved by: Valentine Dooley MD, PhD on 07/28/2019 at 7:53
[2019-07-27 23:01] VITALS: BP 163/89; PULSE 79; RESP 19; TEMP 37.4; O2SAT 99; BMI 22.2
[2019-07-27 23:11] LABS: Add Manual Diff / Slide Review NO; Basophils Absolute Auto 100 /uL (0-100); Basophils Percent Auto 1.4 % (0-2); Eosinophils Absolute Auto 100 /uL (0-450); Eosinophils Percent Auto 1.5 % (2-4); Hematocrit 35.2 % (36-46); Hemoglobin 12.2 g/dL (12.0-16.0); Lymphocytes Absolute Auto 1700 /uL (1100-4500); Lymphocytes Percent Auto 25.4 % (25-40); Mean Corpuscular HGB Conc 34.7 % (30-36); Mean Corpuscular Hemoglobin 31.6 PG (26-34); Mean Corpuscular Volume 91.1 fL (80-100); Monocytes Absolute Auto 700 /uL (0-900); Monocytes Percent Auto 10.5 % (3-14); Neutrophils Absolute Auto 4000 /uL (1500-7000); Neutrophils Percent Auto 61.2 % (50-75); Platelet Count 263 X10^3/uL (150-400); Red Blood Cell Count 3.86 X10^6/uL (4.0-5.2); Red Cell Distribution Width 12.5 % (11.6-14.8); White Blood Cell Count 6.5 X10^3/uL (4.5-11.0)
[2019-07-27 23:24] LABS: INR 0.9 (0.9-1.3); Prothrombin Time 10.8 SECONDS (10.1-12.7)
[2019-07-27] MEDS: ASPIRIN 81 MG CHEW TAB 324 MG PO (23:24)
[2019-07-27 23:25] LABS: Alanine Aminotransferase 23 IU/L (<35); Albumin 4.4 g/dL (3.5-5.0); Albumin Globulin Ratio 1.4 (1.0-2.8); Alkaline Phosphatase 84 U/L (38-126); Aspartate Aminotransferase 32 IU/L (14-36); BUN Creatinine Ratio 19.8 (6-22); Bilirubin Total 0.3 mg/dL (0.2-1.3); Blood Urea Nitrogen 16 mg/dL (7-17); Calcium 8.5 mg/dL (8.4-10.2); Carbon Dioxide 21 mmol/L (22-32); Chloride 90 mmol/L (98-107); Creatine Kinase 161 U/L (30-135); Estimated Glomerular Filt Rate > 60.0 mL/min (>60); Globulin 3.1 g/dL (1.7-4.1); Glucose 120 mg/dL (80-110); HEMOLYSIS < 15 (0-50); Lipase 446 U/L (23-300); Potassium 3.7 mmol/L (3.4-5.1); Sodium 123 mmol/L (137-145); Total Protein 7.5 g/dL (6.3-8.2)
[2019-07-27] MEDS: NITROGLYCERIN OINT 1 INCH/GM OINT...G. 0.5 INCH TOP (23:25)
[2019-07-27] MEDS: SODIUM CHLORIDE 0.9% 1,000 ML 150 ML IV (23:25)
[2019-07-27 23:26] LABS: PTT Partial Thromboplastin Tim 31 SECONDS (26.4-36.2)
[2019-07-27 23:28] LABS: D Dimer < 200 ng/mL (<230)
[2019-07-27 23:34] LABS: NT-proBNP (BNP-Adult 18+) 160 pg/mL (<125)
[2019-07-27 23:37] LABS: Troponin I < 0.012 ng/mL (0.01-0.034)
[2019-07-27 23:40] LABS: CKMB % Relative Index 1.2 % (1.5-5.0); Creatine Kinase MB 1.95 ng/mL (<2.37)
[2019-07-27 23:46] VITALS: BP 116/76; PULSE 74; RESP 98; O2SAT 98
[2019-07-28] VITALS (9 sets, daily range): BP systolic 89–166; BP diastolic 59–85; PULSE 68–82; RESP 14–20; TEMP 36.3–37.5; O2SAT 97–100; BMI 22.2
--- NOTE | 2019-07-28 00:18 | DI.CT.S_ITS ---
PROCEDURE: CT ANGIO CHEST ABDOMEN PELVIS INDICATIONS: chest pain, abdominal pain, radiation to back and neck TECHNIQUE: Precontrast 5 mm thick sections acquired from the lung apices to the iliac crests. After the administration of intravenous contrast, 2.5 mm thick sections again acquired from the lung apices to the iliac crests. Maximum intensity projection (MIP) oblique sagittal and coronal reformats were then acquired. For radiation dose reduction, the following was used: automated exposure control. COMPARISON: [facility], CT, CT ANGIO CHEST ABDOMEN PELVIS, 10/08/2018, 10:04. FINDINGS: Image quality: Excellent. AORTA: There is mild fusiform dilatation of the ascending thoracic aorta measuring roughly 43 mm at the aortic root. There is poor tuberosity of the distal descending thoracic aorta as well as the abdominal aorta. Mild ectasia of the distal infrarenal abdominal aorta measuring 28 mm. Mild aneurysmal dilatation of the distal descending thoracic aorta measuring 26 mm. No dissection. CHEST: Lungs and pleura: No evidence of pneumonia, nor edema. There is scarring within the left posterior lung base, as before. No pleural effusions or pneumothorax. Central and peripheral airways are patent and normal in caliber. Mediastinum: Heart size is normal. There is calcification of the coronary vasculature. No pericardial effusion. No mediastinal or hilar adenopathy by size criteria. Central pulmonary arteries are normal in size. Esophagus is normal in caliber. No hiatal hernias. Bones and chest wall: No axillary adenopathy by size criteria. Thyroid gland demonstrates no change in the left lobe nodule. No suspicious bony lesions. No vertebral body compression fractures. ABDOMEN: Vasculature: Celiac trunk and mesenteric arteries are patent. Renal arteries are also patent. Solid organs: Liver is normal in size and enhancement. Gallbladder is within normal limits. Biliary system is non dilated. Pancreas enhances normally. Spleen is normal in size and enhancement. No adrenal nodules. Both kidneys are normal in size and enhancement, without hydronephrosis. Peritoneum and bowel: No free fluid or air. A small hiatal hernia is present. There are multiple mildly distended small bowel loops with air-fluid levels. Colon is nondistended. Nodes and vessels: No retroperitoneal or mesenteric adenopathy by size criteria. Inferior vena cava is normal in morphology. Miscellaneous: No ventral hernias. PELVIS: Genitourinary: Bladder wall thickness is normal. Miscellaneous: No inguinal hernias or adenopathy. No ventral hernias. Bones: No suspicious bony lesions. No vertebral body compression fractures. IMPRESSION: 1. No change in mild aneurysmal dilatation and ectasia of the thoracoabdominal aorta. 2. Small hiatal hernia. 3. Mildly distended small bowel loops with air-fluid levels which may indicate ileus. 4. Coronary artery disease. 5. Concordant with preliminary interpretation. Dictated by: Aleida Leon M.D. on 07/28/2019 at 10:00 Approved by: Aleida Leon M.D. on 07/28/2019 at 10:09
[2019-07-28 04:26] LABS: COVID19 -Nasal RAPID Negative (Negative)
[2019-07-28 04:30] LABS: Troponin I < 0.012 ng/mL (0.01-0.034)
--- NOTE | 2019-07-28 05:09 | PC.NURSE ---
belongings in husbands possession
[2019-07-28] MEDS: SODIUM CHLORIDE 0.9% 1,000 ML 100 ML IV (05:55)
[2019-07-28 06:07] LABS: Add Manual Diff / Slide Review NO; Basophils Absolute Auto 0 /uL (0-100); Basophils Percent Auto 0.6 % (0-2); Eosinophils Absolute Auto 100 /uL (0-450); Eosinophils Percent Auto 0.8 % (2-4); Hematocrit 32.7 % (36-46); Hemoglobin 11.3 g/dL (12.0-16.0); Lymphocytes Absolute Auto 1200 /uL (1100-4500); Lymphocytes Percent Auto 17.9 % (25-40); Mean Corpuscular HGB Conc 34.4 % (30-36); Mean Corpuscular Hemoglobin 31.3 PG (26-34); Mean Corpuscular Volume 90.9 fL (80-100); Monocytes Absolute Auto 600 /uL (0-900); Monocytes Percent Auto 8.5 % (3-14); Neutrophils Absolute Auto 5000 /uL (1500-7000); Neutrophils Percent Auto 72.2 % (50-75); Platelet Count 253 X10^3/uL (150-400); Red Cell Distribution Width 12.7 % (11.6-14.8); White Blood Cell Count 6.9 X10^3/uL (4.5-11.0)
[2019-07-28 06:18] LABS: BUN Creatinine Ratio 15.7 (6-22); Blood Urea Nitrogen 11 mg/dL (7-17); Calcium 8.3 mg/dL (8.4-10.2); Carbon Dioxide 23 mmol/L (22-32); Chloride 97 mmol/L (98-107); Estimated Glomerular Filt Rate > 60.0 mL/min (>60); Glucose 121 mg/dL (80-110); HEMOLYSIS < 15 (0-50); Sodium 127 mmol/L (137-145)
[2019-07-28 06:29] LABS: Troponin I < 0.012 ng/mL (0.01-0.034)
[2019-07-28] MEDS: PANTOPRAZOLE 40 MG VIAL IV (06:48)
--- NOTE | 2019-07-28 06:52 | PC.NURSE ---
Telephone Betting Clerk Note: 0510: Admitted to ICU room 227 as floor care, from ER via stretcher, accompanied by . Pt is alert, oriented X3. IV in place in lt AC, with NS started at 100cc/hr. Pt denies pain at this time. She was able to stand and transfer to bed from stretcher with good balance.
[2019-07-28] MEDS: ATORVASTATIN 20 MG TABLET PO (10:57)
[2019-07-28] MEDS: AMLODIPINE 5 MG TABLET 10 MG PO (10:58)
--- NOTE | 2019-07-28 12:00 | CM.DANOTE ---
DCP: Case received, EMR reviewed and met with patient. Was able to converse with her and obtain information regarding her baseline activity level, as well as living situation. DCP assessment completed with information currently available. Patient is a 68 year old female who admitted early this morning to the care of the hospitalist team. PCP: Dr. Tamayo. Payer: confirmed: Medicare/[employer] for [employer]. Patient came to the hospital via private vehicle secondary to chest and abdominal pain. Patient has HTN, could potentially have an ileus, according to notes. Met with patient in her room. She is alert and oriented, laying in bed. Confirmed that she resides in [place] with her , Maximo. She does not drive, but is independent at home. She has three children, but not in this area. One of them is in the [place] area, and one lives on [facility]. P: DCP to continue to follow for any needs. Meeta Beltran RN/[employer] L[employer] Distributor
[2019-07-28] MEDS: ACETAMINOPHEN 325 MG TABLET 650 MG PO (13:00)
--- NOTE | 2019-07-28 13:14 | P.HP_ITS ---
History of Present Illness History of Present Illness Date Patient Seen: 07/28/19 Time Patient Seen: 13:14 Date of Onset of Symptoms: 07/28/19 Chief complaint: Chest Pain and SOB Narrative: This pleasant 68-year-old female is well known to me. She has been going through a several month history of chest pain has been to the emergency department multiple times with negative EKG and negative cardiac enzymes. She has a stress may be scheduled for August 06. It was felt that she had anxiety that was certainly contributing and she was started on sertraline a few weeks ago in the clinic. She feels that it makes her dizzy. She is only taking 12.5 mg daily. She is having anxiety. She is having anterior chest discomfort located left anterior as well as bilateral lower rib. She underwent CT scan of the chest abdomen and pelvis. There was a questionable bowel ileus but she is stooling today and is on clear liquids and is tolerating them well and is actually hungry. She also was found to have a small abdominal aortic aneurysm and a thoracic ascending aneurysm. The emergency room physician discussed this with vascular surgery as well as thoracic surgery at [facility]. They did not feel that these findings were related to her pain. Patient has previously been diagnosed with abdominal aortic aneurysm. This is been followed. It has not changed. There was no evidence of leaking. She also has an aneurysm of the common iliac artery. Patient did not sleep well last night. She did have significant symptoms with nitro glycerin which was given in the ER she had a severe headache as well as hypotension and she still has a headache. She was just given Tylenol. Past medical history: 1. Hyponatremia 2. Hyperlipidemia 3. Hypertension 4. Peptic ulcer Disease 5. Osteoporosis 6. Allergic rhinitis 7. Abdominal aortic aneurysm 8. Common iliac aneurysm 9. Hyperglycemia 10. Probable anxiety 11. Thyroid nodule 12. Lumbar radiculopathy Past surgical history: Appendectomy November 2016 Lens implant Family history Father with hypertension, acute myocardial infarction and at 72 Mother hypertension at 45 an acute myocardial infarction Patient has 9 siblings they are all healthy some with hypertension but none with coronary artery disease Patient has 3 children that are healthy Maternal grandmother at 75 from complications of diabetes Health through the behavior: Patient does not smoke and never has an irregular basis Patient does not use alcohol on a regular basis Patient is fairly active Social history patient is she is 1978. She is retired [employer] for almost 25 years she has 2 grown boys and a grown daughter Review of systems is negative other than above No current reflux symptoms No and intentional weight loss or weight gain She has been anxious and worried She denies depression She denies palpitations She denies exertional dyspnea She denies lower Extremity edema she denies change in bowel movements. She denies abdominal pain. Patient History Medical History Dyslipidemia (Chronic) Hypertension (Chronic) Surgical History History of cataract surgery (Acute) Hx of appendectomy (Chronic) Family & Social History Social History: household members spouse Prior Living Arrangements House Safety & Behavioral: Feels Safe in Current Yes Environment Been Physically Hurt or No Threatened By a Person Suicidal Ideation Description None Suicide Plan Description No Plan Tobacco & Substance use: Smoking Status Never smoker alcohol intake never alcohol intake frequency 0-2 drinks per day Substance Use Type does not use Meds Home Medications and Allergies Home Medications Medication Instructions Recorded Confirmed Type aspirin 162 mg PO QDAY #0 01/20/17 07/28/19 History calcium carbonate-vitamin D3 1 tab PO BID #0 01/20/17 07/28/19 History [Oyster Shell Calcium-Vit D3] epinephrine [EpiPen 2-Damaso] 0.3 mg IM Q30M PRN #2 each 10/02/17 07/28/19 Rx acetaminophen 650 mg PO Q4HP PRN 09/26/18 07/28/19 History amlodipine 5 mg PO DAILY 09/26/18 07/28/19 History atorvastatin 20 mg PO DAILY 09/26/18 07/28/19 History famotidine 20 mg PO BID 09/26/18 07/28/19 History fluticasone propionate 1 spray INTRANASAL DAILY PRN 09/26/18 07/28/19 History ibuprofen 400 mg PO Q6HP PRN 09/26/18 07/28/19 History olopatadine [Patanol] 1 drp OPHTHALMIC (EYE) DIRECTED 09/26/18 07/28/19 History lisinopril 40 mg PO DAILY 04/14/19 07/28/19 History nitrofurantoin macrocrystal 100 mg PO BID 5 Days #10 cap 07/27/19 07/28/19 Rx calcium carbonate [Tums] 200 mg PO QID 07/28/19 07/28/19 History Allergies Allergy/AdvReac Type Severity Reaction Status Date / Time No Known Drug Allergies Allergy Verified 04/14/19 13:12 Exam Vital Signs (past 8 hours): - 07/28/19 05:40 07/28/19 07:25 07/28/19 11:13 Temperature 98.7 F 99.5 F 98.3 F Pulse Rate 74 82 69 Respiratory Rate 17 16 18 Blood Pressure 156/85 H 136/79 166/83 H Pulse Oximetry 99 99 99 07/28/19 12:00 Temperature Pulse Rate Respiratory Rate Blood Pressure 153/82 H Pulse Oximetry Oxygen Delivery Method Room Air Oxygen Flow Rate 0 Narrative Exam Narrative: Afebrile vital signs are stable blood pressure slightly el evated. Patient is alert and oriented no apparent distress but appears slightly anxious HEENT: Unremarkable Neck: Supple without adenopathy Chest: Clear to auscultation without wheezes rhonchi or crackles Cor: Regular rate and rhythm without murmur Abdomen: Positive bowel sounds soft nontender nondistended no hepatosplenomegaly Extremities: No edema, pulses intact DTRs 2+ bilaterally Neurologic exam nonfocal Objective Labs Result Diagrams: 07/28/19 05:51 07/28/19 05:51 Labs: Laboratory Results - last 24 hr 07/27/19 07/27/19 07/27/19 23:00 23:00 23:00 WBC 6.5 RBC 3.86 L Hgb 12.2 Hct 35.2 L MCV 91.1 MCH 31.6 MCHC 34.7 RDW 12.5 Plt Count 263 Neut % (Auto) 61.2 Lymph % (Auto) 25.4 [place] % (Auto) 10.5 Eos % (Auto) 1.5 L Baso % (Auto) 1.4 Neut # (Auto) 4000 Lymph # (Auto) 1700 [place] # (Auto) 700 Eos # (Auto) 100 Baso # (Auto) 100 PT 10.8 INR 0.9 APTT 31 D D-Dimer < 200 Sodium Potassium Chloride Carbon Dioxide BUN Creatinine Estimated GFR BUN/Creatinine Ratio Glucose Calcium Total Bilirubin AST ALT Alkaline Phosphatase Total Creatine Kinase CK-MB (CK-2) CK-MB (CK-2) Rel Index Troponin I NT-Pro-B Natriuret Pep 160 H Total Protein Albumin Globulin Albumin/Globulin Ratio Lipase Nasal Screen MRSA (PCR) COVID-19 PCR 07/27/19 07/28/19 07/28/19 23:00 03:10 03:57 WBC RBC Hgb Hct MCV MCH MCHC RDW Plt Count Neut % (Auto) Lymph % (Auto) [place] % (Auto) Eos % (Auto) Baso % (Auto) Neut # (Auto) Lymph # (Auto) [place] # (Auto) Eos # (Auto) Baso # (Auto) PT INR APTT D-Dimer Sodium 123 L Potassium 3.7 Chloride 90 L Carbon Dioxide 21 L BUN 16 Creatinine 0.81 Estimated GFR > 60.0 BUN/Creatinine Ratio 19.8 Glucose 120 H Calcium 8.5 Total Bilirubin 0.3 AST 32 ALT 23 Alkaline Phosphatase 84 Total Creatine Kinase 161 H CK-MB (CK-2) 1.95 CK-MB (CK-2) Rel Index 1.2 L Troponin I < 0.012 < 0.012 NT-Pro-B Natriuret Pep Total Protein 7.5 Albumin 4.4 Globulin 3.1 Albumin/Globulin Ratio 1.4 Lipase 446 H D Nasal Screen MRSA (PCR) COVID-19 PCR Negative 07/28/19 07/28/19 07/28/19 05:51 05:51 06:52 WBC 6.9 RBC 3.60 L Hgb 11.3 L Hct 32.7 L MCV 90.9 MCH 31.3 MCHC 34.4 RDW 12.7 Plt Count 253 Neut % (Auto) 72.2 Lymph % (Auto) 17.9 L [place] % (Auto) 8.5 Eos % (Auto) 0.8 L Baso % (Auto) 0.6 Neut # (Auto) 5000 Lymph # (Auto) 1200 [place] # (Auto) 600 Eos # (Auto) 100 Baso # (Auto) 0 PT INR APTT D-Dimer Sodium 127 L Potassium 4.0 Chloride 97 L Carbon Dioxide 23 BUN 11 Creatinine 0.70 Estimated GFR > 60.0 BUN/Creatinine Ratio 15.7 Glucose 121 H Calcium 8.3 L Total Bilirubin AST ALT Alkaline Phosphatase Total Creatine Kinase CK-MB (CK-2) CK-MB (CK-2) Rel Index Troponin I < 0.012 NT-Pro-B Natriuret Pep Total Protein Albumin Globulin Albumin/Globulin Ratio Lipase Nasal Screen MRSA (PCR) Negative for mrsa COVID-19 PCR Assessment & Plan Assessment & Plan narrative: 68-year-old female admitted with chest pain with strong family history of coronary artery disease and patient with hypertension hyperlipidemia. Serial CK and troponins have been negative. EKGs have been unrevealing. We will do a stress Mibi. We will continue on 05/28 5 mg aspirin a day. Will continue amlodipine and continue lisinopril. Will consider adding a beta kye. We will stop the nitroglycerin paste which was placed in the ER. Will consult Cardiology potentially. Assessment 2. Abdominal aortic aneurysm Plan: Will continue to follow as outpatient Assessment 3. Thoracic ascending aortic aneurysm Plan will continue follows outpatient I do not think this is contributing To her symptoms. Assessment 4. Hypertension not well controlled at this time. She has received her amlodipine but not the lisinopril we were at the lisinopril. If she is still having elevated blood pressure we will add metoprolol. She will continue aspirin therapy. Assessment 5. Anxiety with side effects on low-dose sertraline Plan: Will stop sertraline and start citalopram 5 mg daily. Assessment 6. Chest pain abdominal pain general vicinity we will rule out pancreatitis will do amylase and lipase and repeat liver function test tomorrow. We will advance her diet. We will continue to monitor Code status is full code COVID-19 testing negative 65 minutes spent with patient in counseling and coordination care
[2019-07-28] MEDS: lisinopriL 20 MG TABLET 40 MG PO (14:09)
[2019-07-28] MEDS: MORPHINE 2 MG/ML INJ IV (16:20)
[2019-07-28] MEDS: LORazepam 1 MG TABLET PO (18:46)
--- NOTE | 2019-07-28 18:49 | DI.ECHO.S_ITS ---
[facility] +---------+ : : [address] : : : : [id number] : : : : Phone: [phone]+ Echocardiogram Report + + :Name: LOBO VIVEROS Study Date: 07/29/2019 Height: 59 in : :[facility] Weight: 110 lb : : Gender: Female BSA: 1.4 m2 : :: 1950 Age: 68 yrs BP: 144/78 mmHg: :Reason For Study: chest pain : :Ordering Physician: Aimee : :Hospitalist Performed By: Yadira Méndez : :Referring: FREDI ALVAREZ : + + Interpretation Summary The ejection fraction is estimated to be 55-60%. There is mild aortic regurgitation. There is mild tricuspid regurgitation. The right ventricular systolic pressure is estimated to be at least 31 mmHg based on an estimated right atrial pressure of 3 mm Hg. The aortic root is moderately dilated. Procedure: A two-dimensional transthoracic echocardiogram with color flow and Doppler was performed. The study quality was technically adequate. There is no prior echocardiogram noted for this patient. The patient was in normal sinus rhythm during the exam. Left Ventricle: The left ventricle is normal in size and wall thickness. The ejection fraction is estimated to be 55-60%. There are no obvious focal wall motion abnormalities noted but poor endocardial definition reduces the sensitivity for the detection of such. Right Ventricle: The right ventricle is normal size. Right ventricular systolic function is at the lower limits of normal. Atria: Both atria are normal in size. There is no Doppler evidence for an interatrial shunt. Mitral Valve: The mitral valve is normal in structure and function. There is no mitral regurgitation noted. Aortic Valve: There is reduced mobilitiy of the non-coronary cusp. There is no aortic valve stenosis. There is mild aortic regurgitation. Tricuspid Valve: The tricuspid valve is normal in structure and function. There is mild tricuspid regurgitation. The right ventricular systolic pressure is estimated to be at least 31 mmHg based on an estimated right atrial pressure of 3 mm Hg. Pulmonic Valve: The pulmonic valve is not well seen, but is grossly normal. There is mild pulmonic regurgitation. Great Vessels: The aortic root is moderately dilated. The ascending aorta is moderately enlarged. The IVC is of normal diameter and collapses greater than 50% with a sniff. This suggests a low right atrial pressure of 3 mm Hg. Pericardium/ Pleura There is no pericardial effusion. There is no pleural effusion. MMode/2D Measurements & Calculations LVIDd: 4.2 cm LVOT diam: 2.1 cm LVIDs: 3.0 cm Ao root diam: 3.8 cm FS: 28.9 % asc Aorta Diam: 4.1 cm EPSS: 0.88 cm Ao Arch Diam (Prox Trans): 3.0 cm IVSd: 1.0 cm LVPWd: 0.88 cm LV valle. diameter/BSA (cm/m^2): 2.9 LV sys. diameter/BSA (cm/m^2): 2.1 LA A2 area: 10.9 cm2 RA long axis: 4.7 cm LA A4 area: 12.7 cm2 RA area: 10.5 cm2 LA length (vol): 4.7 cm RA vol: 19.8 ml LA vol: 24.8 ml RA : 13.9 ml/m2 LA vol index: 17.4 ml/m2 IVC diam: 1.2 cm RVD1 (basal): 2.3 cm TAPSE: 1.7 cm Doppler Measurements & Calculations Ao V2 max: 148.4 cm/sec AI P1/2t: 490.6 msec Ao V2 mean: 93.1 cm/sec AI dec slope: 253.2 cm/sec2 Ao max P.8 mmHg Ao mean P.2 mmHg Ao V2 VTI: 26.1 cm MV E max orion: 50.6 cm/sec TR max orion: 210.9 cm/sec MV A max orion: 88.9 cm/sec TR max P.8 mmHg MV E/A: 0.57 PA V2 max: 91.4 cm/sec Med Peak E' Orion: 4.9 cm/sec PA V2 mean: 65.0 cm/sec E/E' med: 10.2 PA mean P.9 mmHg Lat Peak E' Orion: 8.1 cm/sec E/E' lat: 6.3 E/e' average: 8.2 MV dec time: 0.29 sec Reading Physician:01:06 PM
[2019-07-28] MEDS: CITALOPRAM 10 MG TABLET 5 MG PO (21:35)
[2019-07-29 01:23] VITALS: BP 96/61; PULSE 60; RESP 20; TEMP 36.4; O2SAT 100
[2019-07-29 04:34] VITALS: BP 124/67; PULSE 70; RESP 18; TEMP 35.9; O2SAT 98
[2019-07-29 05:06] LABS: Add Manual Diff / Slide Review NO; Basophils Absolute Auto 0 /uL (0-100); Basophils Percent Auto 0.8 % (0-2); Eosinophils Absolute Auto 200 /uL (0-450); Eosinophils Percent Auto 2.7 % (2-4); Hematocrit 31.9 % (36-46); Hemoglobin 11.1 g/dL (12.0-16.0); Lymphocytes Absolute Auto 1600 /uL (1100-4500); Lymphocytes Percent Auto 29.1 % (25-40); Mean Corpuscular HGB Conc 34.9 % (30-36); Mean Corpuscular Hemoglobin 32.2 PG (26-34); Mean Corpuscular Volume 92.3 fL (80-100); Monocytes Absolute Auto 500 /uL (0-900); Monocytes Percent Auto 8.3 % (3-14); Neutrophils Absolute Auto 3300 /uL (1500-7000); Neutrophils Percent Auto 59.1 % (50-75); Platelet Count 239 X10^3/uL (150-400); Red Blood Cell Count 3.45 X10^6/uL (4.0-5.2); Red Cell Distribution Width 13.1 % (11.6-14.8); White Blood Cell Count 5.5 X10^3/uL (4.5-11.0)
[2019-07-29 05:14] LABS: Amylase 130 U/L (30-110); Lipase 336 U/L (23-300)
[2019-07-29 05:16] LABS: Alanine Aminotransferase 18 IU/L (<35); Albumin 3.4 g/dL (3.5-5.0); Albumin Globulin Ratio 1.2 (1.0-2.8); Alkaline Phosphatase 71 U/L (38-126); Aspartate Aminotransferase 23 IU/L (14-36); BUN Creatinine Ratio 20.7 (6-22); Bilirubin Total 0.3 mg/dL (0.2-1.3); Blood Urea Nitrogen 18 mg/dL (7-17); Calcium 8.6 mg/dL (8.4-10.2); Carbon Dioxide 24 mmol/L (22-32); Chloride 100 mmol/L (98-107); Estimated Glomerular Filt Rate > 60.0 mL/min (>60); Globulin 2.8 g/dL (1.7-4.1); Glucose 132 mg/dL (80-110); HEMOLYSIS < 15 (0-50); Potassium 3.8 mmol/L (3.4-5.1); Sodium 133 mmol/L (137-145); Total Protein 6.2 g/dL (6.3-8.2)
[2019-07-29 07:33] VITALS: BP 102/56; PULSE 66; RESP 16; TEMP 37.3; O2SAT 99
--- NOTE | 2019-07-29 09:20 | PM.TREADMILL ---
Cardiac Stress Test Report Referral & Results Date Patient Seen: 07/29/19 Time Patient Seen: 09:20 Requesting provider: Rona Mckinley Indication: chest pain Rest ECG: Normal sinus rhythm Procedure Note: Test changed to Lexiscan for safety reasons; patient was unable to keep up with treadmil. After Lexiscan injection had no dyspnea or chest discomfort No significant ST changes after injection Occasional PVCs and rare couplets No reversal agents needed Impression: Normal Pharmacological stress test Nuclear images pending Please note: Actual ECG tracings can be found in the PACS system.
[2019-07-29] MEDS: SODIUM CHLORIDE 0.9% FLUSH 10 ML IV (10:29)
[2019-07-29] MEDS: ASPIRIN EC 325 MG TABLET PO (10:29)
[2019-07-29] MEDS: AMLODIPINE 5 MG TABLET 10 MG PO (10:29)
[2019-07-29] MEDS: ATORVASTATIN 20 MG TABLET PO (10:29)
[2019-07-29] MEDS: lisinopriL 20 MG TABLET 40 MG PO (10:29)
[2019-07-29] MEDS: ACETAMINOPHEN 325 MG TABLET 650 MG PO (10:32)
[2019-07-29 11:07] VITALS: RESP 16
[2019-07-29 11:21] VITALS: BP 105/77; PULSE 81; RESP 16; TEMP 36.9; O2SAT 97
--- NOTE | 2019-07-29 13:27 | P.PN_ITS ---
Subjective Subjective Date Patient Seen: 07/29/19 Time Patient Seen: 13:27 Interval history: Patient is feeling much better. She denies any further chest pain. She is intermittently having a headache. She had her stress Mibi today and there is no evidence of ischemia. There were no abnormalities. She had an echo today which was normal as well. She is eating normally and not having significant abdominal pain and no change in her bowel function She did take her for citalopram yesterday. She is not feeling dizzy Review of systems is negative other than above Exam Vital Signs (past 8 hours): - 07/29/19 07:33 07/29/19 11:07 07/29/19 11:21 Temperature 99.2 F 98.4 F Pulse Rate 66 81 Respiratory Rate 16 16 16 Blood Pressure 102/56 L 105/77 Pulse Oximetry 99 97 Oxygen Delivery Method Room Air Oxygen Flow Rate 0 Narrative Exam Narrative: Afebrile vital signs are stable HEENT unremarkable Neck is supple without adenopathy Chest: Clear to auscultation without wheezes rhonchi or crackles Cor: Regular rate and rhythm without ectopy with distant S1-S2 Extremities: No edema, pulses intact Abdomen: Positive bowel sound x4 Neurologic exam nonfocal Skin exam shows no rash Objective Labs Result Diagrams: 07/29/19 04:45 07/29/19 04:45 Labs: Laboratory Results - last 24 hr 07/29/19 07/29/19 07/29/19 04:45 04:45 04:45 WBC 5.5 RBC 3.45 L Hgb 11.1 L Hct 31.9 L MCV 92.3 MCH 32.2 MCHC 34.9 RDW 13.1 Plt Count 239 Neut % (Auto) 59.1 Lymph % (Auto) 29.1 [place] % (Auto) 8.3 Eos % (Auto) 2.7 Baso % (Auto) 0.8 Neut # (Auto) 3300 Lymph # (Auto) 1600 [place] # (Auto) 500 Eos # (Auto) 200 Baso # (Auto) 0 Sodium 133 L Potassium 3.8 Chloride 100 Carbon Dioxide 24 BUN 18 H Creatinine 0.87 Estimated GFR > 60.0 BUN/Creatinine Ratio 20.7 Glucose 132 H Calcium 8.6 Total Bilirubin 0.3 AST 23 ALT 18 Alkaline Phosphatase 71 Total Protein 6.2 L Albumin 3.4 L Globulin 2.8 Albumin/Globulin Ratio 1.2 Amylase 130 H Lipase 336 H Assessment & Plan Assessment & Plan narrative: 68-year-old female admitted for chest pain who was ruled out for acute myocardial infarction. Patient has had multiple ER visits and a stress Mibi was performed and there was no evidence of ischemia. The echo was normal. It is suspected that the chest pain is atypical. She may have had some mild pancreatitis though her CT scan was normal and she had mild elevation in her amylase and lipase. This is improved. Clinically she has improved. We will discharge home in stable condition She will follow-up with me in 1 week or sooner with concerns Discharge medications will include her outpatient regimen 40 mg daily of lisinopril and amlodipine 5 mg daily. Her blood pressure is a little bit lower today but she will monitor it and we will see when we see her back in a week she will call with concerns. She will continue with aspirin therapy. 2. Anxiety I suspect that this is the likely culprit in lieu of the fact we have ruled out other potential etiologies. She will stop the sertraline. She will continue on the citalopram 5 mg daily and I will send a prescription to the [facility]. I will see her back Next week . 3. Elevated lipase and amylase with normal abdominal CT of the pancreas. This could cause some of her symptoms that she is having however it is unclear. At this point she will call with recurrent symptoms. We will recheck amylase and lipase in 1 week or sooner with concerns. If she continues to have symptoms are elevations we will do further workup including possible ADD Assessment number for UTI that was diagnosed on July 24 when she came to the emergency room. She has not received antibiotics while in the hospital. We will have her finish the course of nitrofurantoin that she has at home.
--- NOTE | 2019-07-29 13:34 | P.DS_ITS ---
History of Present Illness History of Present Illness Chief complaint: Chest Pain and SOB Narrative: This pleasant 68-year-old female is well known to me. She has been going through a several month history of chest pain has been to the emergency department multiple times with negative EKG and negative cardiac enzymes. She has a stress may be scheduled for August 06. It was felt that she had anxiety that was certainly contributing and she was started on sertraline a few weeks ago in the clinic. She feels that it makes her dizzy. She is only taking 12.5 mg daily. She is having anxiety. She is having anterior chest discomfort located left anterior as well as bilateral lower rib. She underwent CT scan of the chest abdomen and pelvis. There was a questionable bowel ileus but she is stooling today and is on clear liquids and is tolerating them well and is actually hungry. She also was found to have a small abdominal aortic aneurysm and a thoracic ascending aneurysm. The emergency room physician discussed this with vascular surgery as well as thoracic surgery at [facility]. They did not feel that these findings were related to her pain. Patient has previously been diagnosed with abdominal aortic aneurysm. This is been followed. It has not changed. There was no evidence of leaking. She also has an aneurysm of the common iliac artery. Patient did not sleep well last night. She did have significant symptoms with nitro glycerin which was given in the ER she had a severe headache as well as hypotension and she still has a headache. She was just given Tylenol. Past medical history: 1. Hyponatremia 2. Hyperlipidemia 3. Hypertension 4. Peptic ulcer Disease 5. Osteoporosis 6. Allergic rhinitis 7. Abdominal aortic aneurysm 8. Common iliac aneurysm 9. Hyperglycemia 10. Probable anxiety 11. Thyroid nodule 12. Lumbar radiculopathy Past surgical history: Appendectomy November 2016 Lens implant Family history Father with hypertension, acute myocardial infarction and at 72 Mother hypertension at 45 an acute myocardial infarction Patient has 9 siblings they are all healthy some with hypertension but none with coronary artery disease Patient has 3 children that are healthy Maternal grandmother at 75 from complications of diabetes Health through the behavior: Patient does not smoke and never has an irregular basis Patient does not use alcohol on a regular basis Patient is fairly active Social history patient is she is 1978. She is retired [employer] for almost 25 years she has 2 grown boys and a grown daughter Review of systems is negative other than above No current reflux symptoms No and intentional weight loss or weight gain She has been anxious and worried She denies depression She denies palpitations She denies exertional dyspnea She denies lower Extremity edema she denies change in bowel movements. She denies abdominal pain. Discharge Providers Provider Date of admission: 07/28/19 02:53 Discharge Date: 07/29/19 Primary care physician: Patricia Tamayo MD Discharge provider: Patricia Tamayo MD Summary Hospital Course Discharge Diagnosis: Chest pain, ruled out coronary artery disease or evidence of outflow obstruction with normal stress may be an echo Hypertension stable UTI Elevated lipase improved, negative CT scan of the abdomen Hospital Course: 60 minutes was spent with patient in coordination admitting with patient and formulating plan for discharge. Patient was admitted to the hospital with chest pain and admitted for rule out acute myocardial infarction. Serial CK and troponins were negative. She underwent stress may be on hospital day 2. Which was negative for coronary artery disease and was entirely normal scan. An echo was done that was normal as well. Patient's symptoms resolved. Patient had a CT scan of her chest abdomen and pelvis on admit which showed unchanged ectatic thoracic aortic aneurysm as well as unchanged small abdominal aortic aneurysm and consultation with vascular surgery and thoracic surgery did not feel that this was the culprit and her chest pain. She therefore was admitted. She was given nitroglycerin with hypotension and headache in the ER. They gave her nitro paste. This was discontinued on hospital day 1. She did not have further symptoms of chest pain. Her amylase and lipase were minimally elevated on discharge. She was eating oral intake. She is having normal bowel movements. She was having no further abdominal or chest pain. She was ready to go home. Patient was discharged home in stable condition Follow-up with me next week Continue Macrobid that have prescribed on July 24 Stop sertraline and start citalopram 5 mg daily Continue all other outpatient medications Will follow-up with aneurysms as recommended. Will control blood pressure Status at Discharge Cognitive/behavioral status at discharge: oriented Functional status at discharge: independent ambulation Overall status at discharge: patient is back to baseline Exam Vital Signs (past 8 hours): - 07/29/19 07:33 07/29/19 11:07 07/29/19 11:21 Temperature 99.2 F 98.4 F Pulse Rate 66 81 Respiratory Rate 16 16 16 Blood Pressure 102/56 L 105/77 Pulse Oximetry 99 97 Oxygen Delivery Method Room Air Oxygen Flow Rate 0 Narrative Exam Narrative: Afebrile vital signs are stable HEENT unremarkable Neck is supple Chest: Clear to auscultation without wheezes rhonchi or crackles Cor: Regular rate and rhythm without murmur rubs or gallops Abdomen: Positive bowel sounds soft nontender nondistended Extremities no edema, pulses intact Neurologic exam nonfocal Skin no rashes Objective Labs Result Diagrams: 07/29/19 04:45 07/29/19 04:45 Labs: Laboratory Results - last 24 hr 07/29/19 07/29/19 07/29/19 04:45 04:45 04:45 WBC 5.5 RBC 3.45 L Hgb 11.1 L Hct 31.9 L MCV 92.3 MCH 32.2 MCHC 34.9 RDW 13.1 Plt Count 239 Neut % (Auto) 59.1 Lymph % (Auto) 29.1 [place] % (Auto) 8.3 Eos % (Auto) 2.7 Baso % (Auto) 0.8 Neut # (Auto) 3300 Lymph # (Auto) 1600 [place] # (Auto) 500 Eos # (Auto) 200 Baso # (Auto) 0 Sodium 133 L Potassium 3.8 Chloride 100 Carbon Dioxide 24 BUN 18 H Creatinine 0.87 Estimated GFR > 60.0 BUN/Creatinine Ratio 20.7 Glucose 132 H Calcium 8.6 Total Bilirubin 0.3 AST 23 ALT 18 Alkaline Phosphatase 71 Total Protein 6.2 L Albumin 3.4 L Globulin 2.8 Albumin/Globulin Ratio 1.2 Amylase 130 H Lipase 336 H Discharge Plan Discharge Plan Patient Disposition: Home Discharge orders & Medications Prescriptions: Continued aspirin 81 MG tablet,delayed release (DR/EC) 162 mg PO QDAY Qty: 0 RF: 0 calcium carbonate-vitamin D3 [Oyster Shell Calcium-Vit D3] 500 MG/200 IU tablet 1 tab PO BID Qty: 0 RF: 0 epinephrine [EpiPen 2-Damaso] 0.3 mg/0.3 mL auto-injector 0.3 mg IM Q30M PRN (Reason: anaphylaxis) Qty: 2 RF: 0 lisinopril 40 mg tablet 40 mg PO DAILY RF: 0 nitrofurantoin macrocrystal 100 mg capsule 100 mg PO BID 5 Days Qty: 10 RF: 0 atorvastatin 20 mg tablet 20 mg PO DAILY RF: 0 amlodipine 5 mg tablet 5 mg PO DAILY RF: 0 famotidine 20 mg tablet 20 mg PO BID RF: 0 olopatadine 0.1 % drops 1 drp ophthalmic (eye) DIRECTED RF: 0 acetaminophen 325 MG tablet 650 mg PO Q4HP PRN (Reason: pain) RF: 0 fluticasone propionate 50 mcg/actuation spray,suspension 1 spray intranasal DAILY PRN (Reason: Allergy Symptoms) RF: 0 ibuprofen 400 MG tablet 400 mg PO Q6HP PRN (Reason: pain) RF: 0 calcium carbonate [Tums] 200 mg calcium (500 mg) Tablet,Chewable 200 mg PO QID RF: 0 Follow up/Referrals: Patricia Tamayo MD [Primary Care Provider] - Discharge Health Status Multidrug resistant organism: No MDRO Diet/Activity/Treatments Diet: Diet as Tolerated Visit Report/Discharge Packet Visit Report Forms: Patient Portal/API, Stroke Signs & Symptoms Discharge Data Primary Care Provider: Patricia Tamayo Attending Provider: Rona Mckinley Admit Date/Time: 07/28/19 02:53
--- NOTE | 2019-07-29 14:19 | PC.NURSE ---
PT C/O OF VAGUE HEADACHE THROUGHOUT SHIFT - MEDICATED WITH TYLENOL - STRESS TEST COMPLETED AND WAS STABLE AND NO MED CHANGES- DID REVIEW RX WITH PT AND REITERATED TO HER SPOUSE THE FACT THAT SHE NEEDED TO RESTART ABX THERAPY FOR UTI- PREPARING TO DC AT THIS TIME
--- NOTE | 2019-07-29 15:50 | CM.DPC ---
DCP Discharge Home Per MD, pt is medically stable to d/c home today as stress test and Echo complete and no need to stay in the hospital. No identified barriers to discharge. Plan: Patient to d/c home via spouse POV and no SW needs at this time. JCAQUELIN Berrios
--- NOTE | 2019-07-30 05:10 | DI.NM.S_ITS ---
DATE OF SERVICE: 07/28/2019 PROCEDURE PERFORMED: Stress and rest exercise treadmill, converted to pharmacologic stress, perfusion study with gating to assess ejection fraction and regional wall motion. INDICATIONS: The patient is a 68-year-old female admitted with atypical chest and abdominal discomfort. EXERCISE TREADMILL/PHARMACOLOGIC TESTING: The patient was initially stressed by a treadmill but was converted to pharmacologic stress when she was unable to keep with the treadmill. With infusion of 0.4 mg of regadenoson, augmented by walking, she had a normal hemodynamic response and denied any chest discomfort. Her resting ECG shows sinus rhythm with occasional PACs. With stress, she had occasional PVCs with one couplet, but no other concerning ectopy. There were no significant ST-segment shifts to suggest ischemia. Per protocol, she was injected with 26.1 mCi of technetium-99m Myoview and was imaged 15 minutes later. The previous day, she had been injected with 22.4 mCi of technetium-99m Myoview at rest and imaged 30 minutes later, again using a gated SPECT acquisition protocol. FINDINGS: RAW DATA: There is good myocardial tracer uptake with minimal breast shadows noted. Lung heart ratio was normal at 0.36 with a normal TID ratio of 0.4. QUANTITATED GATED SPECT: Post-stress ejection fraction is estimated at 95%, likely an overestimate due to relatively small left ventricular volumes. The resting ejection fraction is 94% with a resting end-diastolic volume of 54 mL. There were no focal wall motion abnormalities. MYOCARDIAL PERFUSION IMAGING: Post-stress supine images show a normal myocardial perfusion pattern without any perfusion defects, supported by normal perfusion imaging in the prone position. The resting images show an identical perfusion pattern without any areas of improvement. CONCLUSION: 1. Normal myocardial perfusion study. 2. No evidence for myocardial ischemia or previous myocardial infarction. 3. High left ventricular systolic function with an over-estimated ejection fraction due to small left ventricular volumes. There are no focal wall motion abnormalities. 4. No angina or ECG with exercise or pharmacologic stress. There were no significant ST-segment abnormalities and only occasional PVCs, rarely in couplets, noted. Wen Marsh - RS/fn/cs doc#: [id number]/job#: [id number] dd: 07/29/2019 18:02:00 dt: 07/30/2019 04:56:00 DICTATING MD/COPIES TO: Emanuel Muniz MD; Patricia Tamayo MD COPIES MNE: SAIMA;
== END 2019-07-29 14:40 | disposition home or self-care (01) ==
LOC: ED 07-28 02:42 → AC 07-28 02:55 → ICU 07-28 05:19
PROVIDERS: Admitting Provider Student in an Organized Health Care Education/Training Program; Emergency Provider Emergency Medicine; PCP Family Medicine; Visit Provider Student in an Organized Health Care Education/Training Program
DX: R07.9 Chest pain, unspecified (principal); M25.511 Pain in right shoulder; R10.9 Unspecified abdominal pain; R11.0 Nausea; R51 Headache; I10 Essential (primary) hypertension; E78.5 Hyperlipidemia, unspecified; F41.9 Anxiety disorder, unspecified; I71.4 Abdominal aortic aneurysm, without rupture; N39.0 Urinary tract infection, site not specified; Z11.59 Encounter for screening for other viral diseases
CPT/HCPCS: 36415; 71045; 71275; 74174; 78452; 80048; 80053; 82150; 82550; 82553; 83690; 83880; 84484; 85025; 85379; 85610; 85730; 87635; 87797; 93005; 93017; 93306; 96361; 96374; 96375; 99285; 99291; G0378; A9502; C9113; J2270; J2785; Q9967

== ENCOUNTER 2019-07-30 07:46 | Emergency (ER) | payer MEDICARE, OTHER, SELFPAY ==
[2019-07-28 05:28] VITALS: BMI 22.2
[2019-07-30 07:50] VITALS: BP 155/82; PULSE 80; RESP 14; TEMP 37.1; O2SAT 100; BMI 23.6
--- NOTE | 2019-07-30 07:58 | ED.GENADULT ---
HPI - General Adult General Chief complaint: Neuro Symptoms/Deficit Stated complaint: Shortness of breath, face is numb Time Seen by Provider: 07/30/19 07:50 Source: patient and family Mode of arrival: Ambulatory Limitations: no limitations History of Present Illness HPI narrative: 68-year-old female here for her 3rd visit in the past week. Was admitted to the hospital during her 2nd visit in just discharged yesterday. During that visit she had a fairly extensive cardiac workup to include a nuclear stress test and echocardiogram. I reviewed both of these and they are relatively unremarkable. She states that she woke up this morning having intermittent chest pain associated with shortness of breath. She states this is the same chest pain and shortness of breath that she has had over the past week and for which she was admitted to the hospital and had the stress test and echocardiogram for. She also states that her entire face is occasionally numb. The time of my exam she states that she is not having this particular symptom. She also describes bilateral feet numbness. Again not currently having the symptoms the time of my evaluation. She did take her morning medications. Has a follow-up appointment with her primary doctor next Saturday. Related Data Home Medications Medication Instructions Recorded Confirmed aspirin 162 mg PO QDAY #0 01/20/17 07/28/19 calcium carbonate-vitamin D3 1 tab PO BID #0 01/20/17 07/28/19 [Oyster Shell Calcium-Vit D3] acetaminophen 650 mg PO Q4HP PRN 09/26/18 07/28/19 amlodipine 5 mg PO DAILY 09/26/18 07/28/19 atorvastatin 20 mg PO DAILY 09/26/18 07/28/19 famotidine 20 mg PO BID 09/26/18 07/28/19 fluticasone propionate 1 spray INTRANASAL DAILY PRN 09/26/18 07/28/19 ibuprofen 400 mg PO Q6HP PRN 09/26/18 07/28/19 olopatadine 1 drp OPHTHALMIC (EYE) DIRECTED 09/26/18 07/28/19 lisinopril 40 mg PO DAILY 04/14/19 07/28/19 calcium carbonate [Tums] 200 mg PO QID 07/28/19 07/28/19 Previous Rx's Medication Instructions Recorded epinephrine [EpiPen 2-Damaso] 0.3 mg IM Q30M PRN #2 each 10/02/17 nitrofurantoin macrocrystal 100 mg PO BID 5 Days #10 cap 07/27/19 Allergies Allergy/AdvReac Type Severity Reaction Status Date / Time No Known Drug Allergies Allergy Verified 07/30/19 08:07 Review of Systems Constitutional Constitutional: Denies fatigue, Denies fever(s) and Denies headache(s) Eyes Eyes: Denies change in vision ENT Ears, Nose, Mouth, and Throat: Denies vertigo, Denies dizziness, Denies facial pain, Denies headache(s), Denies neck pain, Denies disequilibrium and Denies sore throat Comments: Tingling in face Cardiovascular Cardiovascular: Reports chest pain and Reports dyspnea Respiratory Respiratory: Reports dyspnea Gastrointestinal Gastrointestinal: Denies abdominal pain, Denies nausea and Denies vomiting Musculoskeletal Musculoskeletal: Denies neck pain and Reports tingling Comments: Tingling in feet Neurologic Neurologic: Denies vertigo, Denies dizziness, Denies headache(s), Reports tingling and Denies disequilibrium Endocrine Endocrine: Denies fatigue Hematologic/Lymphatic Hematologic/Lymphatic: Denies easy bleeding and Denies easy bruising Patient History Medical History Dyslipidemia (Chronic) Hypertension (Chronic) Social History marital status: household members: spouse Smoking Status: Never smoker alcohol intake: never substance use type: does not use Smoking Status: Never smoker alcohol intake frequency: 0-2 drinks per day Substance Use Type: does not use Exam Initial Vital Signs Initial Vital Signs: Vital Signs Temperature 98.8 F 07/30/19 07:50 Pulse Rate 80 07/30/19 07:50 Respiratory Rate 14 07/30/19 07:50 Blood Pressure 155/82 H 07/30/19 07:50 Pulse Oximetry 100 07/30/19 07:50 Const General: cooperative, comfortable and well developed Limitations: mental status not altered HENHI Head: normal to inspection and normocephalic Chest Chest: No crepitus and No tenderness Resp Effort & Inspection: normal respiratory effort Auscultation: clear to auscultation bilaterally Cardio Rate: regular rate Skin Lesions: no lesions Rashes: no rashes Neuro General: alert, awake and oriented x3 Cranial Nerves: CN's II-XI intact bilaterally Cognition: normal cognition Speech: speech normal Gait: normal gait Motor: muscle tone normal throughout Sensory Exam: no sensory deficits noted Extrem General: normal to inspection and capillary refill normal Psych Appearance: grossly normal and well kempt Course Orders Ordered: ED Orders 07/30/19 07:59 EKG-12 Lead Stat 07/30/19 08:05 Urine Microscopic Stat 07/30/19 08:15 Complete Blood Count AUTO DIFF Stat Comprehensive Metabolic Panel Stat Lipase Stat Partial Thromboplastin Time Stat Prothrombin Time INR Stat Troponin I Stat 07/30/19 08:36 EKG-12 Lead Stat Vital Signs Vital signs: Vital Signs - 8 hr 07/30/19 07:50 07/30/19 08:20 07/30/19 08:37 Temperature 98.8 F Pulse Rate 80 77 83 Respiratory Rate 14 18 16 Blood Pressure 155/82 H Blood Pressure [Left Arm] 128/72 Blood Pressure [Right Arm] 132/78 162/85 H Pulse Oximetry 100 99 97 07/30/19 09:09 07/30/19 09:37 Temperature Pulse Rate 82 79 Respiratory Rate 16 17 Blood Pressure Blood Pressure [Left Arm] 133/69 Blood Pressure [Right Arm] 156/86 H Pulse Oximetry 99 100 Medical Decision Making Medical Records Medical records reviewed: Yes I reviewed the patient's medical records. Lab Data Lab results reviewed: Yes I reviewed the patient's lab results. Result diagrams: 07/30/19 08:15 07/30/19 08:15 Labs: Lab Results 07/30/19 07/30/19 07/30/19 Range/Units 08:05 08:15 08:15 WBC 5.5 (4.5-11.0) X10^3/uL RBC 3.59 L (4.0-5.2) X10^6/uL Hgb 11.4 L (12.0-16.0) g/dL Hct 32.9 L (36-46) % MCV 91.6 (80-100) fL MCH 31.9 (26-34) PG MCHC 34.8 (30-36) % RDW 12.8 (11.6-14.8) % Plt Count 278 (150-400) X10^3/uL Neut % (Auto) 73.4 (50-75) % Lymph % (Auto) 17.6 L (25-40) % [place] % (Auto) 7.1 (3-14) % Eos % (Auto) 1.0 L (2-4) % Baso % (Auto) 0.9 (0-2) % Neut # (Auto) 4100 (7783-3634) /uL Lymph # (Auto) 1000 L (8443-8993) /uL [place] # (Auto) 400 (0-900) /uL Eos # (Auto) 100 (0-450) /uL Baso # (Auto) 0 (0-100) /uL PT 10.6 (10.1-12.7) SECONDS INR 0.9 (0.9-1.3) APTT 30 (26.4-36.2) SECONDS Sodium (137-145) mmol/L Potassium (3.4-5.1) mmol/L Chloride (98-107) mmol/L Carbon Dioxide (22-32) mmol/L BUN (7-17) mg/dL Creatinine (0.52-1.04) mg/dL Estimated GFR (>60) mL/min BUN/Creatinine Ratio (6-22) Glucose (80-110) mg/dL Calcium (8.4-10.2) mg/dL Total Bilirubin (0.2-1.3) mg/dL AST (14-36) IU/L ALT (<35) IU/L Alkaline Phosphatase (38-126) U/L Troponin I (0.01-0.034) ng/mL Total Protein (6.3-8.2) g/dL Albumin (3.5-5.0) g/dL Globulin (1.7-4.1) g/dL Albumin/Globulin Ratio (1.0-2.8) Lipase (23-300) U/L Urine RBC 0-1/hpf (0-5/HPF) Urine WBC 0-1/hpf (0-5/HPF) Ur Squamous Epith Cells 1-5 /hpf (0-5/HPF) Urine Bacteria None seen (None) Ur Culture Indicated? Cult not indicated 07/30/19 Range/Units 08:15 WBC (4.5-11.0) X10^3/uL RBC (4.0-5.2) X10^6/uL Hgb (12.0-16.0) g/dL Hct (36-46) % MCV (80-100) fL MCH (26-34) PG MCHC (30-36) % RDW (11.6-14.8) % Plt Count (150-400) X10^3/uL Neut % (Auto) (50-75) % Lymph % (Auto) (25-40) % [place] % (Auto) (3-14) % Eos % (Auto) (2-4) % Baso % (Auto) (0-2) % Neut # (Auto) (7495-3856) /uL Lymph # (Auto) (3700-1666) /uL [place] # (Auto) (0-900) /uL Eos # (Auto) (0-450) /uL Baso # (Auto) (0-100) /uL PT (10.1-12.7) SECONDS INR (0.9-1.3) APTT (26.4-36.2) SECONDS Sodium 131 L (137-145) mmol/L Potassium 3.8 (3.4-5.1) mmol/L Chloride 98 (98-107) mmol/L Carbon Dioxide 27 (22-32) mmol/L BUN 14 (7-17) mg/dL Creatinine 0.61 (0.52-1.04) mg/dL Estimated GFR > 60.0 (>60) mL/min BUN/Creatinine Ratio 23.0 H (6-22) Glucose 123 H (80-110) mg/dL Calcium 8.9 (8.4-10.2) mg/dL Total Bilirubin 0.4 (0.2-1.3) mg/dL AST 29 (14-36) IU/L ALT 21 (<35) IU/L Alkaline Phosphatase 88 (38-126) U/L Troponin I < 0.012 (0.01-0.034) ng/mL Total Protein 7.2 (6.3-8.2) g/dL Albumin 4.2 (3.5-5.0) g/dL Globulin 3.0 (1.7-4.1) g/dL Albumin/Globulin Ratio 1.4 (1.0-2.8) Lipase 361 H (23-300) U/L Urine RBC (0-5/HPF) Urine WBC (0-5/HPF) Ur Squamous Epith Cells (0-5/HPF) Urine Bacteria (None) Ur Culture Indicated? Urine Dip Bedside Urine Glucose Negative Bedside Urine Bilirubin - Negative Bedside Urine Ketone - Negative Urine Specific [place] 1.015 Bedside Urine Occult Blood + Bedside Urine pH 6.0 Bedside Urine Protein - Negative Bedside Urine Urobilinogen - Negative Bedside Urine Nitrite - Negative Bedside Urine Leukocytes + 70 Esterase Point of care testing: Urine Dip Bedside Urine Glucose Negative Bedside Urine Bilirubin - Negative Bedside Urine Ketone - Negative Urine Specific [place] 1.015 Bedside Urine Occult Blood + Bedside Urine pH 6.0 Bedside Urine Protein - Negative Bedside Urine Urobilinogen - Negative Bedside Urine Nitrite - Negative Bedside Urine Leukocytes + 70 Esterase ECG Data Attestation: I personally reviewed and interpreted this ECG as follows: Prior ECG tracings: available for review Interpretation: Sinus rhythm Ventricular rate is 79 First degree AV block Left axis deviation Nonspecific ST T wave changes Repeat EKG Sinus rhythm Ventricular rate 84 First degree AV block Left axis deviation Nonspecific ST T wave changes Both of these EKGs very similar to EKG earlier this week. MDM Narrative Medical decision making narrative: Patient had no objective findings on my exam today. Her EKG today were unchanged and were also very similar to EKGs from earlier this week. She was just recently admitted to our hospital here where she had a nuclear stress test which was negative for ischemia and also had an echocardiogram which was relatively unremarkable. Was discharged home yesterday. Her physical exam today is not consistent with a CVA. I reviewed the notes from her last visit and does appear that the admitting provider thought that there was a large anxiety component to her symptoms. I did discuss the case with her primary provider who agreed that there was a large anxiety component. The plan was that time for her to stop the sertraline and start Citalopram. This was confirmed again today by talking with her primary provider. The feel is safe discharging the patient home. She already has a follow-up with her primary next Saturday. Discharge patient home to keep this follow-up. They were given return precautions. Discharge Plan Departure Patient Disposition: Home Clinical Impression: Atypical chest pain, Facial paresthesia Instructions: DI for Atypical Chest Pain Activity Restrictions/Additional Instructions: Your labs and EKG is today were unremarkable. I did discuss your case with Dr. Tamayo. She would like you to keep her follow-up appointment that is already scheduled next week. She would also like you to stop taking your sertraline and start taking a medicine called Citalopram. She electronically transmitted this medicine to the [facility] pharmacy and should be available for shrimp picker upon your discharge from the emergency department.. Prescriptions: No Action aspirin 81 MG tablet,delayed release (DR/EC) 162 mg PO QDAY Qty: 0 RF: 0 calcium carbonate-vitamin D3 [Oyster Shell Calcium-Vit D3] 500 MG/200 IU tablet 1 tab PO BID Qty: 0 RF: 0 epinephrine [EpiPen 2-Damaso] 0.3 mg/0.3 mL auto-injector 0.3 mg IM Q30M PRN (Reason: anaphylaxis) Qty: 2 RF: 0 lisinopril 40 mg tablet 40 mg PO DAILY RF: 0 nitrofurantoin macrocrystal 100 mg capsule 100 mg PO BID 5 Days Qty: 10 RF: 0 atorvastatin 20 mg tablet 20 mg PO DAILY RF: 0 amlodipine 5 mg tablet 5 mg PO DAILY RF: 0 famotidine 20 mg tablet 20 mg PO BID RF: 0 olopatadine 0.1 % drops 1 drp ophthalmic (eye) DIRECTED RF: 0 acetaminophen 325 MG tablet 650 mg PO Q4HP PRN (Reason: pain) RF: 0 fluticasone propionate 50 mcg/actuation spray,suspension 1 spray intranasal DAILY PRN (Reason: Allergy Symptoms) RF: 0 ibuprofen 400 MG tablet 400 mg PO Q6HP PRN (Reason: pain) RF: 0 calcium carbonate [Tums] 200 mg calcium (500 mg) Tablet,Chewable 200 mg PO QID RF: 0 Referrals: Patricia Tamayo MD [Primary Care Provider] -
[2019-07-30 08:15] LABS: Bacteria Urine None Seen
[2019-07-30 08:20] VITALS: BP 128/72; BP 132/78; PULSE 77; RESP 18; O2SAT 99
[2019-07-30 08:30] LABS: Culture Indicated Urine Cult Not Indicated; RBC Urine 0-1/HPF (0-5/HPF); Squamous Epithelial Cell Urine 1-5 /HPF (0-5/HPF); WBC Urine 0-1/HPF (0-5/HPF)
[2019-07-30 08:35] LABS: Add Manual Diff / Slide Review NO; Basophils Absolute Auto 0 /uL (0-100); Basophils Percent Auto 0.9 % (0-2); Eosinophils Absolute Auto 100 /uL (0-450); Hematocrit 32.9 % (36-46); Hemoglobin 11.4 g/dL (12.0-16.0); Lymphocytes Absolute Auto 1000 /uL (1100-4500); Lymphocytes Percent Auto 17.6 % (25-40); Mean Corpuscular HGB Conc 34.8 % (30-36); Mean Corpuscular Hemoglobin 31.9 PG (26-34); Mean Corpuscular Volume 91.6 fL (80-100); Monocytes Absolute Auto 400 /uL (0-900); Monocytes Percent Auto 7.1 % (3-14); Neutrophils Absolute Auto 4100 /uL (1500-7000); Neutrophils Percent Auto 73.4 % (50-75); Platelet Count 278 X10^3/uL (150-400); Red Blood Cell Count 3.59 X10^6/uL (4.0-5.2); Red Cell Distribution Width 12.8 % (11.6-14.8); White Blood Cell Count 5.5 X10^3/uL (4.5-11.0)
[2019-07-30 08:37] VITALS: BP 162/85; PULSE 83; RESP 16; O2SAT 97
[2019-07-30 08:42] LABS: INR 0.9 (0.9-1.3); Prothrombin Time 10.6 SECONDS (10.1-12.7)
[2019-07-30 08:45] LABS: PTT Partial Thromboplastin Tim 30 SECONDS (26.4-36.2)
[2019-07-30 08:46] LABS: Alanine Aminotransferase 21 IU/L (<35); Albumin 4.2 g/dL (3.5-5.0); Albumin Globulin Ratio 1.4 (1.0-2.8); Alkaline Phosphatase 88 U/L (38-126); Aspartate Aminotransferase 29 IU/L (14-36); Bilirubin Total 0.4 mg/dL (0.2-1.3); Blood Urea Nitrogen 14 mg/dL (7-17); Calcium 8.9 mg/dL (8.4-10.2); Carbon Dioxide 27 mmol/L (22-32); Chloride 98 mmol/L (98-107); Estimated Glomerular Filt Rate > 60.0 mL/min (>60); Glucose 123 mg/dL (80-110); HEMOLYSIS < 15 (0-50); Lipase 361 U/L (23-300); Potassium 3.8 mmol/L (3.4-5.1); Sodium 131 mmol/L (137-145); Total Protein 7.2 g/dL (6.3-8.2)
[2019-07-30 08:58] LABS: Troponin I < 0.012 ng/mL (0.01-0.034)
[2019-07-30 09:09] VITALS: BP 156/86; PULSE 82; RESP 16; O2SAT 99
[2019-07-30 09:37] VITALS: BP 133/69; PULSE 79; RESP 17; O2SAT 100
--- NOTE | 2019-07-30 09:37 | PC.NURSE ---
reports 6/10 epigastric discomfort, burping. requesting meds.
[2019-07-30 10:05] VITALS: BP 111/67; PULSE 81; O2SAT 96
== END 2019-07-30 10:05 | disposition home or self-care (01) ==
PROVIDERS: Emergency Provider Emergency Medicine; PCP Family Medicine
DX: R07.89 Other chest pain (principal); R20.2 Paresthesia of skin; F41.9 Anxiety disorder, unspecified
CPT/HCPCS: 36415; 80053; 81003; 81015; 83690; 84484; 85025; 85610; 85730; 93005

== ENCOUNTER 2019-07-30 23:19 | Emergency (ER) | payer MEDICARE, OTHER, SELFPAY ==
[2019-07-28 05:28] VITALS: BMI 22.2
[2019-07-30 23:34] VITALS: BP 122/75; PULSE 75; RESP 16; TEMP 36.2; O2SAT 99; BMI 23.6
[2019-07-30 23:44] LABS: Add Manual Diff / Slide Review NO; Basophils Absolute Auto 0 /uL (0-100); Basophils Percent Auto 0.7 % (0-2); Eosinophils Absolute Auto 100 /uL (0-450); Eosinophils Percent Auto 2.3 % (2-4); Hematocrit 35.7 % (36-46); Hemoglobin 12.2 g/dL (12.0-16.0); Lymphocytes Absolute Auto 1700 /uL (1100-4500); Lymphocytes Percent Auto 26.3 % (25-40); Mean Corpuscular HGB Conc 34.3 % (30-36); Mean Corpuscular Hemoglobin 31.4 PG (26-34); Mean Corpuscular Volume 91.8 fL (80-100); Monocytes Absolute Auto 600 /uL (0-900); Monocytes Percent Auto 8.6 % (3-14); Neutrophils Absolute Auto 4000 /uL (1500-7000); Neutrophils Percent Auto 62.1 % (50-75); Platelet Count 280 X10^3/uL (150-400); Red Blood Cell Count 3.89 X10^6/uL (4.0-5.2); White Blood Cell Count 6.4 X10^3/uL (4.5-11.0)
--- NOTE | 2019-07-30 23:46 | ED_ITS ---
HPI - Chest Pain General Chief Complaint: Chest Pain Stated Complaint: legs/right shoulder numb head/chest pain Time Seen by Provider: 07/30/19 23:20 Source: patient and family Mode of arrival: Ambulatory Limitations: no limitations History of Present Illness HPI narrative: 68F nonsmoker with history of HTN, hyperlipidemia presents for the 4th time this week with the chief complaint of chest and abdominal pain. Her pain is persistant and made worse with deep breath, laying flat, or palpation. She states her pain is associated with SOB. She was admitted to the hospital when I saw her a few days ago and discharged yesterday. She had extensive imaging in the ED noting small aneurysms of ascending aorta, saccular in abdominal aorta with extension into her left jason (which is known). Discussions were had with CT surgery and Vascular surgery, both stated these findings were not the cause of her pain in the absence of dissection. She was admitted and had stress test and echo which were unremarkable. She states the pain she is having today is not unlike what she has been having. MD complaint: chest pain Onset (ago): day(s) Duration: intermittent Related Data Home Medications Medication Instructions Recorded Confirmed aspirin 162 mg PO QDAY #0 01/20/17 07/28/19 calcium carbonate-vitamin D3 1 tab PO BID #0 01/20/17 07/28/19 [Oyster Shell Calcium-Vit D3] acetaminophen 650 mg PO Q4HP PRN 09/26/18 07/28/19 amlodipine 5 mg PO DAILY 09/26/18 07/28/19 atorvastatin 20 mg PO DAILY 09/26/18 07/28/19 famotidine 20 mg PO BID 09/26/18 07/28/19 fluticasone propionate 1 spray INTRANASAL DAILY PRN 09/26/18 07/28/19 ibuprofen 400 mg PO Q6HP PRN 09/26/18 07/28/19 olopatadine 1 drp OPHTHALMIC (EYE) DIRECTED 09/26/18 07/28/19 lisinopril 40 mg PO DAILY 04/14/19 07/28/19 calcium carbonate [Tums] 200 mg PO QID 07/28/19 07/28/19 Previous Rx's Medication Instructions Recorded epinephrine [EpiPen 2-Damaso] 0.3 mg IM Q30M PRN #2 each 10/02/17 nitrofurantoin macrocrystal 100 mg PO BID 5 Days #10 cap 07/27/19 ketorolac 10 mg PO Q6H PRN #14 tab 07/31/19 Allergies Allergy/AdvReac Type Severity Reaction Status Date / Time No Known Drug Allergies Allergy Verified 07/30/19 08:07 Review of Systems Constitutional Constitutional: Denies chills, Denies fatigue, Denies fever(s), Denies frequent falls, Denies lethargy and Denies weakness Eyes Eyes: Denies change in vision, Denies eye discharge, Denies irritation and Denie s loss of vision ENT Ears, Nose, Mouth, and Throat: Denies change in voice, Denies dizziness, Denies neck pain, Denies sore throat and Denies throat swelling Cardiovascular Cardiovascular: Reports chest pain, Denies irregular heart rhythm, Denies lightheadedness, Denies palpitations, Reports dyspnea, Denies dyspnea on exerti on and Denies orthopnea Respiratory Respiratory: Denies cough, Reports dyspnea, Denies dyspnea on exertion and Denies wheezing Gastrointestinal Gastrointestinal: Denies abdominal pain, Denies change in bowel habits, Denies diarrhea, Denies nausea and Denies vomiting Genitourinary Genitourinary: Denies hematuria, Denies flank pain, Denies urinary incontinence and Denies urinary urgency Musculoskeletal Musculoskeletal: Denies back pain, Denies muscle weakness, Denies neck pain, Den ies numbness and Denies tingling Integumentary/Breasts Skin/Breast: Denies pruritus, Denies erythema, Denies rash and Denies wounds Neurologic Neurologic: Denies behavioral changes, Denies confusion, Denies dizziness, Denies frequent falls, Denies loss of vision, Denies numbness, Denies tingling and Denies weakness Psychiatric Psychiatric: Denies anxiety, Denies behavioral changes, Denies confusion, Denies depression, Denies homicidal ideation and Denies suicidal ideation Endocrine Endocrine: Denies fatigue, Denies flushing and Denies palpitations Hematologic/Lymphatic Hematologic/Lymphatic: Denies easy bruising Allergic/Immunologic Allergic/Immunologic: Denies urticaria, Denies throat swelling and Denies wheezing Patient History Medical History Dyslipidemia (Chronic) Hypertension (Chronic) Surgical History History of cataract surgery (Acute) Hx of appendectomy (Chronic) Social History marital status: household members: spouse Smoking Status: Never smoker alcohol intake: never substance use type: does not use Smoking Status: Never smoker alcohol intake frequency: 0-2 drinks per day Substance Use Type: does not use Exam Narrative Exam Narrative: GENERAL: [68] year old patient appears stated age. Well-nourished, well-developed patient, in mild distress. Anxious HEAD: Atraumatic. Normocephalic. EYES: Pupils equal round and reactive. Extraocular motions intact. No scleral icterus. No injection or drainage. ENT: Nose without bleeding, purulent drainage. Throat without erythema, tonsillar hypertrophy or exudate. Airway patent. NECK: Trachea midline. Non tender CARDIOVASCULAR: Regular rate and rhythm without murmurs, gallops, or rubs. Right anterior chest tender to palpation (worsens the pain which brought her in) RESPIRATORY: Clear to auscultation. Breath sounds equal bilaterally. No wheezes, rales, or rhonchi. GASTROINTESTINAL: Abdomen soft, non-tender, nondistended. EXTREMITIES: No edema or joint tenderness. BACK: Nontender without deformity or crepitance. No flank tenderness. NEURO: AOx3. SKIN: No rash or erythema of visible areas Initial Vital Signs Initial Vital Signs: Vital Signs Temperature 97.1 F L 07/30/19 23:34 Pulse Rate 75 07/30/19 23:34 Respiratory Rate 16 07/30/19 23:34 Blood Pressure 122/75 07/30/19 23:34 Pulse Oximetry 99 07/30/19 23:34 Course Orders Ordered: ED Orders 07/30/19 23:20 Complete Blood Count AUTO DIFF Stat Comprehensive Metabolic Panel Stat D Dimer Stat Troponin & CK Cardiac Panel Stat 07/31/19 00:12 UA Complete [Urinalysis and Microscopic] Stat 07/31/19 01:09 Troponin I Stat 07/31/19 23:25 EKG-12 Lead Routine Discontinued Medications Ketorolac Tromethamine (Toradol) 15 mg IV NOW ONE Stop: 07/31/19 00:20 Last Admin: 07/31/19 00:25 Dose: 15 mg Documented by: [email or web address] Vital Signs Vital signs: Vital Signs - 8 hr 07/30/19 23:34 07/31/19 00:00 07/31/19 00:30 Temperature 97.1 F L Pulse Rate 75 68 70 Respiratory Rate 16 13 14 Blood Pressure 122/75 Blood Pressure [Left Arm] 110/67 122/76 Pulse Oximetry 99 98 98 07/31/19 01:24 07/31/19 02:13 Temperature Pulse Rate 76 75 Respiratory Rate 74 H 15 Blood Pressure Blood Pressure [Left Arm] 108/69 130/78 Pulse Oximetry 99 99 MDM - Chest Pain Lab Data Result diagrams: 07/30/19 23:20 07/30/19 23:20 Labs: Lab Results 07/30/19 07/30/19 07/30/19 Range/Units 23:20 23:20 23:20 WBC 6.4 (4.5-11.0) X10^3/uL RBC 3.89 L (4.0-5.2) X10^6/uL Hgb 12.2 (12.0-16.0) g/dL Hct 35.7 L (36-46) % MCV 91.8 (80-100) fL MCH 31.4 (26-34) PG MCHC 34.3 (30-36) % RDW 13.0 (11.6-14.8) % Plt Count 280 (150-400) X10^3/uL Neut % (Auto) 62.1 (50-75) % Lymph % (Auto) 26.3 (25-40) % Emmons % (Auto) 8.6 (3-14) % Eos % (Auto) 2.3 (2-4) % Baso % (Auto) 0.7 (0-2) % Neut # (Auto) 4000 (2124-5617) /uL Lymph # (Auto) 1700 (4151-6227) /uL Emmons # (Auto) 600 (0-900) /uL Eos # (Auto) 100 (0-450) /uL Baso # (Auto) 0 (0-100) /uL D-Dimer < 200 (<230) ng/mL Sodium 130 L (137-145) mmol/L Potassium 4.0 (3.4-5.1) mmol/L Chloride 95 L (98-107) mmol/L Carbon Dioxide 25 (22-32) mmol/L BUN 16 (7-17) mg/dL Creatinine 0.65 (0.52-1.04) mg/dL Estimated GFR > 60.0 (>60) mL/min BUN/Creatinine Ratio 24.6 H (6-22) Glucose 127 H (80-110) mg/dL Calcium 9.1 (8.4-10.2) mg/dL Total Bilirubin 0.4 (0.2-1.3) mg/dL AST 34 (14-36) IU/L ALT 23 (<35) IU/L Alkaline Phosphatase 83 (38-126) U/L Total Creatine Kinase (30-135) U/L CK-MB (CK-2) (<2.37) ng/mL CK-MB (CK-2) Rel Index (1.5-5.0) % Troponin I (0.01-0.034) ng/mL Total Protein 7.7 (6.3-8.2) g/dL Albumin 4.5 (3.5-5.0) g/dL Globulin 3.2 (1.7-4.1) g/dL Albumin/Globulin Ratio 1.4 (1.0-2.8) Urine Color Urine Appearance Urine pH (4.5-8.0) Ur Specific [place] (1.000-1.035) Urine Protein (Negative) Urine Glucose (UA) (Negative) g/dL Urine Ketones (NEGATIVE) Urine Occult Blood (Negative) Urine Nitrate (Negative) Urine Bilirubin (NEGATIVE) Urine Urobilinogen (0.2) E.U./dL Ur Leukocyte Esterase (NEGATIVE) Urine RBC (0-5/HPF) Urine WBC (0-5/HPF) Ur Squamous Epith Cells (0-5/HPF) Urine Bacteria (None) Ur Culture Indicated? 07/30/19 07/30/19 07/31/19 Range/Units 23:20 23:40 01:09 WBC (4.5-11.0) X10^3/uL RBC (4.0-5.2) X10^6/uL Hgb (12.0-16.0) g/dL Hct (36-46) % MCV (80-100) fL MCH (26-34) PG MCHC (30-36) % RDW (11.6-14.8) % Plt Count (150-400) X10^3/uL Neut % (Auto) (50-75) % Lymph % (Auto) (25-40) % Emmons % (Auto) (3-14) % Eos % (Auto) (2-4) % Baso % (Auto) (0-2) % Neut # (Auto) (1384-2517) /uL Lymph # (Auto) (3024-7239) /uL Emmons # (Auto) (0-900) /uL Eos # (Auto) (0-450) /uL Baso # (Auto) (0-100) /uL D-Dimer (<230) ng/mL Sodium (137-145) mmol/L Potassium (3.4-5.1) mmol/L Chloride (98-107) mmol/L Carbon Dioxide (22-32) mmol/L BUN (7-17) mg/dL Creatinine (0.52-1.04) mg/dL Estimated GFR (>60) mL/min BUN/Creatinine Ratio (6-22) Glucose (80-110) mg/dL Calcium (8.4-10.2) mg/dL Total Bilirubin (0.2-1.3) mg/dL AST (14-36) IU/L ALT (<35) IU/L Alkaline Phosphatase (38-126) U/L Total Creatine Kinase 141 H (30-135) U/L CK-MB (CK-2) 2.16 (<2.37) ng/mL CK-MB (CK-2) Rel Index 1.5 (1.5-5.0) % Troponin I < 0.012 < 0.012 (0.01-0.034) ng/mL Total Protein (6.3-8.2) g/dL Albumin (3.5-5.0) g/dL Globulin (1.7-4.1) g/dL Albumin/Globulin Ratio (1.0-2.8) Urine Color Straw Urine Appearance Clear Urine pH 7.0 (4.5-8.0) Ur Specific [place] <=1.005 (1.000-1.035) Urine Protein Negative (Negative) Urine Glucose (UA) Negative (Negative) g/dL Urine Ketones Negative (NEGATIVE) Urine Occult Blood Trace-intact (Negative) Urine Nitrate Negative (Negative) Urine Bilirubin Negative (NEGATIVE) Urine Urobilinogen 0.2 (0.2) E.U./dL Ur Leukocyte Esterase Negative (NEGATIVE) Urine RBC None seen (0-5/HPF) Urine WBC None seen (0-5/HPF) Ur Squamous Epith Cells 0-1 /hpf (0-5/HPF) Urine Bacteria None seen (None) Ur Culture Indicated? Cult not indicated ECG Data Attestation: I personally reviewed and interpreted this ECG as follows: Prior ECG tracings: available for review Interpretation: EKG is normal sinus rhythm rate [74 ] and free of any signs of ischemia or ectopy. No ST segmental elevation or depression. No T wave inversions. 1st degree AV block. Unchanged from multiple priors MDM Narrative Medical decision making narrative: Patient with multiple recent visits for similar. Very thorough evaluations including CTA, echo, stress test, multiple labs with negative troponin among others. Her pain is reproducible to palpation, deep breath and change in position. Improves with Toradol. Again ischemic heart disease, pulmonary embolism and other considered but thought much less likely given the above-stated evaluations, history and exam. Patient is admittedly quite anxious and this may be playing a role. Return precautions given and questions answered to her apparent satisfaction. Discharge Plan Departure Patient Disposition: Home Clinical Impression: Atypical chest pain Discharge Date/Time: 07/31/19 02:12 Instructions: DI for Atypical Chest Pain Activity Restrictions/Additional Instructions: *You have been diagnosed with [atypical chest pain, likely inflammatory in nature. Very reassuring EKG, lab work and recent workup] *What to do: *Take medications as directed *Follow up with your primary care provider in 2-3 days, call for an appointment. Let them know you were seen in the Emergency Department and that we ask that you be seen in follow up *Return to ER if you should have any new, worsening or concerning symptoms Prescriptions: New ketorolac 10 mg tablet 10 mg PO Q6H PRN (Reason: pain) Qty: 14 RF: 0 No Action aspirin 81 MG tablet,delayed release (DR/EC) 162 mg PO QDAY Qty: 0 RF: 0 calcium carbonate-vitamin D3 [Oyster Shell Calcium-Vit D3] 500 MG/200 IU tablet 1 tab PO BID Qty: 0 RF: 0 epinephrine [EpiPen 2-Damaso] 0.3 mg/0.3 mL auto-injector 0.3 mg IM Q30M PRN (Reason: anaphylaxis) Qty: 2 RF: 0 lisinopril 40 mg tablet 40 mg PO DAILY RF: 0 nitrofurantoin macrocrystal 100 mg capsule 100 mg PO BID 5 Days Qty: 10 RF: 0 atorvastatin 20 mg tablet 20 mg PO DAILY RF: 0 amlodipine 5 mg tablet 5 mg PO DAILY RF: 0 famotidine 20 mg tablet 20 mg PO BID RF: 0 olopatadine 0.1 % drops 1 drp ophthalmic (eye) DIRECTED RF: 0 acetaminophen 325 MG tablet 650 mg PO Q4HP PRN (Reason: pain) RF: 0 fluticasone propionate 50 mcg/actuation spray,suspension 1 spray intranasal DAILY PRN (Reason: Allergy Symptoms) RF: 0 ibuprofen 400 MG tablet 400 mg PO Q6HP PRN (Reason: pain) RF: 0 calcium carbonate [Tums] 200 mg calcium (500 mg) Tablet,Chewable 200 mg PO QID RF: 0 Referrals: Patricia Tamayo MD [Primary Care Provider] -
[2019-07-30 23:58] LABS: Creatine Kinase 141 U/L (30-135)
[2019-07-31] VITALS: BP 110/67; PULSE 68; RESP 13; O2SAT 98
[2019-07-31] LABS: Alanine Aminotransferase 23 IU/L (<35); Albumin 4.5 g/dL (3.5-5.0); Albumin Globulin Ratio 1.4 (1.0-2.8); Alkaline Phosphatase 83 U/L (38-126); Aspartate Aminotransferase 34 IU/L (14-36); BUN Creatinine Ratio 24.6 (6-22); Bilirubin Total 0.4 mg/dL (0.2-1.3); Blood Urea Nitrogen 16 mg/dL (7-17); Calcium 9.1 mg/dL (8.4-10.2); Carbon Dioxide 25 mmol/L (22-32); Chloride 95 mmol/L (98-107); Estimated Glomerular Filt Rate > 60.0 mL/min (>60); Globulin 3.2 g/dL (1.7-4.1); Glucose 127 mg/dL (80-110); HEMOLYSIS 29 (0-50); Sodium 130 mmol/L (137-145); Total Protein 7.7 g/dL (6.3-8.2)
[2019-07-31 00:11] LABS: Troponin I < 0.012 ng/mL (0.01-0.034)
[2019-07-31 00:14] LABS: CKMB % Relative Index 1.5 % (1.5-5.0); Creatine Kinase MB 2.16 ng/mL (<2.37)
[2019-07-31 00:15] LABS: D Dimer < 200 ng/mL (<230)
[2019-07-31 00:18] LABS: Bacteria Urine None Seen; RBC Urine None Seen (0-5/HPF); WBC Urine None Seen (0-5/HPF)
[2019-07-31 00:24] LABS: Appearance Urine UA CLEAR; Bilirubin Urine UA NEGATIVE (NEGATIVE); Glucose Urine UA NEGATIVE (Negative); Ketones Urine UA NEGATIVE (NEGATIVE); Leukocyte Esterase Urine UA NEGATIVE (NEGATIVE); Nitrite Urine UA NEGATIVE (Negative); Occult Blood Urine UA TRACE-INTACT (Negative); Protein Urine UA NEGATIVE (Negative); Specific Gravity Urine UA <=1.005 (1.000-1.035); Urobilinogen Urine UA 0.2 E.U./dL (0.2)
[2019-07-31] MEDS: KETOROLAC 60 MG/2 ML VIAL 15 MG IV (00:25)
[2019-07-31 00:30] VITALS: BP 122/76; PULSE 70; RESP 14; O2SAT 98
[2019-07-31 00:30] LABS: Color Urine UA Straw
[2019-07-31 00:38] LABS: Culture Indicated Urine Cult Not Indicated; Squamous Epithelial Cell Urine 0-1 /HPF (0-5/HPF)
[2019-07-31 01:24] VITALS: BP 108/69; PULSE 76; RESP 74; O2SAT 99
[2019-07-31 01:42] LABS: Troponin I < 0.012 ng/mL (0.01-0.034)
[2019-07-31 02:00] VITALS: BP 130/78; PULSE 75; RESP 20; O2SAT 99
[2019-07-31 02:13] VITALS: BP 130/78; PULSE 75; RESP 15; O2SAT 99
== END 2019-07-31 02:12 | disposition home or self-care (01) ==
PROVIDERS: Emergency Provider Emergency Medicine; PCP Family Medicine
DX: R07.89 Other chest pain (principal); R06.02 Shortness of breath; R10.9 Unspecified abdominal pain; I10 Essential (primary) hypertension; E78.5 Hyperlipidemia, unspecified; R20.2 Paresthesia of skin; F41.9 Anxiety disorder, unspecified
CPT/HCPCS: 36415; 80053; 81001; 81003; 81015; 82550; 82553; 83690; 84484; 85025; 85379; 85610; 85730; 93005; 96374; 96375; 99284; J1885

== ENCOUNTER 2019-08-04 09:02 | Emergency (ER) | payer MEDICARE, OTHER, SELFPAY ==
[2019-07-28 05:28] VITALS: BMI 22.2
[2019-08-04 09:05] VITALS: BP 156/77; PULSE 75; RESP 12; TEMP 36.8; O2SAT 99
--- NOTE | 2019-08-04 09:44 | DI.RAD.S_ITS ---
PROCEDURE: XR CHEST 1V INDICATIONS: chest pain TECHNIQUE: One view of the chest was acquired. COMPARISON: [facility], CT, CT ANGIO CHEST ABDOMEN PELVIS, 07/28/2019, 0:24. [facility], CR, XR CHEST 1V, 07/27/2019, 23:39. FINDINGS: Surgical changes and devices: None. Lungs and pleura: Lungs are clear. No pleural effusions or pneumothorax. Mediastinum: Mediastinal contours appear unchanged. There is tortuosity of the thoracic aorta again noted. Heart size is normal. Bones and chest wall: No suspicious bony lesions. Overlying soft tissues appear unremarkable. IMPRESSION: 1. No acute cardiopulmonary disease. Dictated by: Rashad Raymond M.D. on 08/04/2019 at 10:27 Approved by: Rashad Raymond M.D. on 08/04/2019 at 10:28
[2019-08-04] MEDS: ASPIRIN 81 MG CHEW TAB 324 MG PO (09:52)
[2019-08-04] MEDS: SODIUM CHLORIDE 0.9% 1,000 ML 150 ML IV (09:52)
[2019-08-04] MEDS: KETOROLAC 60 MG/2 ML VIAL 15 MG IV (09:52)
[2019-08-04 09:59] LABS: Add Manual Diff / Slide Review NO; Basophils Absolute Auto 100 /uL (0-100); Basophils Percent Auto 1.1 % (0-2); Eosinophils Absolute Auto 0 /uL (0-450); Eosinophils Percent Auto 0.5 % (2-4); Hematocrit 33.1 % (36-46); Hemoglobin 11.8 g/dL (12.0-16.0); Lymphocytes Absolute Auto 900 /uL (1100-4500); Lymphocytes Percent Auto 15.7 % (25-40); Mean Corpuscular HGB Conc 35.6 % (30-36); Mean Corpuscular Hemoglobin 32.6 PG (26-34); Mean Corpuscular Volume 91.8 fL (80-100); Monocytes Absolute Auto 400 /uL (0-900); Monocytes Percent Auto 7.7 % (3-14); Neutrophils Absolute Auto 4300 /uL (1500-7000); Platelet Count 313 X10^3/uL (150-400); Red Blood Cell Count 3.61 X10^6/uL (4.0-5.2); White Blood Cell Count 5.8 X10^3/uL (4.5-11.0)
--- NOTE | 2019-08-04 10:03 | ED.CHESTPAIN ---
HPI - Chest Pain General Chief Complaint: Chest Pain Stated Complaint: Dizzy,Chest pain Time Seen by Provider: 08/04/19 09:02 Source: patient Mode of arrival: Ambulatory Limitations: no limitations History of Present Illness HPI narrative: 68-year-old female nonsmoker returns for another current some of her sharp and stabbing anterior chest pain which is recent reducible with deep breath, movement and palpation. She has had extensive recent visits including multiple sets of images and consultations. She has very reproducible pain, improvement with NSAIDs and a follow-up with her PCP tomorrow. She denies any exertional worsening or other red flag symptoms such as radiation, exertional worsening, nausea, vomiting, diaphoresis or other MD complaint: chest pain Onset (ago): hour(s) Duration: improved Onset: during rest Pain location: left chest and right chest Severity: moderate Quality: sharp Pain radiation: none Relieving factors: rest Exacerbating factors: inspiration, palpation and movement Related Data On Oral Contraceptives: No Home Medications Medication Instructions Recorded Confirmed aspirin 162 mg PO QDAY #0 01/20/17 07/28/19 calcium carbonate-vitamin D3 1 tab PO BID #0 01/20/17 07/28/19 [Oyster Shell Calcium-Vit D3] acetaminophen 650 mg PO Q4HP PRN 09/26/18 07/28/19 amlodipine 5 mg PO DAILY 09/26/18 07/28/19 atorvastatin 20 mg PO DAILY 09/26/18 07/28/19 famotidine 20 mg PO BID 09/26/18 07/28/19 fluticasone propionate 1 spray INTRANASAL DAILY PRN 09/26/18 07/28/19 ibuprofen 400 mg PO Q6HP PRN 09/26/18 07/28/19 olopatadine 1 drp OPHTHALMIC (EYE) DIRECTED 09/26/18 07/28/19 lisinopril 40 mg PO DAILY 04/14/19 07/28/19 calcium carbonate [Tums] 200 mg PO QID 07/28/19 07/28/19 Previous Rx's Medication Instructions Recorded epinephrine [EpiPen 2-Damaso] 0.3 mg IM Q30M PRN #2 each 10/02/17 nitrofurantoin macrocrystal 100 mg PO BID 5 Days #10 cap 07/27/19 ketorolac 10 mg PO Q6H PRN #14 tab 07/31/19 Allergies Allergy/AdvReac Type Severity Reaction Status Date / Time No Known Drug Allergies Allergy Verified 07/30/19 08:07 Review of Systems Constitutional Constitutional: Denies chills, Denies fatigue, Denies fever(s), Denies frequent falls, Denies lethargy and Denies weakness Eyes Eyes: Denies change in vision, Denies eye discharge, Denies irritation and Denies loss of vision ENT Ears, Nose, Mouth, and Throat: Denies change in voice, Denies dizziness, Denies neck pain, Denies sore throat and Denies throat swelling Cardiovascular Cardiovascular: Reports chest pain, Denies irregular heart rhythm, Denies lightheadedness, Denies palpitations, Denies dyspnea, Denies dyspnea on exertion and Denies orthopnea Respiratory Respiratory: Denies cough, Denies dyspnea, Denies dyspnea on exertion and Denies wheezing Gastrointestinal Gastrointestinal: Denies abdominal pain, Denies change in bowel habits, Denies diarrhea, Denies nausea and Denies vomiting Genitourinary Genitourinary: Denies hematuria, Denies flank pain, Denies urinary incontinence and Denies urinary urgency Musculoskeletal Musculoskeletal: Denies back pain, Denies muscle weakness, Denies neck pain, Denies numbness and Denies tingling Integumentary/Breasts Skin/Breast: Denies pruritus, Denies erythema, Denies rash and Denies wounds Neurologic Neurologic: Denies behavioral changes, Denies confusion, Denies dizziness, Denies frequent falls, Denies loss of vision, Denies numbness, Denies tingling and Denies weakness Psychiatric Psychiatric: Denies anxiety, Denies behavioral changes, Denies confusion, Denies depression, Denies homicidal ideation and Denies suicidal ideation Endocrine Endocrine: Denies fatigue, Denies flushing and Denies palpitations Hematologic/Lymphatic Hematologic/Lymphatic: Denies easy bruising Allergic/Immunologic Allergic/Immunologic: Denies urticaria, Denies throat swelling and Denies wheezing Patient History Medical History Dyslipidemia (Chronic) Hypertension (Chronic) Surgical History History of cataract surgery (Acute) Hx of appendectomy (Chronic) Social History marital status: household members: spouse Smoking Status: Never smoker alcohol intake: never substance use type: does not use Smoking Status: Never smoker alcohol intake frequency: 0-2 drinks per day Substance Use Type: does not use Exam Narrative Exam Narrative: GENERAL: [68] year old patient appears stated age. Well-nourished, well-developed patient, in mild distress. Anxious HEAD: Atraumatic. Normocephalic. EYES: Pupils equal round and reactive. Extraocular motions intact. No scleral icterus. No injection or drainage. ENT: Nose without bleeding, purulent drainage. Throat without erythema, tonsillar hypertrophy or exudate. Airway patent. NECK: Trachea midline. Non tender CARDIOVASCULAR: Regular rate and rhythm without murmurs, gallops, or rubs. Reproducible sharp chest pain to palpation of her anterior chest wall RESPIRATORY: Clear to auscultation. Breath sounds equal bilaterally. No wheezes, rales, or rhonchi. GASTROINTESTINAL: Abdomen soft, non-tender, nondistended. EXTREMITIES: No edema or joint tenderness. BACK: Nontender without deformity or crepitance. No flank tenderness. NEURO: AOx3. SKIN: No rash or erythema of visible areas Initial Vital Signs Initial Vital Signs: Vital Signs Temperature 98.3 F 08/04/19 09:05 Pulse Rate 75 08/04/19 09:05 Respiratory Rate 12 08/04/19 09:05 Blood Pressure 156/77 H 08/04/19 09:05 Pulse Oximetry 99 08/04/19 09:05 Course Orders Ordered: Discontinued Medications Aspirin (Aspirin Chew) 324 mg PO NOW ONE Stop: 08/04/19 09:45 Last Admin: 08/04/19 09:52 Dose: 324 mg Documented by: SIA Sodium Chloride (Normal Saline 0.9%) 1,000 mls @ 150 mls/hr IV CONT VARSHA Last Admin: 08/04/19 09:52 Dose: 150 mls/hr Documented by: SIA Ketorolac Tromethamine (Toradol) 15 mg IV NOW ONE Stop: 08/04/19 09:45 Last Admin: 08/04/19 09:52 Dose: 15 mg Documented by: SIA Consultations Consultation #1: discussion with PCP, happy to see patient tomorrow. No additional orders Vital Signs Vital signs: Vital Signs - 8 hr 08/04/19 11:28 08/04/19 11:45 Pulse Rate 69 71 Respiratory Rate 24 16 Blood Pressure [Left Arm] 130/77 137/74 Pulse Oximetry 99 100 MDM - Chest Pain Lab Data Result diagrams: 08/04/19 09:40 08/04/19 09:40 Labs: Lab Results 08/04/19 08/04/19 Range/Units 09:40 09:40 WBC 5.8 (4.5-11.0) X10^3/uL RBC 3.61 L (4.0-5.2) X10^6/uL Hgb 11.8 L (12.0-16.0) g/dL Hct 33.1 L (36-46) % MCV 91.8 (80-100) fL MCH 32.6 (26-34) PG MCHC 35.6 (30-36) % RDW 13.0 (11.6-14.8) % Plt Count 313 (150-400) X10^3/uL Neut % (Auto) 75.0 (50-75) % Lymph % (Auto) 15.7 L (25-40) % Edmonson % (Auto) 7.7 (3-14) % Eos % (Auto) 0.5 L (2-4) % Baso % (Auto) 1.1 (0-2) % Neut # (Auto) 4300 (6625-2262) /uL Lymph # (Auto) 900 L (7669-4819) /uL Edmonson # (Auto) 400 (0-900) /uL Eos # (Auto) 0 (0-450) /uL Baso # (Auto) 100 (0-100) /uL Sodium 127 L (137-145) mmol/L Potassium 3.8 (3.4-5.1) mmol/L Chloride 94 L (98-107) mmol/L Carbon Dioxide 27 (22-32) mmol/L BUN 12 (7-17) mg/dL Creatinine 0.56 (0.52-1.04) mg/dL Estimated GFR > 60.0 (>60) mL/min BUN/Creatinine Ratio 21.4 (6-22) Glucose 117 H (80-110) mg/dL Calcium 8.6 (8.4-10.2) mg/dL Total Bilirubin 0.4 (0.2-1.3) mg/dL AST 32 (14-36) IU/L ALT 20 (<35) IU/L Alkaline Phosphatase 70 (38-126) U/L Total Creatine Kinase 208 H (30-135) U/L CK-MB (CK-2) 1.23 (<2.37) ng/mL CK-MB (CK-2) Rel Index 0.6 L (1.5-5.0) % Troponin I < 0.012 (0.01-0.034) ng/mL NT-Pro-B Natriuret Pep 123 (<125) pg/mL Total Protein 7.2 (6.3-8.2) g/dL Albumin 4.0 (3.5-5.0) g/dL Globulin 3.2 (1.7-4.1) g/dL Albumin/Globulin Ratio 1.3 (1.0-2.8) Lipase 308 H (23-300) U/L Imaging Data Chest x-ray: Radiologist's Impression: Wen Marsh R 68 F [address] [place] [address] XRay Report Signed Patient: Wen Marsh RMR#: [id number] : 1950Acct:[id number] Age/Sex: 68 / FDate of Service: 08/04/19 Loc: ED Accession Number: [id number] Procedure: XR chest 1V Ordering Provider: Carmine Warren D.O. PROCEDURE: XR CHEST 1V INDICATIONS: chest pain TECHNIQUE: One view of the chest was acquired. COMPARISON: [facility], CT, CT ANGIO CHEST ABDOMEN PELVIS, 07/28/2019, 0:24. [facility], CR, XR CHEST 1V, 07/27/2019, 23:39. FINDINGS: Surgical changes and devices: None. Lungs and pleura: Lungs are clear. No pleural effusions or pneumothorax. Mediastinum: Mediastinal contours appear unchanged. There is tortuosity of the thoracic aorta again noted. Heart size is normal. Bones and chest wall: No suspicious bony lesions. Overlying soft tissues appear unremarkable. IMPRESSION: 1. No acute cardiopulmonary disease. Dictated by: Rashad Raymond M.D. on 08/04/2019 at 10:27 Approved by: Rashad Raymond M.D. on 08/04/2019 at 10:28 MDM Narrative Medical decision making narrative: Multiple etiologies for patient's symptoms considered including: [Cardiac ischemia versus pulmonary embolism versus inflammatory process versus other] Patient's symptoms improved or duration of stay with above-stated therapies. Findings and discharge diagnosis discussed with patient/family followed by verbalization of understanding Return precautions discussed with patient/family whom verbalize understanding. Discharge Plan Departure Patient Disposition: Home Clinical Impression: Atypical chest pain Discharge Date/Time: 08/04/19 12:05 Instructions: DI for Atypical Chest Pain Activity Restrictions/Additional Instructions: *You have been diagnosed with [Atypical chest pain ] *What to do: *Take medications as directed *Follow up with your primary care provider in 2-3 days, call for an appointment. Let them know you were seen in the Emergency Department and that we ask that you be seen in follow up *Return to ER if you should have any new, worsening or concerning symptoms Prescriptions: No Action aspirin 81 MG tablet,delayed release (DR/EC) 162 mg PO QDAY Qty: 0 RF: 0 calcium carbonate-vitamin D3 [Oyster Shell Calcium-Vit D3] 500 MG/200 IU tablet 1 tab PO BID Qty: 0 RF: 0 epinephrine [EpiPen 2-Damaso] 0.3 mg/0.3 mL auto-injector 0.3 mg IM Q30M PRN (Reason: anaphylaxis) Qty: 2 RF: 0 lisinopril 40 mg tablet 40 mg PO DAILY RF: 0 nitrofurantoin macrocrystal 100 mg capsule 100 mg PO BID 5 Days Qty: 10 RF: 0 atorvastatin 20 mg tablet 20 mg PO DAILY RF: 0 amlodipine 5 mg tablet 5 mg PO DAILY RF: 0 famotidine 20 mg tablet 20 mg PO BID RF: 0 olopatadine 0.1 % drops 1 drp ophthalmic (eye) DIRECTED RF: 0 acetaminophen 325 MG tablet 650 mg PO Q4HP PRN (Reason: pain) RF: 0 fluticasone propionate 50 mcg/actuation spray,suspension 1 spray intranasal DAILY PRN (Reason: Allergy Symptoms) RF: 0 ibuprofen 400 MG tablet 400 mg PO Q6HP PRN (Reason: pain) RF: 0 calcium carbonate [Tums] 200 mg calcium (500 mg) Tablet,Chewable 200 mg PO QID RF: 0 ketorolac 10 mg tablet 10 mg PO Q6H PRN (Reason: pain) Qty: 14 RF: 0 Referrals: Patricia Tamayo MD [Primary Care Provider] -
[2019-08-04 10:23] LABS: Alanine Aminotransferase 20 IU/L (<35); Albumin Globulin Ratio 1.3 (1.0-2.8); Alkaline Phosphatase 70 U/L (38-126); Aspartate Aminotransferase 32 IU/L (14-36); BUN Creatinine Ratio 21.4 (6-22); Bilirubin Total 0.4 mg/dL (0.2-1.3); Blood Urea Nitrogen 12 mg/dL (7-17); Calcium 8.6 mg/dL (8.4-10.2); Carbon Dioxide 27 mmol/L (22-32); Chloride 94 mmol/L (98-107); Creatine Kinase 208 U/L (30-135); Estimated Glomerular Filt Rate > 60.0 mL/min (>60); Globulin 3.2 g/dL (1.7-4.1); Glucose 117 mg/dL (80-110); HEMOLYSIS 34 (0-50); Lipase 308 U/L (23-300); Potassium 3.8 mmol/L (3.4-5.1); Sodium 127 mmol/L (137-145); Total Protein 7.2 g/dL (6.3-8.2)
[2019-08-04 10:34] LABS: NT-proBNP (BNP-Adult 18+) 123 pg/mL (<125); Troponin I < 0.012 ng/mL (0.01-0.034)
[2019-08-04 10:38] LABS: CKMB % Relative Index 0.6 % (1.5-5.0); Creatine Kinase MB 1.23 ng/mL (<2.37)
[2019-08-04 11:28] VITALS: BP 130/77; PULSE 69; RESP 24; O2SAT 99
[2019-08-04 11:45] VITALS: BP 137/74; PULSE 71; RESP 16; O2SAT 100
== END 2019-08-04 12:05 | disposition home or self-care (01) ==
PROVIDERS: Emergency Provider Emergency Medicine; PCP Family Medicine
DX: R07.89 Other chest pain (principal); I10 Essential (primary) hypertension; E78.5 Hyperlipidemia, unspecified
CPT/HCPCS: 36415; 71045; 80053; 82550; 82553; 83690; 83880; 84484; 85025; 93005; 93010; 96374; 99284; J1885

== ENCOUNTER → 2019-08-14 10:06 | Outpatient (CLI) | payer MEDICARE, OTHER, SELFPAY ==
[2019-07-28 05:28] VITALS: BMI 22.2
--- NOTE | 2019-08-14 11:42 | DI.CT.S_ITS ---
PROCEDURE: CT ABDOMEN PELVIS W CON INDICATIONS: ABD PAIN TECHNIQUE: After the administration of oral and intravenous contrast, 5 mm thick sections acquired from the diaphragms to the symphysis. 5 mm thick coronal and sagittal reformats were performed. For radiation dose reduction, the following was used: automated exposure control, adjustment of mA and/or kV according to patient size. COMPARISON: [facility], CT, ABDOMEN/PELVIS WITH CONTRAST, 01/23/2017, 16:07. FINDINGS: Image quality: Excellent. ABDOMEN: Lung bases: Lung bases are clear except for mild linear atelectasis or scarring. Heart size is normal. Solid organs: Liver is normal in size and enhancement. Gallbladder appears normal. Biliary system is non-dilated. Pancreas enhances normally. Spleen is normal in size and enhancement. No adrenal nodules. Kidneys are normal in size and enhancement, without hydronephrosis. Peritoneum and bowel: Stomach, small bowel, and colon loops are normal in caliber and wall thickness. No free fluid or air. Nodes and vessels: No retroperitoneal or mesenteric adenopathy. Aorta and inferior vena cava are normal in caliber. Miscellaneous: No ventral hernias. PELVIS: Genitourinary: Bladder wall thickness is normal. Miscellaneous: No inguinal hernias or adenopathy. Note is made of asymmetric enlargement of the left common iliac artery measuring up to 2.6 cm, versus normal caliber of 1.6 cm on the right. No perianeurysmal fibrosis or evidence of aneurysm leak is present. No dissection found. The aorta is normal in caliber in this area. Bones: No suspicious bony lesions. No vertebral body compression fractures. 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 No evidence of diverticulitis, urinary tract inflammation, or appendicitis. Dictated by: Rajan Tobias M.D. on 08/14/2019 at 12:39 Approved by: Rajan Tobias M.D. on 08/14/2019 at 12:43
[2019-08-14 11:51] LABS: BUN Creatinine Ratio 20.8 (6-22); Blood Urea Nitrogen 15 mg/dL (7-17); Estimated Glomerular Filt Rate > 60.0 mL/min (>60)
== END ==
PROVIDERS: PCP Family Medicine; Referring Provider Family Medicine; Visit Provider Family Medicine
DX: R10.9 Unspecified abdominal pain (principal); R14.2 Eructation; I72.3 Aneurysm of iliac artery
CPT/HCPCS: 36415; 74177; 82565; 84520; Q9967

== ENCOUNTER → 2019-08-22 14:27 | Outpatient (CLI) | payer MEDICARE, OTHER, SELFPAY ==
[2019-07-28 05:28] VITALS: BMI 22.2
[2019-08-23 02:27] LABS: COVID19 Sendout Not Detected (Not Detect)
== END ==
PROVIDERS: PCP Family Medicine; Visit Provider Physician Assistant
DX: Z01.818 Encounter for other preprocedural examination (principal)
CPT/HCPCS: 87635

== ENCOUNTER 2019-08-25 12:45 | Day surgery (SDC) | payer MEDICARE, OTHER, SELFPAY ==
[2019-07-28 05:28] VITALS: BMI 22.2
[2019-08-25] VITALS (7 sets, daily range): BP systolic 83–152; BP diastolic 60–89; PULSE 64–92; RESP 10–18; TEMP 36.9–37.8; O2SAT 97–99; BMI 22.8
--- NOTE | 2019-08-25 | PATH_ITS ---
[facility] Accession Number: [id number] . 01 Material submitted: . PART A: duodenum - DUODENUM BIOPSIES PART B: gastrointestinal site - STOMACH BIOPSIES PART C: esophagus - DISTAL ESOPHAGUS BIOPSIES . 01 Diagnosis: A. Duodenum, Biopsies: Duodenal mucosa with no diagnostic abnormality. Negative for active inflammation, features of sprue, dysplasia, or malignancy. . B. Stomach, Biopsies: Gastric antral mucosa with mild chronic inflammation. Negative for Helicobacter organisms by immunohistochemistry. Negative for intestinal metaplasia. Negative for dysplasia or malignancy. . C. Distal Esophagus, Biopsies: Proximal gastric-type mucosa with mild chronic inflammation. Negative for specialized intestinal metaplasia on alcian blue stain. Negative for dysplasia or malignancy. [facility] 08/27/2019 1316 Local . 01 Electronically signed: . Jace Martini MD, PhD, Pathologist NPI- [id number] . 01 Gross description: . Part A: DUODENUM BIOPSIES: Received in formalin are 2 fragment(s) of ballesteros, soft tissue measuring 0.1 x 0.1 x 0.1 cm to 0.2 x 0.2 x 0.2 cm submitted entirely in 1 cassette(s) Part B: STOMACH BIOPSIES: Received in formalin are 2 fragment(s) of ballesteros, soft tissue measuring 0.1 x 0.1 x 0.1 cm to 0.3 x 0.2 x 0.2 cm submitted entirely in 1 cassette(s) Part C: DISTAL ESOPHAGUS BIOPSIES: Received in formalin is 1 fragment(s) of ballesteros, soft tissue measuring 0.3 x 0.1 x 0.1 cm submitted entirely in 1 cassette(s) /NEIL 08/25/2019 2227 Local . 01 Microscopic: . B. An immunohistochemical stain was performed to evaluate for Helicobacter organisms and is negative. The control stain showed appropriate reactivity. . C. An alcian blue stain is performed to evaluate for specialized intestinal metaplasia, and is negative for goblet cells. A control stain shows appropriate reactivity. . * This test was developed and its performance characteristics determined by [employer]. It has not been cleared or approved by the U.S. Food and Drug Administration. The FDA has determined that such clearance or approval is not necessary. This test is used for clinical purposes. It should not be regarded as investigational or for research. . 01 Pathologist provided ICD-10: R10.13, K29.70, K20.9 . 01 CPT . 879942, 163678, 999831, Q83948, 162029 Performed at: [facility] [address], [place], [place] [id number] MD Rashad Odonnell MD Phone: [phone]
[2019-08-25] MEDS: SODIUM CHLORIDE 0.9% 1,000 ML 200 ML IV (13:13)
--- NOTE | 2019-08-25 13:38 | PM.PREOP ---
Pre-operative Note COVID-19 COVID-19 status: Negative Result date/Date tested (Pos, Neg/Pending): 08/22/19 Interval Note History & Physical reviewed/Exam performed by Physician: Yes Changes to H&P: No ASA Class (for procedural sedation): II
--- NOTE | 2019-08-25 13:41 | PM.OP.ENDO ---
Operative Date/Time/Diagnoses Date of procedure: 08/25/19 Time of procedure: 13:41 Pre-op diagnosis: Acid reflux, epigastric discomfort, belching Post-op diagnosis: other (Hill grade 4 hiatal hernia, gastritis, reflux esophagitis) Procedure & Clinicians Study performed: EGD with cold forceps biopsies Same procedure as scheduled: Yes Indications: This is a 68-year-old woman who has had some epigastric pain, belching, and reflux symptoms Surgeon: Amanda Brown Procedure Notes SCOAP/Timeout: Performed Procedure in detail: The patient was brought to the room and placed in left lateral decubitus position with all bony prominences padded. A bite block was positioned in the patient's mouth to protect the lips, teeth, and tongue for the procedure. A time-out was performed and then the patient was given procedural sedation starting with 2 mg of Versed and [100] mcg of fentanyl. Total of 4 mg of Versed and 100 micro g of fentanyl were given for the entire procedure Vitals were monitored throughout the procedure and remained stable. Once adequately sedated, the procedure was begun. The lubricated gastroscope was passed through the bite block and across the tongue and into the esophagus without incident. A tubular view of the esophagus was maintained as the scope was advanced through the esophagus and into the stomach. The scope was advanced through the stomach and to the pylorus. The scope was gently popped through the pylorus and into the duodenal bulb. The scope was flexed and advanced into the second and third portions of the duodenum. The duodenum and duodenal bulb appeared mildly inflamed. No masses or other abnormalities were seen. The scope was withdrawn into the stomach. The stomach appeared mildly inflamed, with evidence of diffuse endoscopic gastritis and some healed erosions in the gastric antrum. Biopsies were taken at the side The scope was retroflexed and the gastric cardia was examined. A healed grade 4 hiatal hernia was seen, with a large gap of the GE junction around the scope, with a 3 cm x 4 cm hiatal hernia. No erosions or ulcers were seen at this location. The scope was then straightened, and withdrawn into the esophagus. The Z-line appeared abnormal with thick tongues of salmon-colored mucosa coming up into the distal esophagus. Biopsies were taken at this site in the distal esophagus. The scope was then withdrawn through the esophagus with a tubular view. The scope was then withdrawn from the patient the procedure was concluded. The patient tolerated the procedure well and was transferred to the PACU in stable condition. 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
[2019-08-25] MEDS: LIDOCAINE 4% SOLN 50 ML 20 ML TOP (13:58)
[2019-08-25] MEDS: MIDAZOLAM 5 MG/5 ML VIAL IV (13:59)
[2019-08-25] MEDS: fentaNYL 250 MCG/5 ML INJ IV (14:00)
== END 2019-08-25 14:50 | disposition home or self-care (01) ==
PROVIDERS: PCP Family Medicine; Referring Provider Surgery; Visit Provider Surgery
PROC: 0DJ08ZZ Inspection of Upper Intestinal Tract, Via Natural or Artificial Opening Endoscopic (ICD-10-PCS; CPT 43235; principal; 2019-08-25 13:45)
DX: K21.0 Gastro-esophageal reflux disease with esophagitis (principal); K44.9 Diaphragmatic hernia without obstruction or gangrene; K29.50 Unspecified chronic gastritis without bleeding; I10 Essential (primary) hypertension; E78.5 Hyperlipidemia, unspecified; F41.9 Anxiety disorder, unspecified; F32.9 Major depressive disorder, single episode, unspecified
CPT/HCPCS: 43239; 99152; J2250; J3010

== ENCOUNTER → 2019-09-02 10:20 | Outpatient (CLI) | payer MEDICARE, OTHER, SELFPAY ==
[2019-08-27 11:23] VITALS: BMI 22.2
--- NOTE | 2019-09-02 10:21 | DI.RAD.S_ITS ---
PROCEDURE: FL UPPER GI W AIR INDICATIONS: hiatal hernia, belching, epigastric pain COMPARISON: [facility], CT, CT ABDOMEN PELVIS W CON, 08/14/2019, 11:43. FINDINGS: KUB: Preprocedural management rep film demonstrates a normal bowel gas pattern. No suspicious abdominal calcifications. Visualized solid organ contours appear normal. Bony structures appear unremarkable. Esophagus: Esophageal mucosa is normal on air-contrast views. On single-contrast views, there is mildly decreased esophageal peristalsis. No strictures, or diverticula. Mildly tortuous course of the distal esophagus, with unchanged appearance since the prior recent CT from 08/14/19 No hiatal hernia or elicited gastroesophageal reflux. Stomach: The stomach is normally distensible, with normal rugal fold thickness. No mucosal masses or ulcers. Pylorus and duodenal bulb appear normal in morphology. Duodenal folds are normal in thickness as well. IMPRESSION: Mild esophageal dysmotility Dictated by: Liam Milian M.D. on 09/02/2019 at 11:30 Approved by: Liam Milian M.D. on 09/02/2019 at 11:33
== END ==
PROVIDERS: PCP Family Medicine; Referring Provider Surgery; Visit Provider Surgery
DX: K44.9 Diaphragmatic hernia without obstruction or gangrene (principal); R14.2 Eructation; R10.13 Epigastric pain; K22.4 Dyskinesia of esophagus
CPT/HCPCS: 74240

== ENCOUNTER → 2019-09-02 10:58 | Outpatient (CLI) | payer MEDICARE, OTHER, SELFPAY ==
[2019-08-27 11:23] VITALS: BMI 22.2
[2019-09-02 11:50] LABS: Hemoglobin A1C% w Est Avg Glu 5.5 % (4.0-6.0)
[2019-09-02 12:19] LABS: BUN Creatinine Ratio 21.3 (6-22); Blood Urea Nitrogen 16 mg/dL (7-17); Calcium 9.4 mg/dL (8.4-10.2); Carbon Dioxide 28 mmol/L (22-32); Chloride 98 mmol/L (98-107); Cholesterol 141 mg/dL (140-199); Estimated Glomerular Filt Rate > 60.0 mL/min (>60); Glucose 105 mg/dL (80-110); HDL Cholesterol 53 mg/dL (40-60); HEMOLYSIS < 15 (0-50); LDL Cholesterol Calculated 63 mg/dL (<100); Potassium 4.6 mmol/L (3.4-5.1); Sodium 136 mmol/L (137-145); Triglycerides 125 mg/dL (35-150)
== END ==
PROVIDERS: PCP Family Medicine; Referring Provider Family Medicine; Visit Provider Family Medicine
DX: R73.9 Hyperglycemia, unspecified (principal); I10 Essential (primary) hypertension
CPT/HCPCS: 36415; 80048; 80061; 83036

== ENCOUNTER → 2020-01-05 11:00 | Outpatient (CLI) | payer MEDICARE, OTHER, SELFPAY ==
[2019-08-27 11:23] VITALS: BMI 22.2
--- NOTE | 2020-01-05 | DI.US.S_ITS ---
PROCEDURE: US THYROID INDICATIONS: Nontoxic single thyroid nodule TECHNIQUE: Real-time scanning was performed of the thyroid gland, with image documentation. COMPARISON: [facility], US, US THYROID, 10/16/2018, 10:45. [facility], US, US THYROID, 04/14/2019, 11:47. FINDINGS: Right: Thyroid lobe measures 3.7 x 1.5 x 1.4 cm, and is homogeneous in echotexture. Left: Thyroid lobe measures 3.7 x 1.3 x 1.6 cm, and is homogenous in echotexture. Isthmus: 2.2 mm thick. Nodule number: 1 Location: Left inferior Size: 1.9 x 1.5 x 1.3 cm. Composition: Predominantly solid Echogenicity: Hypoechoic Shape: Wider than tall Margins: Smooth Echogenic foci: None Total points: 4 ACR TI-RADS category: 4 Nodule number: 2 Location: Left mid Size: 0.8 x 0.5 x 0.6 cm. Composition: Predominantly cystic Echogenicity: Hypoechoic Shape: Wider than tall Margins: Smooth Echogenic foci: None Total points: 2 ACR TI-RADS category: 2 IMPRESSION: Stable left thyroid nodules compared to April 14, 2019 and October 16, 2018. ACR TI-RADS definitions and recommendations: TI-RADS 1 (benign): 0 points. FNA not needed. TI-RADS 2 (not suspicious): 2 points. FNA not needed. TI-RADS 3 (mildly suspicious): 3 points. * FNA if 2.5 cm or larger, follow up if 1.5 cm or larger (at 1, 3, and 5 years). TI-RADS 4 (moderately suspicious): 4-6 points. * FNA if 1.5 cm or larger, follow up if 1 cm or larger (at 1, 2, 3, and 5 years). TI-RADS 5 (highly suspicious): 7 points or more. * FNA if 1 cm or larger, follow up if 0.5 cm or larger (every year for 5 years). Dictated by: Valentine Dooley MD, PhD on 01/06/2020 at 14:55 Approved by: Valentine Dooley MD, PhD on 01/06/2020 at 15:14
== END ==
PROVIDERS: PCP Family Medicine; Referring Provider Family Medicine; Visit Provider Family Medicine
DX: E04.2 Nontoxic multinodular goiter (principal)
CPT/HCPCS: 76536

== ENCOUNTER → 2021-03-23 09:39 | Outpatient (CLI) | payer MEDICARE, OTHER, SELFPAY ==
[2019-08-27 11:23] VITALS: BMI 22.2
--- NOTE | 2021-03-23 | DI.US.S_ITS ---
PROCEDURE: US THYROID INDICATIONS: THYROID NODULES TECHNIQUE: Real-time scanning was performed of the thyroid gland, with image documentation. COMPARISON: [facility], US, US THYROID, 01/05/2020, 11:16. FINDINGS: Right: Thyroid lobe measures 3.7 x 1.5 x 1.4 cm, and contains multiple less than 5 mm nodules. Left: Thyroid lobe measures 3.6 x 1.4 x 1.6 cm and contains 2 measured nodules Isthmus: 2.6 mm thick. Nodule number: 1 Location: Right middle pole Size: 0.8 x 0.7 x 0.4 cm, previously 0.8 x 0.6 x 0.5 cm. Composition: Cystic Echogenicity: Anechoic Shape: wider than tall. Margins: Smooth Echogenic foci: Non Total points: 0 ACR TI-RADS category: Benign Nodule number: 2 Location: Left lower pole Size: 1.5 x 1.2 x 1.1 cm, previously 1.9 x 1.3 x 1.5 cm cm. Composition: Predominantly solid Echogenicity: Hypoechoic Shape: wider than tall. Margins: Smooth Echogenic foci: Punctate Total points: 7 ACR TI-RADS category: Highly suspicious IMPRESSION: The left lobe lower pole nodule is smaller than previously. By imaging characteristics, it is highly suspicious. It has been biopsied twice previously. Based on decrease in size in the 2 prior biopsies, it is unlikely to require further tissue evaluation at this time period Comment: Recommend follow-up thyroid ultrasound in 1 year period ACR TI-RADS definitions and recommendations: TI-RADS 1 (benign): 0 points. FNA not needed. TI-RADS 2 (not suspicious): 2 points. FNA not needed. TI-RADS 3 (mildly suspicious): 3 points. * FNA if 2.5 cm or larger, follow up if 1.5 cm or larger (at 1, 3, and 5 years). TI-RADS 4 (moderately suspicious): 4-6 points. * FNA if 1.5 cm or larger, follow up if 1 cm or larger (at 1, 2, 3, and 5 years). TI-RADS 5 (highly suspicious): 7 points or more. * FNA if 1 cm or larger, follow up if 0.5 cm or larger (every year for 5 years). Dictated by: Rafa Goldsmith M.D. on 03/23/2021 at 18:19 Approved by: Rafa Goldsmith M.D. on 03/23/2021 at 18:24
== END ==
PROVIDERS: PCP Family Medicine; Referring Provider Family Medicine; Visit Provider Family Medicine
DX: E04.1 Nontoxic single thyroid nodule (principal)
CPT/HCPCS: 76536

== ENCOUNTER → 2022-08-27 12:13 | Outpatient (CLI) | payer MEDICARE, OTHER, SELFPAY ==
[2019-08-27 11:23] VITALS: BMI 22.2
--- NOTE | 2022-08-27 12:29 | DI.DEXA.S_ITS ---
\ Bone Density Report Name: LOBO VIVEROS Age: 71 Sex: Female Ethnicity: Date of : 1950 Indication: osteopenia; Referring Provider: FREDI ALVAREZ Study: Bone densitometry was performed. Exam Date: August 27, 2022 Accession number: [id number] Bone Density: Region BMD T-score Z-score Classification AP Spine(L1-L4) 0.833 -1.9 0.3 Osteopenia Femoral Neck (Left) 0.460 -3.5 -1.6 Osteoporosis Total Hip (Left) 0.706 -1.9 -0.3 Osteopenia Femoral Neck (Right) 0.551 -2.7 -0.7 Osteoporosis Total Hip (Right) 0.764 -1.5 0.2 Osteopenia Total Hip Mean 0.735 -1.7 -0.1 Osteopenia World Health Organization criteria for BMD impression classify patients as: Normal (T-score at or above -1.0), Osteopenia (T-score between -1.0 and -2.5), or Osteoporosis (T-score at or below -2.5). 10-year Fracture Risk: FRAX not reported because: Some T-score for Spine Total or Hip Total or Femoral Neck at or below -2.5 Previous Exams: -- Region Exam Age BMD T-score BMD Change BMD Change Date g/cm2 vs Baseline vs Previous -- AP Spine (L1-L4) 08/27/2022 71 0.833 -1.9 -0.027 (-3.1%)# -0.027 (-3.1%)# 06/23/2018 67 0.860 -1.7 Total Hip(Left) 08/27/2022 71 0.706 -1.9 -0.132 (-15.7%)# -0.132 (-15.7%)# 06/23/2018 67 0.838 -0.9 Total Hip(Right) 08/27/2022 71 0.764 -1.5 -0.082 (-9.7%)# -0.082 (-9.7%)# 06/23/2018 67 0.846 -0.8 -- *Denotes significance at 95% confidence level, LSC for AP Spine = 0.022 g/cm2, LSC for Total Hip = 0.027 g/cm2 # Denotes dissimilar scan types or analysis methods Impression: The patient has osteoporosis, based on the Left Femoral Neck T-score. No significant bone loss was observed. Discussion: INCREASED RISK OF FRACTURE. BONE DENSITY IS UNDESIRABLY LOW AT ONE OR MORE SKELETAL SITES, CONSISTENT WITH POSTMENOPAUSAL OSTEOPOROSIS. This patient's lowest T-score meets the World Health Organization's (WHO) criteria for osteoporosis at one or more sites (T-score -2.5 or below). In untreated patients, the risk of osteoporotic fracture increases approximately two-fold for each 1.0 SD decrease in T-score. Low bone density is not the only risk factor for fracture; also consider factors such as patient's age, frailty or poor health, risk of falling, risk of injury, previous osteoporotic fracture, family history of osteoporosis, cigarette smoking, low body weight, etc. Not everyone with low bone mineral density has osteoporosis; osteomalacia and other metabolic bone disorders should also be considered. Patients who have osteoporosis should be evaluated for specific diseases and conditions (secondary causes) that may cause or contribute to bone loss. The [place] [employer]ocrin[employer] (AACE) and National Osteoporosis Foundation (NOF) recommend pharmacologic intervention for all postmenopausal women whose T-score is in this range. The patient should follow a healthful lifestyle (good nutrition with adequate calcium and vitamin D, and appropriate weight-bearing exercise). Follow-Up: Consider a repeat BMD and Vertebral Fracture Assessment (VFA) exam in 2 years or sooner if medically necessary, to reassess this patient's status. Reported by: THOMAS LI M.D. on 08/27/2022 12:44:00 PM.
== END ==
PROVIDERS: PCP Family Medicine; Referring Provider Family Medicine; Visit Provider Family Medicine
DX: M81.0 Age-related osteoporosis without current pathological fracture (principal); E55.9 Vitamin D deficiency, unspecified
CPT/HCPCS: 77080

== ENCOUNTER 2023-07-05 14:37 | Emergency (ER) | payer MEDICARE, OTHER, SELFPAY ==
[2019-08-27 11:23] VITALS: BMI 22.2
[2023-07-05] VITALS (11 sets, daily range): BP systolic 145–163; BP diastolic 78–83; PULSE 86–100; RESP 16–23; TEMP 36.8; O2SAT 97–100; BMI 20.2
--- NOTE | 2023-07-05 15:03 | ED_ITS ---
HPI - General Adult General Chief complaint: Dizziness Stated complaint: dizzy, high bp Time Seen by Provider: 07/05/23 14:56 Source: patient Mode of arrival: Ambulatory History of Present Illness HPI narrative: 72-year-old female who is here for evaluation of dizziness and high blood pressure. Patient states that her symptoms started this morning. It does not a room spinning sensation but more of just a unsteadiness on her feet. No chest pain, no palpitations, does have a slight headache, no vision changes, no sinus congestion, no abdominal pain. She is having burping which is not new. She also states that she is having tingling in both of her legs. No upper extremity symptoms. No abdominal pain. Related Data Home Medications Medication Instructions Recorded Confirmed amlodipine 5 mg tablet 5 mg PO DAILY 09/26/18 09/03/19 atorvastatin 20 mg tablet 20 mg PO DAILY 09/26/18 09/03/19 olopatadine 0.1 % eye drops 1 drp ophthalmic (eye) DIRECTED 09/26/18 09/03/19 lisinopril 40 mg tablet 40 mg PO DAILY 04/14/19 09/03/19 calcium carbonate 200 mg calcium 200 mg PO QID 07/28/19 09/03/19 (500 mg) chewable tablet (Tums) alprazolam 0.25 mg tablet 0.25 mg PO BEDTIME PRN Anxiety 08/20/19 09/03/19 aspirin 325 mg tablet,delayed 325 mg PO DAILY 08/20/19 09/03/19 release citalopram 20 mg tablet 20 mg PO DAILY 08/20/19 09/03/19 Previous Rx's Medication Instructions Recorded ketorolac 10 mg tablet 10 mg PO Q6H PRN pain #14 tabs 07/31/19 Allergies Allergy/AdvReac Type Severity Reaction Status Date / Time No Known Drug Allergies Allergy Verified 07/05/23 14:53 Review of Systems Review of Systems ROS Unobtainable: All systems reviewed & are unremarkable except as noted in HPI and below Patient History Medical History (Updated 07/05/23 @ 17:20 by Babak Gray DO) Depression Anxiety Dyslipidemia Hypertension Surgical History History of cataract surgery Hx of appendectomy Family History Father Hypertension Mother Hypertension Social History marital status: household members: spouse Smoking Status: Never smoker alcohol intake: never substance use type: does not use Smoking Status: Never smoker alcohol intake frequency: 0-2 drinks per day Substance Use Type: does not use Exam Initial Vital Signs Initial Vital Signs: Vital Signs Temperature 98.3 F 07/05/23 14:40 Pulse Rate 100 H 07/05/23 14:40 Respiratory Rate 16 07/05/23 14:40 Blood Pressure 163/83 H 07/05/23 14:40 Pulse Oximetry 98 07/05/23 14:40 Oxygen Delivery Method Room Air 07/05/23 14:40 Const General: cooperative, comfortable and No ill appearing HENMT Head: normal to inspection and normocephalic Resp Effort & Inspection: normal respiratory effort Auscultation: clear to auscultation bilaterally Cardio Rate: regular rate Rhythm: regular rhythm GI Inspection: normal to inspection and non-distended Palpation: soft Skin General: no rashes or lesions noted Neuro General: patient alert, patient awake, patient oriented x3 and moves all extremities Extrem General: normal to inspection and capillary refill normal Course Orders Ordered: ED Orders 07/05/23 14:52 Complete Blood Count AUTO DIFF Stat Comprehensive Metabolic Panel Stat Ethanol (ETOH) Stat Lipase Stat Troponin & CK Cardiac Panel Stat 07/05/23 15:04 CT head/brain wo con Stat 07/05/23 15:43 EKG-12 Lead Stat Discontinued Medications Sodium Chloride (Normal Saline 0.9%) 1,000 mls @ 500 mls/hr IV BOLUS ONE Stop: 07/05/23 17:02 Last Admin: 07/05/23 15:23 Dose: 500 mls/hr Documented By: MICHAEL Ondansetron HCl (Ondansetron 4 Mg/2 Ml Inj) 4 mg IV NOW ONE Stop: 07/05/23 16:16 Last Admin: 07/05/23 16:17 Dose: 4 mg Documented By: MICHAEL Potassium Chloride (Potassium Chloride 20 Meq Tab) 40 meq PO NOW ONE Stop: 07/05/23 16:07 Last Admin: 07/05/23 16:10 Dose: 40 meq Documented By: MICHAEL Vital Signs Vital signs: Vital Signs - 8 hr 07/05/23 14:40 07/05/23 14:45 07/05/23 14:48 Temperature 98.3 F Pulse Rate 100 H 95 H Respiratory Rate 16 Blood Pressure 163/83 H 163/83 H Pulse Oximetry 98 97 Oxygen Delivery Method Room Air 07/05/23 14:48 07/05/23 15:00 07/05/23 15:33 Temperature Pulse Rate 90 90 90 Respiratory Rate Blood Pressure Pulse Oximetry 98 98 98 Oxygen Delivery Method Room Air 07/05/23 16:04 Temperature Pulse Rate 90 Respiratory Rate Blood Pressure Pulse Oximetry 98 Oxygen Delivery Method Medical Decision Making Lab Data Lab results reviewed: Yes I reviewed the patient's lab results. 07/05/23 14:52 07/05/23 14:52 Labs: Lab Results 07/05/23 Range/Units 14:52 WBC 17.0 H (4.5-11.0) X10^3/uL RBC 4.50 (4.0-5.2) X10^6/uL Hgb 13.8 (12.0-16.0) g/dL Hct 41.2 (36-46) % MCV 91.6 (80-100) fL MCH 30.6 (26-34) PG MCHC 33.5 (30-36) % RDW 12.8 (11.6-14.8) % Plt Count 251 (150-400) X10^3/uL Neut % (Auto) 91.5 H (50-75) % Lymph % (Auto) 5.3 L (25-40) % Kay % (Auto) 2.6 L (3-14) % Eos % (Auto) 0.1 L (2-4) % Baso % (Auto) 0.5 (0-2) % Neut # (Auto) 79850 H (1085-1870) /uL Lymph # (Auto) 900 L (9447-6639) /uL Kay # (Auto) 400 (0-900) /uL Eos # (Auto) 0 (0-450) /uL Baso # (Auto) 100 (0-100) /uL Sodium 137 (137-145) mmol/L Potassium 2.9 L (3.4-5.1) mmol/L Chloride 98 (98-107) mmol/L Carbon Dioxide 28 (22-32) mmol/L BUN 15 (7-17) mg/dL Creatinine 0.71 (0.52-1.04) mg/dL Estimated GFR > 60 (>60) mL/min BUN/Creatinine Ratio 21.1 (6-22) Glucose 252 H (80-110) mg/dL Calcium 9.1 (8.4-10.2) mg/dL Total Bilirubin 0.7 (0.2-1.3) mg/dL AST 29 (14-36) IU/L ALT 19 (<35) IU/L Alkaline Phosphatase 105 (38-126) U/L Total Creatine Kinase 114 (30-135) U/L Troponin I < 0.012 (0.01-0.034) ng/mL Total Protein 8.5 H (6.3-8.2) g/dL Albumin 4.7 (3.5-5.0) g/dL Globulin 3.8 (1.7-4.1) g/dL Albumin/Globulin Ratio 1.2 (1.0-2.8) Lipase 211 (23-300) U/L Ethyl Alcohol < 10 ( - 10) mg/dL Imaging Data CT scan - head: Radiologist's Impression: PROCEDURE: CT HEAD/BRAIN WO CON INDICATIONS: Headache, dizziness TECHNIQUE: Noncontrast 4.5 mm thick angled axial sections acquired from the foramen magnum to the vertex, with coronal and sagittal reformats. For radiation dose reduction, the following was used: automated exposure control, adjustment of mA and/or kV according to patient size. COMPARISON: [facility], CT, CT HEAD/BRAIN WO CON, 09/26/2018, 16:03. FINDINGS: Image quality: Diagnostic. CSF spaces: Basal cisterns are patent. No extra-axial fluid collections. The ventricles are symmetric in size and shape. Brain: No intracranial bleeds or masses. There is cerebral volume loss for age, with resultant ventricular and sulcal prominence. There are periventricular and deep white matter chronic small vessel ischemic changes. There is intracranial internal carotid artery atherosclerosis. The basilar artery is somewhat ectatic and tortuous, present to a slightly lesser degree in 2019. Skull and face: Calvarium and visualized facial bones appear intact, without suspicious lesions. Sinuses: Visualized sinuses and mastoids are clear. IMPRESSION: No acute intracranial pathology. ECG Data Attestation: I personally reviewed and interpreted this ECG as follows: Interpretation: Sinus rhythm Ventricular rate 89 First-degree AV block KS interval 236 Left axis deviation LVH Nonspecific ST T wave changes MDM Narrative Medical decision making narrative: Workup here in the emergency department is very reassuring. Head CT shows no signs of acute pathology. She was able to tolerate oral intake. Patient did take potassium here in the ER. Belching that she was describing is not new. Blood pressure improved without specific intervention here in the ER. Low suspicion for ACS, TIA, CVA. Will discharge patient home with instructions for follow-up with primary provider. Patient and were given return precautions. They expressed understanding and agreement. Discharge Plan Departure Patient Disposition: Home Clinical Impression: Facial paresthesia Instructions: DI for Numbness/Tingling Activity Restrictions/Additional Instructions: Continue to take all of your medications as directed. I recommend on Saturday you contact your primary doctor for a follow-up. Return to the emergency department for new or worsening symptoms. Prescriptions: No Action alprazolam 0.25 mg tablet 0.25 mg PO BEDTIME PRN (Reason: Anxiety) citalopram 20 mg tablet 20 mg PO DAILY aspirin 325 mg tablet,delayed release (DR/EC) 325 mg PO DAILY lisinopril 40 mg tablet 40 mg PO DAILY atorvastatin 20 mg tablet 20 mg PO DAILY amlodipine 5 mg tablet 5 mg PO DAILY olopatadine 0.1 % drops 1 drp ophthalmic (eye) DIRECTED Patient Comments: Bilateral calcium carbonate [Tums] 200 mg calcium (500 mg) Tablet,Chewable 200 mg PO QID ketorolac 10 mg tablet 10 mg PO Q6H PRN (Reason: pain) Qty: 14 0RF Referrals: Patricia Tamayo MD [Primary Care Provider] - Stand Alone Forms: Patient Portal/API
[2023-07-05 15:13] LABS: Add Manual Diff / Slide Review NO; Basophils Absolute Auto 100 /uL (0-100); Basophils Percent Auto 0.5 % (0-2); Eosinophils Absolute Auto 0 /uL (0-450); Eosinophils Percent Auto 0.1 % (2-4); Hematocrit 41.2 % (36-46); Hemoglobin 13.8 g/dL (12.0-16.0); Lymphocytes Absolute Auto 900 /uL (1100-4500); Lymphocytes Percent Auto 5.3 % (25-40); Mean Corpuscular HGB Conc 33.5 % (30-36); Mean Corpuscular Hemoglobin 30.6 PG (26-34); Mean Corpuscular Volume 91.6 fL (80-100); Monocytes Absolute Auto 400 /uL (0-900); Monocytes Percent Auto 2.6 % (3-14); Neutrophils Absolute Auto 15500 /uL (1500-7000); Neutrophils Percent Auto 91.5 % (50-75); Platelet Count 251 X10^3/uL (150-400); Red Cell Distribution Width 12.8 % (11.6-14.8)
[2023-07-05 15:19] LABS: Alanine Aminotransferase 19 IU/L (<35); Albumin 4.7 g/dL (3.5-5.0); Albumin Globulin Ratio 1.2 (1.0-2.8); Alkaline Phosphatase 105 U/L (38-126); Aspartate Aminotransferase 29 IU/L (14-36); BUN Creatinine Ratio 21.1 (6-22); Bilirubin Total 0.7 mg/dL (0.2-1.3); Blood Urea Nitrogen 15 mg/dL (7-17); Calcium 9.1 mg/dL (8.4-10.2); Carbon Dioxide 28 mmol/L (22-32); Chloride 98 mmol/L (98-107); Estimated Glomerular Filt Rate > 60 mL/min (>60); Globulin 3.8 g/dL (1.7-4.1); Glucose 252 mg/dL (80-110); HEMOLYSIS < 15 (0-50); Potassium 2.9 mmol/L (3.4-5.1); Sodium 137 mmol/L (137-145); Total Protein 8.5 g/dL (6.3-8.2)
[2023-07-05 15:22] LABS: Creatine Kinase 114 U/L (30-135); Ethanol (ETOH) < 10 mg/dL; Lipase 211 U/L (23-300)
[2023-07-05] MEDS: SODIUM CHLORIDE 0.9% 1,000 ML 500 ML IV (15:23)
[2023-07-05 15:33] LABS: Troponin I < 0.012 ng/mL (0.01-0.034)
[2023-07-05] MEDS: POTASSIUM CHLORIDE 20 MEQ TAB 40 MEQ PO (16:10)
[2023-07-05] MEDS: ONDANSETRON 4 MG/2 ML INJ IV (16:17)
== END 2023-07-05 17:47 | disposition home or self-care (01) ==
PROVIDERS: Emergency Provider Emergency Medicine; PCP Family Medicine
DX: R20.2 Paresthesia of skin (principal); R42 Dizziness and giddiness; I10 Essential (primary) hypertension
CPT/HCPCS: 36415; 70450; 80053; 80320; 82550; 83690; 84484; 85025; 93005; 96374; 99284; 99285; J2405

== ENCOUNTER → 2023-08-29 12:12 | Outpatient (CLI) | payer MEDICARE, OTHER, SELFPAY ==
[2019-08-27 11:23] VITALS: BMI 22.2
--- NOTE | 2023-08-29 12:14 | DI.RAD.S_ITS ---
PROCEDURE: XR DEXA AXIAL SKELETON INDICATIONS: OSTEOPOROSIS SCREENING COMPARISON: [facility], CR, XR DEXA AXIAL SKELETON, 08/27/2022, 12:29. [facility], CR, XR DEXA AXIAL SKELETON, 06/23/2018, 10:04. FINDINGS: Lumbar Spine: Bone mineral density is 0.846 g/cm2, T score -1.8. Prior DEXA was performed using dissimilar scan type or analysis method. Left Hip: Bone mineral density is 0.729 g/cm2, T score -1.7. Prior DEXA was performed using dissimilar scan type or analysis method. Left Femoral Neck: Bone mineral density 0.492 g/cm2, T score -3.2. Right Hip: Bone mineral density 0.772 g/cm2, T score -1.4. Prior DEXA was performed using dissimilar scan type or analysis method. Right Femoral Neck: Bone mineral density 0.481 g/cm2, T score -3.3. Fracture Risk Calculation (when applicable): FRAX score not reported due to T-score less than -2.5. (T score greater or equal to -1.0 to: NORMAL) (T score from -1.1 to -2.4: OSTEOPENIA) (T score less than or equal to -2.5: OSTEOPOROSIS) IMPRESSION: By WHO criteria, the patient has osteoporosis. Follow-up guidelines as follows: Osteoporosis: Consider a repeat DEXA and Vertebral Fracture Assessment (VFA) exam in 2 years or sooner if medically necessary, to reassess this patient's status. Osteopenia: Consider a repeat DEXA in 2-3 years to reassess this patient's status, or if there is a new clinical indication. Normal: Consider a repeat DEXA in 5 years or sooner, or if there is a new clinical indication. All treatment decisions require clinical judgment and consideration of individual patient factors, including patient preferences, comorbidities, previous drug use, risk factors not captured in the FRAX model (e.g., frailty, falls, vitamin D deficiency, increased bone turnover, interval significant decline in bone density ) and possible under- or over-estimation of fracture risk by FRAX. In addition, the NOF Guide recommends that FDA-approved medical therapies be considered in postmenopausal women and men age >= 50 years with a: * Hip or vertebral (clinical or morphometric) fracture * T-score of <=-2.5 at the spine or hip * Ten-year fracture probability by FRAX of >= 3% for hip fracture or >=20% for major osteoporotic fracture. People with diagnosed cases of osteoporosis or at high risk for fracture should have regular bone mineral density tests. For patients eligible for Medicare, routine testing is allowed once every 2 years. The testing frequency can be increased to one year for patients who have rapidly progressing disease, those who are receiving or discontinuing medical therapy to restore bone mass, or have additional risk factors. Approved by: Dayton Livingston M.D. on 08/29/2023 at 21:26
== END ==
LOC: RAD 12:13
PROVIDERS: PCP Family Medicine; Referring Provider Family Medicine; Visit Provider Family Medicine
DX: M81.0 Age-related osteoporosis without current pathological fracture (principal)
CPT/HCPCS: 77080

== ENCOUNTER → 2024-02-20 09:45 | Outpatient (CLI) | payer MEDICARE, OTHER, SELFPAY ==
[2019-08-27 11:23] VITALS: BMI 22.2
--- NOTE | 2024-02-20 09:46 | DI.NM.S_ITS ---
PROCEDURE: [place] PARATHYROID RADIOPHARMACEUTICAL: 27.5 mCi Tc-99m sestamibi IV. INDICATIONS: abnormal findings of blood chemistry TECHNIQUE: After intravenous administration of Tc-99m sestamibi, patient refused to finish exam. COMPARISON: None. FINDINGS: Radiotracer was injected and patient declined to do any imaging. IMPRESSION: Radiotracer was injected and patient declined to do any imaging. Dictated by: Ammon Cooley M.D. on 02/20/2024 at 16:16 Approved by: Ammon Cooley M.D. on 02/20/2024 at 16:17
== END ==
PROVIDERS: PCP Family Medicine; Referring Provider Family Medicine; Visit Provider Family Medicine
DX: R79.89 Other specified abnormal findings of blood chemistry (principal)
CPT/HCPCS: 78070; A9500

== ENCOUNTER → 2024-03-13 13:29 | Outpatient (CLI) | payer MEDICARE, OTHER, SELFPAY ==
[2019-08-27 11:23] VITALS: BMI 22.2
--- NOTE | 2024-03-13 13:30 | DI.NM.S_ITS ---
PROCEDURE: [place] PARATHYROID RADIOPHARMACEUTICAL: 27 mCi Tc-99m sestamibi IV. INDICATIONS: ELEV PARATHY HORMONE TECHNIQUE: After intravenous administration of Tc-99m sestamibi, anterior planar images of the neck and mediastinum were obtained at approximately 10 minutes and 2-3 hours. COMPARISON: [place], [place], [place] PARATHYROID, 02/20/2024, 9:46. FINDINGS: On the early images, the thyroid gland is bilobed and has normal size and morphology. There is no focal increased activity in the thyroid bed. The delayed images show no preferential tracer retention in the thyroid bed to suggest parathyroid adenoma. IMPRESSION: Limited exam with only static images. No definite evidence of parathyroid adenoma. If clinical concern persists, consider ultrasound for further evaluation or CT parathyroid protocol. Dictated by: Ammon Cooley M.D. on 03/13/2024 at 16:43 Approved by: Ammon Cooley M.D. on 03/13/2024 at 16:46
== END ==
PROVIDERS: PCP Family Medicine; Referring Provider Family Medicine; Visit Provider Family Medicine
DX: R79.89 Other specified abnormal findings of blood chemistry (principal)
CPT/HCPCS: 78070; A9500

== ENCOUNTER 2024-03-23 12:04 | Emergency (ER) | payer MEDICARE, OTHER, SELFPAY ==
[2019-08-27 11:23] VITALS: BMI 22.2
[2024-03-23] VITALS (10 sets, daily range): BP systolic 106–113; BP diastolic 65–72; PULSE 86–103; RESP 17–22; TEMP 37.2; O2SAT 96–98; BMI 24.0
--- NOTE | 2024-03-23 12:39 | DI.RAD.S_ITS ---
PROCEDURE: XR CHEST 1V INDICATIONS: chest pain TECHNIQUE: One view of the chest was acquired. COMPARISON: [facility], CR, XR CHEST 1V, 08/04/2019, 9:54. [facility], CR, XR CHEST 1V, 07/27/2019, 23:39. FINDINGS: Surgical changes and devices: None. Lungs and pleura: Lungs are clear. No pleural effusions or pneumothorax. Mediastinum: Mediastinal contours appear normal. Heart size is normal. Bones and chest wall: No suspicious bony lesions. Overlying soft tissues appear unremarkable. IMPRESSION: No acute cardiopulmonary abnormality is seen. Dictated by: Bryan Simmons M.D. on 03/23/2024 at 13:43 Approved by: Bryan Simmons M.D. on 03/23/2024 at 13:43
--- NOTE | 2024-03-23 12:39 | EKG_ITS ---
[place] [address] [address] [place] [id number] Test Date: 2024-03-23 Pat Name: Wen Marsh Department: [facility] Room: Gender: Female Chef Head: ELIZABETH : 1950 Requested By: Order Number: [id number] Reading MD: Miki Ang MD Measurements Intervals [place] Rate: 109 P: -11 HI: 192 QRS: -39 QRSD: 168 T: -27 QT: 428 QTc: 576 Interpretive Statements Sinus tachycardia with fusion complexes Left axis deviation Right bundle branch block Minimal voltage criteria for LVH, may be normal variant ( R in aVL ) Electronically Signed On 03-23-2024 16:46:44 PST by Miki Ang MD
--- NOTE | 2024-03-23 13:03 | EKG_ITS ---
[place] [id number] [place] [id number] Test Date: 2024-03-23 Pat Name: Wen Marsh Department: Room: Gender: Female Training Generalist: ELIZABETH : 1950 Requested By: Order Number: [id number] Reading MD: Miki Ang MD Measurements Intervals [place] Rate: 103 P: 77 ND: 184 QRS: -39 QRSD: 108 T: 3 QT: 348 QTc: 455 Interpretive Statements Sinus tachycardia with premature supraventricular complexes Left axis deviation Incomplete right bundle branch block Minimal voltage criteria for LVH, may be normal variant ( R in aVL ) Anterior infarct , age undetermined NO SIGNIFICANT CHANGE FROM PRIOR TRACING Electronically Signed On 03-24-2024 6:43:02 PST by Miki Ang MD
[2024-03-23 13:42] LABS: Add Manual Diff / Slide Review NO; Basophils Absolute Auto 100 /uL (0-100); Basophils Percent Auto 0.7 % (0-2); Eosinophils Absolute Auto 100 /uL (0-450); Hematocrit 42.8 % (36-46); Hemoglobin 14.3 g/dL (12.0-16.0); Lymphocytes Absolute Auto 1800 /uL (1100-4500); Mean Corpuscular HGB Conc 33.4 % (30-36); Mean Corpuscular Hemoglobin 30.1 PG (26-34); Mean Corpuscular Volume 90.1 fL (80-100); Monocytes Absolute Auto 600 /uL (0-900); Monocytes Percent Auto 6.4 % (3-14); Neutrophils Absolute Auto 7000 /uL (1500-7000); Neutrophils Percent Auto 72.9 % (50-75); Platelet Count 213 X10^3/uL (150-400); Red Blood Cell Count 4.75 X10^6/uL (4.0-5.2); Red Cell Distribution Width 12.9 % (11.6-14.8); White Blood Cell Count 9.6 X10^3/uL (4.5-11.0)
[2024-03-23 13:48] LABS: INR 0.9 (0.9-1.3); Prothrombin Time 10.4 SECONDS (9.4-12.5)
[2024-03-23 13:50] LABS: PTT Partial Thromboplastin Tim 36 SECONDS (25.1-36.5)
[2024-03-23 13:52] LABS: Alanine Aminotransferase 37 IU/L (<35); Albumin Globulin Ratio 1.1 (1.0-2.8); Alkaline Phosphatase 103 U/L (38-126); Aspartate Aminotransferase 36 IU/L (14-36); BUN Creatinine Ratio 11.2 (6-22); Bilirubin Total 0.3 mg/dL (0.2-1.3); Blood Urea Nitrogen 10 mg/dL (7-17); Calcium 8.6 mg/dL (8.4-10.2); Carbon Dioxide 21 mmol/L (22-32); Chloride 106 mmol/L (98-107); Creatine Kinase 76 U/L (30-135); Estimated Glomerular Filt Rate > 60 mL/min (>60); Globulin 3.5 g/dL (1.7-4.1); Glucose 156 mg/dL (80-110); HEMOLYSIS 17 (0-50); Lipase 466 U/L (23-300); Magnesium 1.4 mg/dL (1.6-2.3); Potassium 4.3 mmol/L (3.4-5.1); Sodium 138 mmol/L (137-145); Total Protein 7.5 g/dL (6.3-8.2)
[2024-03-23 14:03] LABS: NT-proBNP (BNP-Adult 18+) 418 pg/mL (<125); Troponin I < 0.012 ng/mL (0.01-0.034)
[2024-03-23 14:34] LABS: Influenza A - CEPHEID Flu A NEGATIVE (NEGATIVE); Influenza B - CEPHEID Flu B NEGATIVE (NEGATIVE); Respiratory Syncytial Virus Negative (Negative)
[2024-03-23 14:35] LABS: COVID-19 CEPHEID 4-PLEX PCR Negative (Negative)
--- NOTE | 2024-03-23 15:39 | ED.WEAKNESS ---
HPI - Weakness General Chief complaint: Weakness Stated complaint: weakness, exhaustion Time Seen by Provider: 03/23/24 14:56 Source: patient and family Mode of arrival: Wheelchair History of Present Illness HPI Narrative: Patient is a 72-year-old female new diagnosis of Alzheimer's presenting today with weakness. is at bedside is primary historian reports that she was started on a new Alzheimer's medications last week she had a bad reaction the medication was stopped. Symptoms from that seems to have resolved. She does not have a problem with insomnia they started melatonin few nights ago which does help. However last night she would what to take the melatonin she wanted to try a specialty. She did not sleep with the specialty. And this morning woke up and was doing okay and suddenly got very tired. She has no fever or chills. She sometimes has a stuffy nose but does not sound like he is having any sort of chest pain or shortness breath. No abdominal pain nausea or vomiting. She reports that she was on some antibiotics for for tooth infection they have 1 more antibiotic to take. Related Data Home Medications Medication Instructions Recorded Confirmed amlodipine 5 mg tablet 5 mg PO DAILY 09/26/18 09/03/19 atorvastatin 20 mg tablet 20 mg PO DAILY 09/26/18 09/03/19 olopatadine 0.1 % eye drops 1 drp ophthalmic (eye) DIRECTED 09/26/18 09/03/19 lisinopril 40 mg tablet 40 mg PO DAILY 04/14/19 09/03/19 calcium carbonate (Tums) 200 mg PO QID 07/28/19 09/03/19 alprazolam 0.25 mg tablet 0.25 mg PO BEDTIME PRN Anxiety 08/20/19 09/03/19 aspirin 325 mg tablet,delayed 325 mg PO DAILY 08/20/19 09/03/19 release citalopram 20 mg tablet 20 mg PO DAILY 08/20/19 09/03/19 Previous Rx's Medication Instructions Recorded ketorolac 10 mg tablet 10 mg PO Q6H PRN pain #14 tabs 07/31/19 Allergies Allergy/AdvReac Type Severity Reaction Status Date / Time No Known Drug Allergies Allergy Verified 07/05/23 14:53 Patient History Medical History (Updated 03/23/24 @ 15:56 by Mary Nichole DO) Depression Anxiety Dyslipidemia Hypertension Surgical History History of cataract surgery Hx of appendectomy Family History Father Hypertension Mother Hypertension Social History marital status: household members: spouse Smoking Status: Never smoker alcohol intake: never substance use type: does not use Smoking Status: Never smoker alcohol intake frequency: 0-2 drinks per day Exam Initial Vital Signs Initial Vital Signs: Vital Signs Temperature 98.9 F 03/23/24 12:31 Pulse Rate 100 H 03/23/24 12:31 Respiratory Rate 18 03/23/24 12:31 Blood Pressure 113/68 03/23/24 12:31 Pulse Oximetry 97 03/23/24 12:31 Oxygen Delivery Method Room Air 03/23/24 12:31 GENERAL: Alert pleasant 73-year-old female and in [no acute] distress. HEENT: Head atraumatic,EOMI, pupils reactive, face symmetric, poor dentition CARDIOVASCULAR: Regular rate and rhythm without murmurs, rubs or gallops. RESPIRATORY: Breath sounds equal bilaterally, no wheezes rales or rhonchi. ABDOMEN: Soft, nontender. Normoactive bowel sounds all 4 quadrants. No guarding or rebound. EXTREMITIES: Normal range of motion, no clubbing or edema. Neurovascularly intact NEUROLOGICAL: Alert oriented moving all extremities no focal deficits SKIN: Warm, dry, no laceration, no petechiae, no rashes or lesions. Course Orders Ordered: ED Orders 03/23/24 12:39 XR chest 1V Stat EKG-12 Lead Stat 03/23/24 13:20 Complete Blood Count AUTO DIFF Stat Comprehensive Metabolic Panel Stat Covid-19 + FLU A/B + RSV - PCR Stat Lipase Stat Magnesium Stat NT-proBNP (BNP-Adult 18+) Stat PTT Partial Thromboplastin Efren Stat Prothrombin Time INR Stat Troponin & CK Cardiac Panel Stat Vital Signs Vital signs: Vital Signs - 8 hr 03/23/24 12:31 03/23/24 12:50 03/23/24 12:50 Temperature 98.9 F Pulse Rate 100 H 96 H Respiratory Rate 18 Blood Pressure 113/68 109/69 Pulse Oximetry 97 97 Oxygen Delivery Method Room Air 03/23/24 13:00 03/23/24 13:00 03/23/24 13:30 Temperature Pulse Rate 99 H 103 H Respiratory Rate 17 Blood Pressure 111/72 Pulse Oximetry 96 97 Oxygen Delivery Method Room Air 03/23/24 14:00 03/23/24 14:30 03/23/24 14:59 Temperature Pulse Rate 94 H 100 H Respiratory Rate 18 18 Blood Pressure 107/65 Pulse Oximetry 96 97 Oxygen Delivery Method Room Air 03/23/24 14:59 03/23/24 15:00 03/23/24 15:00 Temperature Pulse Rate 93 H 94 H Respiratory Rate 21 21 Blood Pressure 106/68 Pulse Oximetry 98 98 Oxygen Delivery Method Room Air 03/23/24 15:30 03/23/24 15:30 03/23/24 16:00 Temperature Pulse Rate 88 86 Respiratory Rate 22 21 Blood Pressure 113/67 Pulse Oximetry 98 97 Oxygen Delivery Method 03/23/24 16:00 Temperature Pulse Rate Respiratory Rate Blood Pressure 111/65 Pulse Oximetry Oxygen Delivery Method MDM - Weakness Lab Data 03/23/24 13:20 03/23/24 13:20 Labs: Lab Results 03/23/24 Range/Units 13:20 WBC 9.6 (4.5-11.0) X10^3/uL RBC 4.75 (4.0-5.2) X10^6/uL Hgb 14.3 (12.0-16.0) g/dL Hct 42.8 (36-46) % MCV 90.1 (80-100) fL MCH 30.1 (26-34) PG MCHC 33.4 (30-36) % RDW 12.9 (11.6-14.8) % Plt Count 213 (150-400) X10^3/uL Neut % (Auto) 72.9 (50-75) % Lymph % (Auto) 19.0 L (25-40) % [place] % (Auto) 6.4 (3-14) % Eos % (Auto) 1.0 L (2-4) % Baso % (Auto) 0.7 (0-2) % Neut # (Auto) 7000 (4709-5029) /uL Lymph # (Auto) 1800 (2105-7209) /uL [place] # (Auto) 600 (0-900) /uL Eos # (Auto) 100 (0-450) /uL Baso # (Auto) 100 (0-100) /uL PT 10.4 (9.4-12.5) SECONDS INR 0.9 (0.9-1.3) APTT 36 (25.1-36.5) SECONDS Sodium 138 (137-145) mmol/L Potassium 4.3 (3.4-5.1) mmol/L Chloride 106 (98-107) mmol/L Carbon Dioxide 21 L (22-32) mmol/L BUN 10 (7-17) mg/dL Creatinine 0.89 (0.52-1.04) mg/dL Estimated GFR > 60 (>60) mL/min BUN/Creatinine Ratio 11.2 (6-22) Glucose 156 H (80-110) mg/dL Calcium 8.6 (8.4-10.2) mg/dL Magnesium 1.4 L (1.6-2.3) mg/dL Total Bilirubin 0.3 (0.2-1.3) mg/dL AST 36 (14-36) IU/L ALT 37 H (<35) IU/L Alkaline Phosphatase 103 (38-126) U/L Total Creatine Kinase 76 (30-135) U/L Troponin I < 0.012 (0.01-0.034) ng/mL NT-Pro-B Natriuret Pep 418 H (<125) pg/mL Total Protein 7.5 (6.3-8.2) g/dL Albumin 4.0 (3.5-5.0) g/dL Globulin 3.5 (1.7-4.1) g/dL Albumin/Globulin Ratio 1.1 (1.0-2.8) Lipase 466 H (23-300) U/L SARS-CoV-2 (PCR) Negative (Negative) Influenza A (RT-PCR) Flu a negative (NEGATIVE) Influenza B (RT-PCR) Flu b negative (NEGATIVE) RSV (PCR) Negative (Negative) Urine Dip Bedside Urine Glucose Negative Bedside Urine Bilirubin - Negative Bedside Urine Ketone - Negative Urine Specific [place] 1.000 Bedside Urine Occult Blood - Negative Bedside Urine pH 6.5 Bedside Urine Protein - Negative Bedside Urine Urobilinogen - Negative Bedside Urine Nitrite - Negative Bedside Urine Leukocytes - Negative Esterase Imaging Data Chest x-ray: Radiologist Impression: PROCEDURE: XR CHEST 1V INDICATIONS: chest pain TECHNIQUE: One view of the chest was acquired. COMPARISON: [facility], XR CHEST 1V, 08/04/2019, 9:54. [facility], CR, XR CHEST 1V, 07/27/2019, 23:39. FINDINGS: Surgical changes and devices: None. Lungs and pleura: Lungs are clear. No pleural effusions or pneumothorax. Mediastinum: Mediastinal contours appear normal. Heart size is normal. Bones and chest wall: No suspicious bony lesions. Overlying soft tissues appear unremarkable. IMPRESSION: No acute cardiopulmonary abnormality is seen. Dictated by: Bryan Simmons M.D. on 03/23/2024 at 13:43 ECG Data Attestation: I personally reviewed and interpreted this ECG as follows: Prior ECG tracings: available for review Interpretation: Sinus rhythm rate 109 significant artifact noted what I can tell it does appear similar she has a right bundle-branch block she was similar MDM Narrative Medical decision making narrative: Patient 73-year-old female recently diagnosed with damage presenting today with sudden onset tiredness and weakness. Sounds as though she did sleep last night because she did not what to take melatonin it is no tired. She had full workup in the ED. Blood work has been reviewed no significant clinical abnormality found. She has no leukocytosis or anemia troponin is negative electrolytes within normal limits, creatinine 0.8. Bilirubin liver enzymes within normal limits and reason ALT slightly high at 37. Urinalysis is negative for infection. Viral panel is negative. EKGs reviewed there is a lot of artifact but no ischemia she has a persistent right bundle-branch block Chest x-ray has been reviewed without acute cardiopulmonary process This time I think patient's symptoms today are related to her not taking melatonin last night. Discussed with patient and her they feel ready to go home she agrees to take melatonin tonight. Discharge Plan Departure Patient Disposition: Home Clinical Impression: Insomnia Instructions: Insomnia Activity Restrictions/Additional Instructions: *You have been diagnosed with insomnia *What to do: At this time take melatonin at night *Continue to take medications as directed Melatonin nightly *Follow up with your primary care provider in 2-3 days or call [phone] *Return to ER if you should have any new, worsening or concerning symptoms Prescriptions: No Action alprazolam 0.25 mg tablet 0.25 mg PO BEDTIME PRN (Reason: Anxiety) citalopram 20 mg tablet 20 mg PO DAILY aspirin 325 mg tablet,delayed release (DR/EC) 325 mg PO DAILY lisinopril 40 mg tablet 40 mg PO DAILY atorvastatin 20 mg tablet 20 mg PO DAILY amlodipine 5 mg tablet 5 mg PO DAILY olopatadine 0.1 % drops 1 drp ophthalmic (eye) DIRECTED Patient Comments: Bilateral calcium carbonate [Tums] 200 mg calcium (500 mg) Tablet,Chewable 200 mg PO QID ketorolac 10 mg tablet 10 mg PO Q6H PRN (Reason: pain) Qty: 14 0RF Referrals: Patricia Tamayo MD [Primary Care Provider] - Stand Alone Forms: Patient Portal/API/Survey
== END 2024-03-23 16:10 | disposition home or self-care (01) ==
PROVIDERS: Emergency Provider Emergency Medicine; PCP Family Medicine
DX: G47.00 Insomnia, unspecified (principal); R07.9 Chest pain, unspecified; R00.0 Tachycardia, unspecified; I45.10 Unspecified right bundle-branch block
CPT/HCPCS: 0241U; 36415; 71045; 80053; 81003; 82550; 83690; 83735; 83880; 84484; 85025; 85610; 85730; 93005; 99283; 99284

== ENCOUNTER → 2024-04-02 16:17 | Outpatient (CLI) | payer MEDICARE, OTHER, SELFPAY ==
[2019-08-27 11:23] VITALS: BMI 22.2
--- NOTE | 2024-04-02 16:18 | DI.MRI.S_ITS ---
PROCEDURE: MR STROKE Pre- and post-contrast brain MRI, non-contrast brain MR angiogram, pre- and postcontrast neck MR angiogram INDICATIONS: COGNITIVE AND BEHAVIORAL CHANGES TECHNIQUE: Brain: Noncontrast axial T1 spin echo, axial T2 fast spin echo, sagittal and axial FLAIR, coronal T2 fast spin echo, axial gradient echo, axial diffusion and ADC through the brain. After the administration of contrast, axial 3D VIBE of the cranial vasculature and brain. Brain MRA: Non-contrast 3-D time of flight MR angiogram, with multiple [id number]-nsqezcmvnr (MIP) reformats performed. Neck MRA: Axial and sagittal TruFISP through the neck. Coronal dynamic MR angiogram during administration of contrast in the arterial and venous phases, with 3-dimenstional hdudfft-vxpsfsvxl-mznsbzueed (MIP) reformats constructed from subtraction images. COMPARISON: [facility], CT, CT HEAD/BRAIN WO CON, 07/05/2023, 15:50. (Additional prior imaging is not available for review from the archive at the time of this dictation.) FINDINGS: Image quality: This examination is limited by involuntary motion artifact. BRAIN: CSF spaces: Ventricles are normal in size and shape. Basal cisterns are patent. No extra-axial fluid collections. Brain: No intracranial bleeds or mass effects. [place]-white matter interface is normal. Diffusion weighted images show no acute infarct. Brainstem appears normal. Normal intravascular flow voids are present. No abnormal intracranial enhancement. Skull and face: Calvarial marrow signal is normal. Orbits appear normal. Note is made of bilateral lens replacements. Sinuses: Sinuses and mastoids are clear. BRAIN MR ANGIOGRAM: Anterior circulation: Intracranial internal carotid arteries are normal in size and flow. There is a hypoplastic right A1 segment, with a corresponding robust left A1 segment. This is considered to be a normal developmental variant of the [place], of typically no clinical consequence. The flow within the paired anterior cerebral arteries is otherwise normal and symmetric. The flow within the middle cerebral arteries is normal and symmetric. The anterior communicating artery is seen. No aneurysms are seen. Posterior circulation: The visualized portions of the vertebral arteries demonstrate normal caliber, and join to form a normal appearing basilar artery. The flow within the posterior cerebral arteries is normal and symmetric. No stenoses, occlusions, or aneurysms. NECK MR ANGIOGRAM: Carotids: Great vessels demonstrate a conventional anatomy as they arise from the aortic arch. The origins of the common carotid arteries appear patent. The calibers and courses of both common carotid arteries are normal. The bifurcation regions appear normal bilaterally. The internal carotid arteries demonstrate normal course and caliber. Posterior circulation: The origins of the vertebral arteries appear patent. More superior portions of both vertebral arteries demonstrate normal course and caliber, and join to form a normal appearing basilar artery. Miscellaneous: Subclavian arteries appear patent. Pre-contrast images through the neck show no soft tissue abnormalities. IMPRESSION: Motion limited study. BRAIN MRI: No imaging explanation is found for this patient's presenting symptoms. No masses or abnormal enhancement can be seen. No findings of acute or subacute infarction can be seen. No prior territorial infarct can be seen. BRAIN MR ANGIOGRAM: No significant intracranial arterial abnormality is seen. Jdqavl-[id number] developmental anomalies are incidentally noted. NECK MR ANGIOGRAM: Within the arteries of the neck, no hemodynamically significant stenosis can be seen. Dictated by: Canelo Antonio M.D. on 04/02/2024 at 17:01 Approved by: Canelo Antonio M.D. on 04/02/2024 at 17:07
== END ==
PROVIDERS: PCP Family Medicine; Referring Provider Family Medicine; Visit Provider Family Medicine
DX: G45.9 Transient cerebral ischemic attack, unspecified (principal); R41.89 Other symptoms and signs involving cognitive functions and awareness; R46.89 Other symptoms and signs involving appearance and behavior
CPT/HCPCS: 70544; 70549; 70553; A9579